=== PATIENT | female | born 1980 | race Caucasian/White ===

== ENCOUNTER 2024-02-16 07:30 | Outpatient (RCR) | payer BC, SELFPAY | END 2024-04-22 08:50 | disposition home or self-care (01) | PROVIDERS: PCP Physician Assistant Medical; Visit Provider Physician Assistant Medical | DX: M54.50 Low back pain, unspecified (principal); Z51.89 Encounter for other specified aftercare | CPT/HCPCS: 80053; 80061; 84443; 97032; 97110; 97140; 97161 ==

== ENCOUNTER 2024-09-13 20:07 | Observation (INO) | payer BC, SELFPAY ==
--- OUTSIDE RECORDS SUMMARY | 2024-09-13 20:09 | XMS_ITS | Encounter Summary ---
Author Organization [place] Address [facility] [place] [address] Care Team Providers Care Direct Entry Midwife Name Role Phone Jared Murillo MD Primary Care Provider [phone] Marc Conn PA-C Unavailable [phone] Sabina Lowery MD Unavailable + Nithin Abbott MD Unavailable Marc Conn PA-C Unavailable [phone] Suzette Hough [facility] Unavailable [phone] Sabina Lowery MD Unavailable + Marc Conn PA-C Unavailable [phone] Sabina Lowery MD Unavailable + Aniket Curiel MD Unavailable Jared Murillo MD Unavailable Reason for Visit * Reason Comments Medication Refill Encounter Details Date Type Department Care Team (Late st Contact Info) Description 06/24/[address] [phone] Sabina Lowery MD [facility] [address] [address] Medication Refill Social History Tobacco Use Types Packs/Day Years Used Date Smoking Tobacco: Every Day Cigarettes Last attempted to quit: 02/27/2019 Smokeless Tobacco: Never Comments:4-5 cigrates every day. Alcohol Use Standard Drinks/Week Comments Yes 0 (1 standard drink = 0.6 oz pur e alcohol) socially Social Connection and Isolat ion Panel [NHANES] Answer Date Recorded Frequency of Communication w ith Friends and Family Once a week 09/05/2019 Frequency of Social Gatherin gs with Friends and Family Once a week 09/05/2019 Attends Congregational Services Never 09/05 Active Member of Clubs or Organizations Yes 09/05/2019 Attends Club or Organization Meetings More than 4 times per year 09/05/2019 Marital Status 09/05/2019 AUDIT-C Answer Date Recorded Q1: How often do you have a drink containing alc ohol? Monthly or less 09/05/2019 Q2: How many drinks containi ng alcohol do you have on a typical day when you are drinking? 3 or 4 09/05/2019 Q3: How often do you have si x or more drinks on one occasion? Less than monthly 09/05/2019 Overall Financial Resource Strain (CARDIA) Answe r Date Recorded How hard is it for you to pa y for the very basics like food, housing, medical care, and heating? Somewhat hard 09/05/2019 PHQ-2 Answer Date Recorded PHQ-2 Score 2 12/04/2020 [facility] - Occupational Stress Questionnaire Answer Date Recorded Feeling of Stress Very much 09/05/2019 Exercise Vital Sign Answer Date Recorde d Days of Exercise per Week 0 days 2019 Minutes of Exercise per Session 0 min 09/05/2019 Hunger Vital Sign Answer Date Recorded Within the past 12 months, y ou worried that your food would run out before you got the money to buy more. Never true 09/05/19 20 Within the past 12 months, t he food you bought just didn't last and you didn't have money to get more. Never true 09/05/2019 PRAPARE - Transportation Answer Date Re corded In the past 12 months, has l ack of transportation kept you from medical appointments or from getting medications? No 12/2019 In the past 12 months, has l ack of transportation kept you from meetings, work, or from getting things needed for daily living? No 09/05/2019 Education Answer Date Recorded What is the highest level of school you have completed or the highest degree you have received? Master's degree (e.g., MA, MS, Hola, MEd, LOOP CUTTER, YASMANY) 09/05/2019 Comments No Sex and Gender Information Value Date Recorded Sex Assigned at Female 11/08/2021 8:44 PM CDT Legal Sex Female 4:39 AM SENIOR TEST ENGINEER Gender Identity Female 11/08/2021 8:44 PM CDT Sexual Orientation Straight 11/08/2021 8: 44 PM CDT documented as of this encounter Miscellaneous Notes * Telephone Encounter - Nichol Mendoaz RN - 06/25/2021 11:34 AM CST Prescription approved per [facility] Refill Protocol. For one time needs PX Nichol Mendoza RN OR TEST ENGINEER documented in this encounter Plan of Treatment Not on file documented as of this encounter Visit Diagnoses Diagnosis General counseling for prescription of oral contraceptives documented in this encounter Additional Health Concerns Assessment Noted Time PHQ-9 Depression Total Score: 13 020 7:03 AM SENIOR TEST ENGINEER documented as of this encounter Care Teams Direct Entry Midwife Relationship Specialty Start Date End Date Jared Murillo MD PCP - General Family Practice 12/25/18 Marc Conn PA-C [address] [place] [address] Assigned PCP 12/24/20 08/07/21 Sabina Lowery MD [facility] [address] [place] [address] Assigned PCP 08/08/21 12/24/21 Nithin Abbott MD [address] [address] [place] [address] Assigned OBGYN Provider 12/25/2105/20 Marc Conn PA-C [facility] [address] [address] Assigned PCP 12/25/21 06/10/22 Suzette Hough CNM [address] [place] [address] Assigned OBGYN Provider 05/21/22 Sabina Lowery MD [address] [place] [address] Assigned PCP 06/11/22 07/15/22 Marc Conn PA-C [facility] [address] [address] Assigned PCP 07/16/22 09/23/22 Sabina Lowery MD [address] [place] [address] Assigned PCP 09/24/22 12/23/22 Aniket Curiel MD [address] [place] [address] Assigned PCP 12/24/22 02/19/24 [place] [address] [place] [address] Assigned PCP 02/20/24 documented as of this encounter
--- OUTSIDE RECORDS SUMMARY | 2024-09-13 20:09 | XMS_ITS | Encounter Summary ---
Author Organization [employer] Address [address] [place] [address]. [place] [address] Care Team Providers Care Continuous Improvement Analyst Name Role Phone Jared Murillo MD Unavailable Jared Murillo MD Primary Care Provider [phone] Sabina Lowery MD Unavailable + Jeffry Naqvi DPGlenys Unavailable [phone] Marc ConnC Unavailable [phone] Sabina Lowery MD Unavailable + iNthin Abbott MD Unavailable Marc ConnC Unavailable [phone] [place] Suzette Ro CNGlenys Unavailable Sabina Lowery MD Unavailable + Marc Conn PA-C Unavailable [phone] Sabina Lowery MD Unavailable + Aniket Curiel MD Unavailable [phone] Jared Murillo MD Unavailable Reason for Visit * Reason Onset Date Comments MH/CD Inpatient 06/21/2019 Encounter Details Date Type Department Care Team (Late st Contact Info) Description 06/21/2019 Telephone [facility] Health Intake [address] [place] [address] Generic, Behavioral Intake, MH/CD Inpatient Social History Tobacco Use Types Packs/Day Years Used Date Smoking Tobacco: Light Smoker Cigarettes Last attempted t o quit: 02/27/2019 Smokeless Tobacco: Never Comments:only smokes when [place] e[place] at the [place] Alcohol Use Standard Drinks/Week Comments Never 0 (1 standard drink = 0.6 oz pur e alcohol) socially AUDIT-C Answer Date Recorded Frequency of Alcohol Consumption Never 06/21/2019 Average Number of Drinks Not on file 019 Frequency of Binge Drinking Not on file 06/01 PHQ-2 Answer Date Recorded PHQ-2 Score 2 05/16/2019 Comments No Sex and Gender Information Value Date Recorded Sex Assigned at Female 11/08/2021 8:44 PM CDT Legal Sex Female 4:39 AM TRENCH DIGGER HELPER Gender Identity Female 11/08/2021 8:44 PM CDT Sexual Orientation Straight 11/08/2021 8: 44 PM CDT documented as of this encounter Miscellaneous Notes * Telephone Encounter - Aura Oviedo RN - 06/21/2019 6:02 PM CST Pt discharged at 1630 to [facility] Waitlist updated to reflect this CH DIGGER HELPER * Telephone Encounter - Luciano Nuñez - 06/21/2019 10:57 AM TRENCH DIGGER HELPER [facility] is reviewing case; technical publications writer heather Taylor ED contact information for any follow up questions; awaiting response CH DIGGER HELPER * Telephone Encounter - Luciano Nuñez - 06/21/2019 10:30 AM TRENCH DIGGER HELPER S - 38/F presenting to ED after suicidal ideation w/ plan and gesture B - Pt. Suicidal w/ plan to drive her car into a field and asphyxiate herself. had Pt. Brother go check on her. suspicious because she was not going to work today. Pt. Reports stress related w/ family conflict and kids who have mental health concerns and possible marital problems. Pmh/x MDD hx of attempts hx of IP MH tx in [facility] 2004 , Pt. Struggles to sleep 3 to 4 hours a night in the past week. A - Vol R - Pt. Requesting admission to [facility] Pt. Reports [facility] is appropriate Due to patients Job patient cannot go to [facility] CH DIGGER HELPER documented in this encounter Plan of Treatment Not on file documented as of this encounter Visit Diagnoses Not on filedocumented in this encounter Additional Health Concerns Infection Onset Date Last Indicated Resolved Time Rule Out COVID-19 04/22/2020 04/22/2020 04/23/2020 7:32 PM CDT Assessment Noted Time PHQ-9 Depression Total Score: 7 05/16/20 19 10:43 AM CDT documented as of this encounter Care Teams Continuous Improvement Analyst Relationship Specialty [place] [address] [place] [address] PCP - General Family Practice 12/25/18 [place] [address] [place] [address] Assigned PCP 07/26/18 03/07/20 Sabina Lowery MD [facility] [address] [place] [address] [address] [place] [address] Assigned PCP 03/08/20 12/23/20 Jeffry Naqvi DPM [address] [facility] [address] [place], [place] [address] Assigned Musculoskeletal Provider 05/22/20 11/21/20 Marc Conn PA-C [address] [place] [address] Assigned PCP 12/24/20 08/07/21 Sabina Lowery MD [facility] [address] [place] [address] Assigned PCP 08/08/21 12/24/21 Nithin Abbott MD [address] [facility] [address] [place] [address] Assigned OBGYN Provider 12/25/2105/20 Marc Conn PA-C [facility] [address] [address] Assigned PCP 12/25/21 06/10/22 Suzette Hough CNM [address] [place] [address] Assigned OBGYN Provider 05/21/22 Sabina Lowery MD [facility] [address] [place] [address] Assigned PCP 06/11/22 07/15/22 Marc Conn PA-C [address] [place] [address] Assigned PCP 07/16/22 09/23/22 Sabina Lowery MD [address] [place] [address] Assigned PCP 09/24/22 12/23/22 Aniket Curiel MD [address] [place] [address] Assigned PCP 12/24/22 02/19/24 [place] [address] [address] [place] [address] Assigned PCP 02/20/24 documented as of this encounter
--- OUTSIDE RECORDS SUMMARY | 2024-09-13 20:09 | XMS_ITS | Encounter Summary ---
Author Organization [place] Address [facility] [place] [address] Care Team Providers Care Dampener Name Role Phone Jared Murillo MD Primary Care Provider [phone] Sabina Lowery MD Unavailable + Nithin Abbott MD Unavailable [phone] Marc Conn PA-C Unavailable [phone] Suzette Hough [facility] Unavailable [phone] Sabina Lowery MD Unavailable + Marc Conn PA-C Unavailable [phone] Sabina Lowery MD Unavailable + Aniket Curiel MD Unavailable Jared Murillo MD Unavailable Encounter Details Date Type Department Care Team (Late st Contact Info) Description 11/08/2021 MyC Medical Advice [address] [address] Chadwick Rosado Social History Tobacco Use Types Packs/Day Years [...] and Family Once a week 09/05/2019 Attends Worship Services Never 09/05 Active Member of Clubs [...] Answer Date Recorded PHQ-2 Score 2 12/04/2020 [facility] - [...] Master's degree (e.g., MA, MS, Hola, MEd, TRAINING CONSULTANT, YASMANY) 09/05/2019 Comments No Sex and Gender Information Value Date Recorded Sex Assigned at Female 11/08/2021 8:44 PM CDT Legal Sex Female 4:39 AM ACCOUNTING DIRECTOR Gender Identity Female 11/08/2021 8:44 PM CDT Sexual Orientation Straight 11/08/2021 8: 44 PM CDT documented as of this encounter Plan of Treatment Not on file documented as of this encounter Visit Diagnoses Not on filedocumented in this encounter Additional Health Concerns Assessment Noted Time PHQ-9 Depression Total Score: 13 020 7:03 AM ACCOUNTING DIRECTOR documented as of this encounter Care Teams Dampener Relationship Specialty Start Date End Date Jared Murillo MD PCP - General Family Practice 12/25/18 Sabina Lowery MD [facility] [address] [place] [address] Assigned PCP 08/08/21 12/24/21 Nithin Abbott MD [address] [facility] [address] [place] [address] Assigned OBGYN Provider 12/25/2105/20 Marc Conn PA-C [address] [place] [address] Assigned PCP 12/25/21 06/10/22 Suzette Hough CNM [address] [address] [place] [address] Assigned OBGYN Provider 05/21/22 Sabina Lowery MD [facility] [address] [place] [address] Assigned PCP 06/11/22 07/15/22 Marc Conn PA-C [address] [place] [address] Assigned PCP 07/16/22 09/23/22 Sabina Lowery MD [address] [place] [address] Assigned PCP 09/24/22 12/23/22 Aniket Curiel MD [address] [address] Assigned PCP 12/24/22 02/19/24 [place] [address] [place] [address] Assigned PCP 02/20/24 documented as of this encounter
--- OUTSIDE RECORDS SUMMARY | 2024-09-13 20:09 | XMS_ITS | Encounter Summary ---
Author Organization [employer] Address [address] [place] [address] Care Team Providers Care Franchise Business Consultant Name Role Phone Shila Dosuza PA-C Primary Care Provider Reason for Visit * Reason Comments BACK PAIN Right Back/Buttock D OI: chronic issue exacerbated on Sep 05MOI: bulged disc, arthritis Encounter Details Date Type Department Care Team (Late st Contact Info) Description 09/11/2024 7:50 PM CORE MICROARCHITECT Office Visit [facility] at [address] [address] Madi Pal MD [address] [place] [id number] Chronic bilateral low back pain without sciatica (Primary Dx) Social History Tobacco Use Types Packs/Day Years Used Date Smoking Tobacco: Former Cigarettes 0.1 22 0 11/22/1992 - 11/22/2014 Smokeless Tobacco: Never Comments:1 pack a month Alcohol Use Standard Drinks/Week Comments Yes 0 (1 standard drink = 0.6 oz pur e alcohol) 2-3 every three months Humiliation, Afraid, Rape, and Kick questionnair e Answer Date Recorded Within the last year, have y ou been afraid of your partner or ex-partner? No 09/12/2024 Within the last year, have y ou been humiliated or emotionally abused in other ways by your partner or ex-partner? No Within the last year, have y ou been kicked, hit, slapped, or otherwise physically hurt by your partner or ex-partner? No 09/12/2024 Within the last year, have y ou been raped or forced to have any kind of sexual activity by your partner or ex-partner? 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 on file Not on file Not on file documented as of this encounter Last Filed Vital Signs Vital Sign Reading Time Taken Comments Blood Pressure - - Pulse - - Temperature 37.1 C (98.7 F) 09/11/2024 7:53 PM CORE MICROARCHITECT Respiratory Rate - - Oxygen Saturation - - Inhaled Oxygen Concentration - - Weight 89.8 kg (198 lb) 09/11/2024 7:53 PM CORE MICROARCHITECT Height 165.1 cm (5' 5) 09/11/2024 7:53 PM CORE MICROARCHITECT Body Mass Index 32.95 09/11/2024 7:53 PM CORE MICROARCHITECT documented in this encounter Patient Instructions * Patient Instructions* Karla Arriaga, ATC - 09/11/2024 7:50 PM CORE MICROARCHITECT Thank you for choosing [facility] for your health care visit today. If you have any questions regarding your visit or next steps, please contact us at [phone]. Madi Pal MD Medication Requests: Prescriptions are filled on Weekdays before 3:00PM For all medication refills: Request a refill using MyChart or contact your Pharmacy Paperwork Requests: FMLA or disability paperwork can be faxed to: [phone] Please allow 7-10 business days for completion of all paperwork. [facility] Worker's Compensation Services: E-mail Address: [email or web address] What is Know Your Cost? Know Your Cost is a service for patients and patient/members to call and receive personalized cost information and estimates across our care group. The phone number is (COST) Monday - Monday 8 AM to 5 PM To request copies of your medical records, call: [phone] (option 4) Diagnosis: Encounter Diagnosis Name Primary? Chronic bilateral low back pain without sciatica Yes Plan: Follow Up: Schedule an appointment with Dr. Blackman for further care. Medications: The following medications were prescribed at your visit : Orders Placed This Encounter Medications methocarbamol (ROBAXIN) 750 MG tablet Sig: Take 1 Tablet (750 mg) by mouth two times daily as needed for up to 14 days. Dispense: 28 Tablet Refill: 0 Medication Refill Requests: Prescription Refill Requests are not filled on Weekends or on Weekdays after 3:00PM For all medication refills: Request a refill using [place] or contact your Pharmacy MICROARCHITECT documented in this encounter Progress Notes * Madi Pla MD - 09/11/2024 7:50 PM CST [facility] Note Date of visit: 09/11/2024 Chief Complaint Patient presents with BACK PAIN Right Back/Buttock DOI: chronic issue exacerbated on Sep 05 NANCY: bulged disc, arthritis HPI: Madison Chaudhari is a 44 y.o. female who presents today fas an established patient for acute on chronic low back pain. Patient sees Dr. Blackman who has been managing her chronic back pain. She has received benefit from epidural injections. Most recently had right paramedian L5-S1 ILESI on 05/20/[address] Blackman. Her back pain was though to be primarily axial. Reports symptoms exacerbated on 09/05/24. Has taken Meloxicam, Acetaminophen, TENS unit, stretches, and chiropractor thus far. Had steroid injection in April which helped. Went on a cruise last week and it started getting worse on 09/05/24 on the cruise. Went to chiropractor today. Now pain is a 10/10. Right low back is mostpainful right now. Patient takes Meloxicam 15mg daily for her back. Has been sleeping OK. Pain is not radiating down legs. Driving is the worst. Sitting is OK. Denies any specific injury or inciting event. The beds were not the most comfortable. History: PMH, PSH, Medications, Allergies were reviewed ROS: No additional concerns noted as per HPI Vital Signs Filed Vitals: 09/11/241952 Temp: 37.1 ??C (98.7 ??F) TempSrc: Oral Weight: 89.8 kg (198 lb) Height: 1.651 m (5' 5) Physical Exam General - No acute distress but does appear in pain. Head - Normocephalic, Atraumatic Eyes - Normal conjunctiva Heart - No cyanosis Lungs - Respirations unlabored Skin - No obvious rash Psych - Cooperative with exam. Odd affect. Musculoskeletal - Back: Inspection - No gross deformity. No erythema or unusual warmth. Palpation - No TTP over lumbar spinous process. No TTP over lumbar facets. TTP over right lower lumbar paraspinal muscles. No TTP over SI joint b/l. ROM - Active extension to 25 degrees (mild pain_. Active flexion to 90 degrees. Active right lateral flexion to 25 degrees. Active left lateral flexion to 25 degrees. Normal right lateral rotation. Normal left lateral rotation. Myotome Strength - L2 (hip flexion): 5/5 L3 (knee extension): 5/5 L4 (ankle dorsiflexion): 5/5 L5 (great toe dorsiflexion): 5/5 S1 (ankle plantar flexion): 5/5 Special Tests - Negative SLR b/l. Negative cross SLR b/l. Negative NELDA test b/l. Negative Slump test b/l. Imaging MRI Lumbar Spine without Contrast on 01/09/24: Multilevel degenerative disc disease. Disc space heights are maintained. No significant facet arthropathy. Suspect mild bilateral SI degenerative joint disease. T11-T12: No significant bulge or posterior disc protrusion. No significant thecal sac stenosis. No significant neural foraminal stenosis. T12-L1: No significant bulge or posterior disc protrusion. No significant thecal sac stenosis. No significant neural foraminal stenosis. L1-L2: No significant bulge or posterior disc protrusion. No significant thecal sac stenosis. No significant neural foraminal stenosis. L2-L3: Mild bulge. Small central posterior disc protrusion with punctate focus increased T2 signal suggesting annular fissure. No significant thecal sac stenosis. No significant neural foraminal stenosis. L3-L4: Mild bulge. Small central posterior disc protrusion with punctate focus increased T2 signal suggesting annular fissure. No significant thecal sac stenosis. No significant neural foraminal stenosis. L4-L5: Mild bulge. Small central posterior disc protrusion. Mild thecal sac stenosis. No significant neural foraminal stenosis. L5-S1: Mild bulge. No significant thecal sac stenosis. No significant neural foraminal stenosis. Independently reviewed by myself Assessment: ICD-10-CM 1. Chronic bilateral low back pain without sciatica M54.50 methocarbamol (ROBAXIN) 750 MG tablet G89.29 Plan Patient has flare up of chronic back pain. It does appear axial in nature. There is no evidence of lumbar radiculopathy. Continue conservative treatment with TENS unit, home care liaison, physical therapy, Meloxicam, and Tylenol. Patient may have possible underlying diagnosis of Fibromyalgia. Rx sent for Methocarbamol 750mg BID PRN to pharmacy. Recommend contacting Dr. Blackman's office if no improvement. Could consider repeat injection as that has helped her or possibly Medrol dose pack if no significant improvement. Madi Pal MD, CAQSM [facility] MICROARCHITECT documented in this encounter Plan of Treatment Not on file documented as of this encounter Visit Diagnoses Diagnosis Chronic bilateral low back pain without sciatica- Primary documented in this encounter Care Teams Franchise Business Consultant Relationship Specialty Start Date End Date Shila Dsouza PA-C [address] [place] [address] PCP - General Physician Interrelated Special Education Teacher 02/14/17 documented as of this encounter
--- OUTSIDE RECORDS SUMMARY | 2024-09-13 20:09 | XMS_ITS | Clinical Summary ---
Author Organization [employer] [facility] Address [place], [place] [address] Care Team Providers Care Induction Furnace Operator Name Role Phone Unknown, Primary Care Provider Unavailabl e Allergies No known active allergies Medications clonazePAM (KLONOPIN) 0.5 mg tablet Take 0.5 mg by mouth at bedtime if needed. 1 Active desvenlafaxine (KHEDEZLA) 50 mg Extended-Release tablet TAKE 1 TABLET BY MOUTH ONE TIME DAILY ALONG WITH 25MG 1 Active Docosahexanoic Acid-Eicosapent 120-180 mg cap Take 2 g by mouth. Active Blisovi Fe , tablet Take 1 Tablet by mouth once daily. 1 Active buPROPion (WELLBUTRIN XL) 150 mg Extended-Release tablet Take 150 mg by mouth once daily. 1 Active fluticasone (50 mcg per actuation) nasal solution (FLONASE)Indicati ons:Eustachian tube dysfunction, bilateral,Acute non-recurrent pansinusitis Inhale 2 Sprays to both nostrils once daily. 16 g 1 Active Active Problems No known active problems Social History Tobacco Use Types Packs/Day Years Used Date Smoking Tobacco: Never Assessed Comments No Sex and Gender Information Value Date Recorded Sex Assigned at Not on file Legal Sex Female 7:26 AM DIRECTOR SPEECH LANGUAGE Gender Identity Not on file Sexual Orientation Not on file Obstetrics History Last Filed Vital Signs Vital Sign Reading Time Taken Comments Blood Pressure 115/80 04/08/2021 8:59 AM CDT Pulse 78 04/08/2021 8:59 AM CDT Temperature 36.5 C (97.7 F) 04/08/2021 8:59 AM CDT Respiratory Rate 16 04/08/2021 8:59 AM CDT Oxygen Saturation 97% 04/08/2021 8:59 AM CDT Inhaled Oxygen Concentration - - Weight 72.6 kg (160 lb) 04/08/2021 8:59 AM CDT Height 166.4 cm (5' 5.5) 04/08/2021 8:59 AM CDT Body Mass Index 26.22 04/08/2021 8:59 AM CDT Plan of Treatment Health Maintenance Due Date Last Done Comments Tdap 1990 Depression screening for age 12+ 1991 HIV for age 15-65 1994 Hepatitis C screening for ag e 18-79 1997 Tetanus booster 1999 Pap test for age 21-65 2000 BMI (ht and wt on same day) for age 18+ 04/08/2022 04/08/2021 COVID-19 vaccine series (2023- season) 2024 10/03/2020 Influenza for age 9-49 03/31/2024 Colonoscopy through age 75 2024 Lipids for age 45-75 2024 Mammogram for age 45-75 2024 Pneumococcal series for age 6-49 Aged Out No longer eligible based on patient's age to complete this topic Insurance [facility] Care Teams Induction Furnace Operator Relationship Specialty Start Date End Date Unknown, PCP - General 07/26/07
--- OUTSIDE RECORDS SUMMARY | 2024-09-13 20:09 | XMS_ITS | Encounter Summary ---
Author Organization [place] Address [facility] [place] [address] Care Team Providers Care Lime Kiln Worker Helper Name Role Phone Jared Murillo MD Unavailable Jared Murillo MD Primary Care Provider [phone] Sabina Lowery MD Unavailable + Jeffry Naqvi DPM Unavailable Marc ConnC Unavailable [phone] Sabina Lowery MD Unavailable + Nithin Abbott MD Unavailable [phone] Marc ConnC Unavailable [place] Suzette Ro CNGlenys Unavailable [phone] Sabina Lowery MD Unavailable + Marc Conn PA-C Unavailable [phone] Sabina Lowery MD Unavailable + Aniket Curiel MD Unavailable Jared Murillo MD Unavailable Encounter Details Date Type Department Care Team (Late st Contact Info) Description 03/06/[address] [facility] Behavioral Health Intake [address] [place] [address] Generic, Behavioral MD Jerardo Social History Tobacco Use Types Packs/Day Years Used Date Smoking Tobacco: Light Smoker Cigarettes Last attempted t o quit: 02/27/2019 Smokeless Tobacco: Never Comments:only smokes [place] Alcohol Use Standard Drinks/Week Comments Yes 0 (1 standard drink = 0.6 oz pur e alcohol) socially Social Connection and Isolat ion Panel [NHANES] Answer Date Recorded Frequency of Communication w ith Friends and Family Once a week 09/05/2019 Frequency of Social Gatherin gs with Friends and Family Once a week 09/05/2019 Attends Adventism Services Never 09/05 Active Member of Clubs [...] 09/05/2019 PHQ-2 Answer Date Recorded PHQ-2 Score 3 02/03/2020 [facility] - Occupational Stress [...] Master's degree (e.g., MA, MS, Hola, MEd, DOT COMPLIANCE SPECIALIST, [place]) 09/05/2019 Comments No Sex and Gender Information Value Date Recorded Sex Assigned at Female 11/08/2021 8:44 PM CDT Legal Sex Female 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 Gender Identity Female 11/08/2021 8:44 PM CDT [...] Assessment Noted Time PHQ-9 Depression Total Score: 12 020 1:08 PM CDT documented as of this encounter Care Teams Lime Kiln Worker Helper Relationship Specialty [place] [address] [address] [address] PCP - General Family Practice 12/25/18 [place] [address] [address] [address] Assigned PCP 07/26/18 03/07/20 Sabina Lowery MD [facility] [address] [place] [address] [address] [place] [address] Assigned PCP 03/08/20 12/23/20 Jeffry Naqvi DPM [address] [facility] [address] [place] [address] Assigned Musculoskeletal Provider 05/22/20 11/21/20 Marc Conn PA-C [address] [place] [address] Assigned PCP 12/24/20 08/07/21 Sabina Lowery MD [facility] [address] [place] [address] Assigned PCP 08/08/21 12/24/21 Nithin Abbott MD [address] [facility] [address] [place] [address] Assigned OBGYN Provider 12/25/2105/20 Marc Conn PA-C [address] [place] [address] Assigned PCP 12/25/21 06/10/22 Suzette Hough CNM [address] [place] [address] Assigned OBGYN Provider 05/21/22 Sabina Lowery MD [facility] [address] [facility] [address] [place] [address] Assigned PCP 06/11/22 07/15/22 Marc Conn PA-C [address] [place] [address] Assigned PCP 07/16/22 09/23/22 Sabina Lowery MD [address] [place] [address] Assigned PCP 09/24/22 12/23/22 Aniket Curiel MD [address], [place] [address] Assigned PCP 12/24/22 02/19/24 [place] [address] [place] [address] Assigned PCP 02/20/24 documented as of this encounter
--- OUTSIDE RECORDS SUMMARY | 2024-09-13 20:09 | XMS_ITS | Continuity of Care Document ---
Author Organization Z [facility] Address [address] [place] [phone] Phone Care Team Providers Care Bottom Bleacher Name Role Phone Unavailable Unavailable Unavailable Procedures Procedure Date Office/outpatient visit,[facility] 2005 X-ray exam of thoracic spine 2 view Advance Directives Directive Yes / No Effective Date File Name No Information Encounters Encounter Description Practice Location Reason(s) For Visit Diagnoses Date Provider Providers Copied on Encounter Z [facility] [place], [address], [address], tel:[phone] [employer] No Information 0200 8 No Information Office/outpat ient visit,[facility], [facility] Z [facility] [place], [address], [place], [address], tel:[phone] [employer] No Information 9200 6 Estefany Guajardo. [facility] [place], [address], [place], [place], [address], . tel:[phone] Referring Provider: Bennett Clemente, [facility] [address], [place] [address], [place], [address] . tel:[phone] Family History Family Member Type Diagnosis Age At Onset No Information Payers Payer name Insurance type Covered alliance party ID Authoriza tirodrigo(s) [facility] [id number] Social History Type Description Quantity Date Captured Comments Sex Female Smoking Status No Information Chief Complaint And Reason For Visit No Information Reason For Referral Reason For Referral No Information History Of Present Illness Encounter Date Complaint History Of Prese nt Illness No Information Functional Status Date Functional Assessmen t No Information Instructions Date Instruction Additional Infor mation No Information Assessments Type Assessment Date No Information Patient Care Teams Name Effective Dates (start - stop) Status Members No Information
--- OUTSIDE RECORDS SUMMARY | 2024-09-13 20:09 | XMS_ITS | Clinical Summary ---
Author Organization [employer] Address [facility] [place] [address] Care Team Providers Care Commercial Food Instructor Name Role Phone Jared Murillo MD Primary Care Provider [phone] Jared Murillo MD Unavailable Allergies No known active allergies Medications * This document contains information received from the source organization and may not represent a complete record from that organization. vitamin B complex with vitamin C (STRESS TAB) tablet Take 1 tablet by mouth daily Active clonazePAM (KLONOPIN) 0.5 MG tabletIndications :MDD (major depressive disorder), recurrent episode, moderate (H) Take 1/2 to 1 po tid prn anxiety 90 tablet 07/29/20 19 Active fish oil-omega-3 fatty acids 1000 MG capsule Take 2 g by mouth daily Active desvenlafaxine (PRISTIQ) 100 MG 24 hr tablet Take 100 mg by mouth Active buPROPion (WELLBUTRIN XL) 150 MG 24 hr tablet Take 150 mg by mouth Active calcium carbonate (TUMS) 500 MG chewable tablet Take 2 tablets by mouth Active omeprazole (PRILOSEC) [address] capsuleIndication s:Chest pain, unspecified type Take 1 capsule (20 mg) by mouth daily 90 capsule 1 02/03/20 21 Active tretinoin (RETIN-A) 0.05 % external creamIndications: Cystic acne Apply topically At Bedtime 45 g 3 05/12/20 22 Active levonorgestrel (MIRENA) 20 MCG/DAY IUDIndications:En counter for insertion of intrauterine contraceptive device 1 each (20 mcg) by Intrauterine route once 05/12/20 22 Active oxyCODONE-acetami nophen (PERCOCET) 5-325 MG tablet Take 1 tablet by mouth every 6 hours as needed for severe pain 12 tablet 01/09/20 24 Active lidocaine (LIDODERM) 5 % patchIndications: Acute bilateral low back pain without sciatica Place 1 patch onto the skin every 24 hours To prevent lidocaine toxicity, patient should be patch free for 12 hrs daily. 15 patch 1 01/15/20 24 Active Active Problems Problem Noted Date Diagnosed Date Severe recurrent major depre ssion without psychotic features 09/13/2019 Major depressive disorder, recurrent episode, mo derate 08/12/2019 MDD (major depressive disord er), recurrent episode, moderate 07/15/2019 Tobacco abuse 01/18/2019 Hypersomnia 12/25/2018 Moderate episode of recurrent major depressive d isorder 08/20/2018 Excessive daytime sleepiness 08/20/2018 Immunizations Name Administration Dates Next Due COVID-19 Vaccine ([employer]) 10/03/2020 Hepatitis A (ADULT 19+) 11/22/2017,05/15/2015 Hepatitis B, Adult 05/28/1997,08/15/1994, 994 Historical DTP/aP 03/28/1985 Influenza (prior to 2023) 06/04/2012,05/31/2007 Influenza Vaccine >6 months,quad, PF ,06/23/2019,07/13/2017,2015,05/14/2015,04/24/2013 Influenza Vaccine IM Ages 6- 35 Months 4 Valent (PF) 04/24/2013 MMR 02/28/1992 Mantoux Tuberculin Skin Test 08/25/2015 Measles 06/03/2013 Mumps Immunity: Titer/md Dx 06/03/2013 OPV, unspecified 11/22/1984 Rubella Immunity: Titer/md Dx 06/03/2013 TD,PF 7+ (Tenivac) 06/13/1994 TDAP Vaccine (Adacel) 01/08/2011,07/18/2007 Typhoid IM 05/15/2015 Varicella Immunity: Titer/MD Dx 06/03/2013 Family History Medical History Relation Comments Bipolar Disorder Brother Attention Deficit Disorder Daughter 1 Anxiety Disorder Daughter 2 No Known Problems Daughter 3 Heart Failure Father ; heart att ack Bone Cancer Mother Depression Sister Relation Status Comments Brother Alive Daughter 1 Alive Daughter 2 Alive Daughter 3 Alive Father Mother Sister Alive Social History Tobacco Use Types Packs/Day Years Used Date Smoking Tobacco: Every Day Cigarettes Last attempted to quit: 02/27/2019 Smokeless Tobacco: Never Tobacco Cessation:Ready to Q uit: Not Asked; Counseling Given: Not Answered Comments:4-5 cigrates every day. Alcohol Use Standard Drinks/Week Comments Yes 0 (1 standard drink = 0.6 oz pur e alcohol) socially Social Connection and Isolat ion Panel [NHANES] Answer Date Recorded Frequency of Communication w ith Friends and Family Once a week 09/05/2019 Frequency of Social Gatherin gs with Friends and Family Once a week 09/05/2019 Attends Advent Services Never 09/05 Active Member of Clubs [...] 09/05/2019 PHQ-2 Answer Date Recorded PHQ-2 Score 1 01/15/2024 [facility] - Occupational [...] things needed for daily living? No 09/05/2019 Adolescent Education Answer Date Record ed Getting School Help Needed Not on file 05/16 Education Answer Date Recorded What is the highest level of school you have completed or the highest degree you have received? 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 Gender Identity Female 11/08/2021 8:44 PM CDT Sexual Orientation Straight 11/08/2021 8: 44 PM CDT Last Filed Vital Signs Vital Sign Reading Time Taken Comments Blood Pressure 130/82 01/09/2024 9:32 PM CDT Pulse 79 01/09/2024 9:32 PM CDT Temperature 36.9 C (98.5 F) 01/09/2024 5:23 PM CDT Respiratory Rate 18 01/09/2024 9:32 PM CDT Oxygen Saturation 98% 01/09/2024 9:32 PM CDT Inhaled Oxygen Concentration - - Weight 91 kg (200 lb 9.9 oz) 01/09/2024 5:23 PM CDT Height 165.1 cm (5' 5) 01/09/2024 5:23 PM CDT Body Mass Index 33.38 01/09/2024 5:23 PM CDT Plan of Treatment Health Maintenance Due Date Last Done Comments CT COLONOGRAPHY 1979 FIT 1979 FLEX SIG 1979 sDNA (Cologuard) 1979 COLONOSCOPY 1989 COLORECTAL CANCER SCREENING 1989 HEPATITIS C SCREENING 1997 Pneumococcal Vaccine: Pediatrics (0 to 5 Years) and At-Risk Patients (6 to 49 Years) (1 of 2 - PCV) 1998 LIPID 08/20/2019 08/20/2018 DTAP/TDAP/TD IMMUNIZATION (5 - Td or Tdap) 01/08/2021 01/08/2011, 07/18/2007, 06/13/1994, Additional history exists YEARLY PREVENTIVE VISIT 12/17/2022 12/18/19 22, 06/22/2020, 08/20/2018 GLUCOSE 05/10/2023 05/10/2020, 12/2019, 08/01/2019, Additional history exists COVID-19 Vaccine ( season) 2024 07/19/2023, 05/30/2022, 08/06/2021, Additional history exists INFLUENZA VACCINE (#1) 2024 , 05/30/2022, 06/30/2021, Additional history exists PHQ-9 07/16/2024 01/15/2024, 11/29, 12/21/2022, Additional history exists HPV TEST 12/17/2024 12/17/2021 PAP 12/17/2024 12/17/2021, 02/28/2018 MAMMO SCREENING 12/22/2024 12/22/2022, 02/10/2014 ANNUAL REVIEW OF HM ORDERS 01/14/2025 01/15/2024 ADVANCE CARE PLANNING 12/17/2026 12/17/2021 ZOSTER IMMUNIZATION (1 of 2) 2029 HEPATITIS B IMMUNIZATION Completed 997, 08/15/1994, 06/13/1994 HIV SCREENING Completed 07/31/2014 DEPRESSION ACTION PLAN Completed 12/25/2018 HPV IMMUNIZATION Aged Out No longer e ligible based on patient's age to complete this topic MENINGITIS IMMUNIZATION Aged Out No l onger eligible based on patient's age to complete this topic Procedures Procedure Name Priority Date/Time Associated Diagnosis Comments MA SCREENING BILATERAL W/ RENE Routine 12/22/2022 2:02 PM CDT Visit for screening mammogram GYNECOLOGIC CYTOLOGY Routine 12/17/2021 3:39 PM CDT Screening for cervical cancer HPV HIGH RISK TYPES DNA CERVICAL Routine 12/17/2021 3:39 PM CDT Screening for cervical cancer BASIC METABOLIC PANEL STAT 05/10/2020 8:46 PM CDT Recurrent major depressive disorder, remission status unspecified LIPID REFLEX TO DIRECT LDL PANEL Routine 08/20/2018 11:15 AM REHABILITATION ENGINEER Routine general medical examination at a health care facility from Last 3 Months or Most Recently Relevant to Health Maintenance Results * MA Screen Bilateral w/Rene (12/22/2022 2:02 PM CDT) Anatomical Region Laterality Modality Breast Bilateral Mammography Impressions 12/23/2022 9:46 AM CDT IMPRESSION: ACR BI-RADS Category 1: Negative RECOMMENDED FOLLOW-UP: Annual routine screening mammogram The results and recommendations of this examination will be communicated to the patient. Fareed Ferrer MD Narrative 12/23/2022 9:46 AM CDT BILATERAL FULL FIELD DIGITAL SCREENING MAMMOGRAM WITH TOMOSYNTHESIS Performed on: 12/22/22 Compared to: 02/10/2014 Technique: This study was evaluated with the assistance of Computer-Aided Detection. Breast Tomosynthesis was used in interpretation. Findings: The breasts are heterogeneously dense, which may obscure small masses. There is no radiographic evidence of malignancy. Jared Murillo MD IMG MAMMOGRAPHY ORDERABLES Final Result * Pap screen with HPV - recommended age 30 - 65 years (12/17/2021 3:39 PM CDT) Interpretation Negative for Intraepithelial Lesion or Malignancy (NILM) 12/21/2021 1:20 PM CDT [facility] Comment Papanicolaou Test Limitations: Cervical cytology is a screening test with limited sensitivity, and regular screening is critical for cancer prevention. Pap tests are primarily effective for the diagnosis/prevent ion of squamous cell carcinoma, not adenocarcinoma or other cancers. 12/21/2021 1:20 PM CDT [facility] Specimen Adequacy Satisfactory for evaluation, endocervical/malik sformation zone component present 12/21/2021 1:20 PM CDT [facility] Clinical Information none 12/21/2021 1:20 PM CDT [facility] Reflex Testing Yes regardless of result 12/21/2021 1:20 PM CDT [facility] Previous Abnormal? No 12/21/2021 1:20 PM CDT [facility] Performing Labs The technical component of this testing was completed at [facility] 12/21/2021 1:20 PM CDT [facility] Brushing CERVIX UTERI STRUCTURE / Unknown 12/17/2021 3:39 PM CDT 12/17/2021 4:17 PM CDT us Nithin MORE - FRANCISCA AP Final Result [facility] Specialty Lab [address] [facility], [address] [place] [address], [facility] [[email or web address]] [phone] * HPV High Risk Types DNA Cervical (12/17/2021 3:39 PM CDT) Other HR HPV Negative Negative 12/23/2021 7:05 AM CDT [facility] HPV16 DNA Negative Negative 12/23/2021 7:05 AM CDT [facility] HPV18 DNA Negative Negative 12/23/2021 7:05 AM CDT [facility] FINAL DIAGNOSIS This patient's sample is negative for HPV DNA. This test was developed and its performance characteristics determined by the [facility]. It has not been cleared or approved by the FDA. The laboratory is regulated under CLIA as qualified to perform high-complexity testing. This test is used for clinical purposes. It should not be regarded as investigational or for research. METHODOLOGY: The Tarah Andrew 4800 system uses automated extraction, simultaneous amplification of HPV (L1 region) and beta-globin, followed by real time detection of fluorescent labeled HPV and beta globin using specific oligonucleotide probes. The test specifically identified types HPV 16 DNA and HPV 18 DNA while concurrently detecting the rest of the high risk types (31, 33, 35, 39, 45, 51, 52, 56, 58, 59, 66 or 68). COMMENTS: This test is not intended for use as a screening device for woman under age 30 with normal cervical cytology. Results should be correlated with cytologic and histologic findings. Close clinical followup is recommended. 12/23/2021 7:05 AM CDT [facility] Brushing CERVIX UTERI STRUCTURE / Unknown Non-blood Collection / Unknown 12/17/2021 3:39 PM CDT 12/22/2021 9:55 AM CDT us Nithin Abbott MD LAB - BLOOD ORDERABLES Final R esult [facility] [address] [facility], [address] [address], [facility] [[email or web address]] [phone] * Basic metabolic panel (05/10/2020 8:46 PM CDT) Sodium 138 133 - 144 mmol/L 05/10/2020 9:14 PM CDT [facility] Potassium 3.7 3.4 - 5.3 mmol/L 05/10/2020 9:14 PM [facility] Chloride 106 94 - 109 mmol/L 05/10/2020 9:14 PM T [facility] Carbon Dioxide 26 20 - 32 mmol/L 05/10/2020 9:22 PM T [facility] Anion Gap 6 3 - 14 mmol/L 05/10/2020 9:22 PM [facility] Glucose 91 70 - 99 mg/dL 05/10/2020 9:22 PM [facility] Urea Nitrogen 12 7 - 30 mg/dL 05/10/2020 9:22 PM [facility] Creatinine 0.77 0.52 - 1.04 mg/dL 05/10/2020 9:22 PM T [facility] GFR Estimate >90 >60 mL/min/{1. 73_m2} 05/10/2020 9:22 PM T [facility] Comment: Non GFR Calc Starting 07/17/2018, serum creatinine based estimated GFR (eGFR) will be calculated using the Chronic Kidney Disease Epidemiology Collaboration (CKD-EPI) equation. GFR Estimate If Black >90 >60 mL/min/{1. 73_m2} 05/10/2020 9:22 PM T [facility] Comment: GFR Calc Starting 07/17/2018, serum creatinine based estimated GFR (eGFR) will be calculated using the Chronic Kidney Disease Epidemiology Collaboration (CKD-EPI) equation. Calcium 9.0 8.5 - 10.1 mg/dL 05/10/2020 9:22 PM CDT [facility] Blood specimen (specimen) 05/10/2020 8:46 PM CDT 05/10/2020 8:47 PM CDT us Ken Lino MD LAB - BLOOD ORDERABLES Final R esult [facility] [address] [place] [address], [facility] [[email or web address]] [phone] [facility] [address] [place] [address], [facility] [[email or web address]] [phone] * (ABNORMAL) Lipid panel reflex to direct LDL Fasting (08/20/2018 11:15 AM REHABILITATION ENGINEER) Cholesterol 243(H) <200 mg/dL 08/21/2018 8:04 AM REHABILITATION ENGINEER [facility] Comment:Desirable: <200 mg/ dl Triglycerides 249(H) <150 mg/dL 08/21/2018 8:04 AM REHABILITATION ENGINEER [facility] Comment: Borderline high: 150-199 mg/dl High: 200-499 mg/dl Very high: >499 mg/dl Fasting specimen HDL Cholesterol 48(L) >49 mg/dL 9 8:05 AM REHABILITATION ENGINEER [facility] LDL Cholesterol Calculated 145(H) <100 mg/dL 08/21/2018 8:05 AM REHABILITATION ENGINEER [facility] Comment: Above desirable: 100-129 mg/dl Borderline High: 130-159 mg/dL High: 160-189 mg/dL Very high: >189 mg/dl Non HDL Cholesterol 195(H) <130 mg/dL 08/21/2018 8:05 AM REHABILITATION ENGINEER [facility] Comment: Above Desirable: 130-159 mg/dl Borderline high: 160-189 mg/dl High: 190-219 mg/dl Very high: >219 mg/dl Blood specimen (specimen) 08/20/2018 11:15 AM REHABILITATION ENGINEER 08/20/2018 11:16 AM REHABILITATION ENGINEER us Jared Murillo MD LAB - BLOOD ORDERABLES Final Res ult [facility] [address] [place] [address] from Last 3 Months or Most Recently Relevant to Health Maintenance [place] [facility] Care Teams Commercial Food Instructor Relationship Specialty Start Date End Date Jared Murillo MD PCP - General Family Practice 12/25/18 [place] [address] [place] [address] Assigned PCP 02/20/24
--- OUTSIDE RECORDS SUMMARY | 2024-09-13 20:09 | XMS_ITS | Encounter Summary ---
Author Organization [place] Address [facility] [place] [address] Care Team Providers Care Pipeline Inspector Name Role Phone Jared Murillo MD Primary Care Provider [phone] Marc Conn PA-C Unavailable [phone] Sabina Lowery MD Unavailable + Nithin Abbott MD Unavailable [phone] Marc Conn PA-C Unavailable [phone] Suzette Hough [facility] Unavailable Sabina Lowery MD Unavailable + Marc Conn PA-C Unavailable [phone] Sabina Lowery MD Unavailable + nAiket Curiel MD Unavailable Jared Murillo MD Unavailable Encounter Details Date Type Department Care Team (Late st Contact Info) Description 05/20/2021 [facility] Medical Advice [address] [phone] Savannah Costello Social History Tobacco Use Types Packs/Day Years [...] and Family Once a week 09/05/2019 Attends Gnosticist Services Never 09/05 Active Member of Clubs [...] Answer Date Recorded PHQ-2 Score 2 12/04/2020 [facility] - Occupational [...] Master's degree (e.g., MA, MS, Hola, MEd, APPLIED COMPUTER SCIENCE PROFESSOR, [place]) 09/05/2019 Comments No Sex and Gender Information Value Date Recorded Sex Assigned at Female 11/08/2021 8:44 PM CDT Legal Sex Female 4:39 AM ADVANCED RESEARCH PROGRAMS DIRECTOR Gender Identity Female 11/08/2021 8:44 PM CDT Sexual Orientation Straight 11/08/2021 8: 44 PM CDT documented as of this encounter Plan of Treatment Not on file documented as of this encounter Visit Diagnoses Not on filedocumented in this encounter Additional Health Concerns Assessment Noted Time PHQ-9 Depression Total Score: 13 020 7:03 AM ADVANCED RESEARCH PROGRAMS DIRECTOR documented as of this encounter Care Teams Pipeline Inspector Relationship Specialty Start Date End Date Jared Murillo MD PCP - General Family Practice 12/25/18 Marc Conn PA-C [address] [place] [id number] Assigned PCP 12/24/20 08/07/21 Sabina Lowery MD [facility] [address] [place] [address] [id number] Assigned PCP 08/08/21 12/24/21 Nithin Abbott MD [address] [facility] [address] [place] [address] Assigned OBGYN Provider 12/25/2105/20 Marc Conn PA-C [address] [place] [address] [phone] Assigned PCP 12/25/21 06/10/22 Suzette Hough CNM [address] [place] [address] [address] [place], [place] [address] Assigned OBGYN Provider 05/21/22 Sabina Lowery MD [facility] [address] [place] [address] [address] [place] [address] Assigned PCP 06/11/22 07/15/22 Marc Conn PA-C [address] [place] [id number] Assigned PCP 07/16/22 09/23/22 Sabina Lowery MD [address] [address] [place] [address] Assigned PCP 09/24/22 12/23/22 Aniket Curiel MD [address] [place] [address] Assigned PCP 12/24/22 02/19/24 [place] [address] [place] [address] Assigned PCP 02/20/24 documented as of this encounter
--- OUTSIDE RECORDS SUMMARY | 2024-09-13 20:09 | XMS_ITS | Clinical Summary ---
Author Organization [employer] Address [address] [place] [address] Care Team Providers Care Petroleum Refining Equipment Operator Name Role Phone Shila Dsouza PA-C Primary Care Provider Source Comments You are receiving this document as you are listed as the primary care provider,follow-up provider, or the patient has been referred to you for consultation.This is in compliance with the Medicare and[facility] EHR Incentive Program,which states Providers who transition their patient to another setting of careor provider of care or refers their patient to another provider of care shouldprovide summary care record for each transition of care or referral. Instructure Allergies No known active allergies Medications * This document contains information received from the source organization and may not represent a complete record from that organization. buPROPion (BUDEPRION XL) 300 MG 24 hour release tablet Take 1 Tablet (300 mg) by mouth every morning. 06/04/20 12 Active B Complex Vitamins (VITAMIN B-COMPLEX) TABS Take 1 Tablet by mouth. Active calcium carbonate (TUMS) 500 MG chewable tablet Chew and swallow 2 Tablets (1,000 mg) by mouth. Active clonazePAM (KLONOPIN) 0.5 MG tablet Take 1 Tablet (0.5 mg) by mouth daily as needed. Active cyclobenzaprin e (FLEXERIL) 10 MG tablet Take 1 Tablet (10 mg) by mouth three times a day. 12/27/19 24 Active DULoxetine (CYMBALTA) 20 MG capsule Take 1 Capsule (20 mg) by mouth daily. 01/11/20 24 Active lidocaine (LIDODERM) 5 % patch Apply 1 Patch to skin every 24 hours. 01/15/20 24 Active multivitamin, stress formula (VITAMIN B COMPLX WITH C) Take 1 Tablet by mouth daily. Active [place]-3 Fatty Acids (FISH OIL) 1000 MG capsule Take 2 Capsules (2,000 mg) by mouth. Active oxyCODONE-acet aminophen (PERCOCET) 5-325 MG tablet Take 1 Tablet by mouth. 01/09/20 24 Active tretinoin (RETIN-A) 0.025 % cream Apply topically daily at bedtime. 12/19/19 24 Active buPROPion (WELLBUTRIN XL) 150 MG 24 hour release tablet Take 1 Tablet (150 mg) by mouth daily. Active gabapentin (NEURONTIN) 100 MG capsule Take 1 Capsule (100 mg) by mouth three times a day. 90 Capsule 01/16/20 24 Active Meloxicam (MOBIC) 15 MG tabletIndicati ons:Right arm pain TAKE 1 TABLET BY MOUTH ONE TIME DAILY 30 Tablet 2 08/27/19 25 Active methocarbamol (ROBAXIN) 750 MG tabletIndicati ons:Chronic bilateral low back pain without sciatica Take 1 Tablet (750 mg) by mouth two times daily as needed for up to 14 days. 28 Tablet 09/11/19 25 025 Active methylPREDNISo lone (MEDROL 21 TABLET DOSEPACK) 4 MG tablet Follow package directions 21 Tablet 5 2:50 AM DRAFTING DETAILER 09/12/19 25 Active Meloxicam (MOBIC) 15 MG tabletIndicati ons:Right arm pain Take 1 Tablet (15 mg) by mouth daily. 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 Idiopathic hypersomnolence 08/24/2012 Depressive disorder 07/05/2007 Overview (03/22/2017): Depression NOS Anxiety state 07/05/2007 Overview (03/22/2017): Anxiety NOS Hyperlipidemia Hypersomnolence disorder Overview (03/03/2016): idiopathic Resolved Problems Problem Noted Date Diagnosed Date Resolved Date Papilledema of right eye 12/06/2017 Overview (12/06/2017): Found on eye exam by Dr. Fareed Crespo at [facility] on 11/29/17. Low back pain 07/08/2016 08/18/2016 Chest pain 11/29/2012 11/22/2017 Overview (03/22/2017): Chest pain, unspecified Assessment & Plan (11/29/2012 5:12 PM CDT): Patient is a 32-year-old female who is otherwise healthy with the exception of anxiety and depression, who presents with a five-day history of intermittent chest pain on the left side which comes at random lasting about a minute before resolving spontaneously. It does not appear to be related to exercise or exertion and has not necessarily resolved with rest. She denies feeling like her heart is skipping a beat and has not had any nausea, vomiting, diaphoresis, arm or jaw pain. She does have family history of heart attack in her father in his early 50s and heart disease in her mother. She smokes 2-3 cigarettes a day, she does not use alcohol or any other street drugs. Most often she does notices her symptoms she is sitting quietly. She is quite active rate raising 3 children. She does have a history of anxiety and depression and is on medications for these, states that she has had one panic attack in her life and this does not feel like a panic attack to her. She denies acid reflux symptoms and cough. She has had no fevers. She has had intermittent vertigo which he describes as the room spinning intermittently for the last couple of days as well. Her vertigo does not coincide with her chest symptoms and happens at different times and also resolve spontaneously. She has been aware of some left ear fullness and thinks this is the cause of her disequilibrium Presence of intrauterine con traceptive device (IUD) 11/22/2017 Overview (03/22/2017): Mirena ; IUD Tobacco abuse 11/22/2017 Encounters Date Type Department Care Team Description 09/12/2024 12:26 AM DRAFTING DETAILER - 09/12/2024 3:08 AM DRAFTING DETAILER [facility] [address] [place] [id number] Delores Harmon MD Acute bilateral low back pain without sciatica (Primary Dx) Discharge Disposition: Home 09/11/2024 7:50 PM DRAFTING DETAILER Office Visit [facility] [address] [address] [address] [place] [phone] Madi Pal MD Chronic bilateral low back pain without sciatica (Primary Dx) 08/27/2024 Refill [facility] [address] [place] [address] Morris Blackman MD Refill from Last 3 Months Immunizations Immunization Administration Dates Next Due DTP 03/28/1985 Flu Vac Preserv Free (3+yrs) 06/04/2012,05/31/20 07 HepA Adult (19+ yrs) 11/22/2017,05/15/2015 HepB Adult (Engerix-B, 20+ y rs, 3 dose series) 05/28/1997,08/15/1994,06/13/1994 Influenza IIV4 (Quadrivalent ) 0.5mL (49150) 07/13/2017,06/03/2016,05/14/2015,2012 MMR 02/28/1992 OPV, Trivalent (Orimune or tOPV) 11/22/1984 Positive Measles Titer 06/03/2013 Positive Mumps Titer 06/03/2013 Positive Rubella Titer 06/03/2013 Positive Varicella Titer 06/03/2013 TB Skin Test (PPD) 08/25/2015 TDAP (ADACEL) 07/18/2007 TDAP (BOOSTRIX) 01/08/2011 Td 06/13/1994 Typhoid (Typhim Vi, IM) 05/15/2015 Family History Medical History Relation Name Comments Coronary Artery Disease Father Hypertension Father Cancer Mother Osteosarcoma; d ied 54 cancer, bone[Other] Mother uncertai n what type Bipolar Disorder Brother Stroke Maternal Grandfather Relation Name Status Comments Father MD Mother (Age 56) bone cance r Brother Maternal Grandfather Social History Tobacco Use Types Packs/Day Years Used Date Smoking Tobacco: Former Cigarettes 0.1 22 0 11/22/1992 - 11/22/2014 Smokeless Tobacco: Never Tobacco Cessation:Counseling Given: Not Answered Comments:1 pack a month Alcohol Use Standard [...] 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 on file Not on file Not on file Last Filed Vital Signs Vital Sign Reading Time Taken Comments Blood Pressure 140/74 09/12/2024 12:28 AM DRAFTING DETAILER Pulse 93 09/12/2024 12:28 AM DRAFTING DETAILER Temperature 36.1 C (96.9 F) 09/12/2024 12:28 AM DRAFTING DETAILER Respiratory Rate 18 09/12/2024 12:28 AM DRAFTING DETAILER Oxygen Saturation 98% 09/12/2024 12:28 AM DRAFTING DETAILER Inhaled Oxygen Concentration - - Weight 89.8 kg (198 lb) 09/11/2024 7:53 PM DRAFTING DETAILER Height 165.1 cm (5' 5) 09/11/2024 7:53 PM DRAFTING DETAILER Body Mass Index 32.95 09/11/2024 7:53 PM DRAFTING DETAILER Plan of Treatment Health Maintenance Due Date Last Done Comments Colon Cancer Screening Plan Due 1979 Hep C Screening (Preventive Services) 1979 IPV (Polio) (2 of 3 - 4-dose series) 12/20/1984 11/22/1984, 11/22/1984 HIV Screening (Preventive Services) 1995 Adult Preventive Visit 1997 Cervical Cancer Screening 10/09/20202017 (Completed), 07/18/2007, 03/09/2001, Additional history exists DTaP/Tdap/Td (5 - Tdap) 01/08/2021 01/09/20 11, 07/18/2007, 06/13/1994, Additional history exists Diabetes Screening- (based on age and BMI) 01/19/2023 01/20/2020 Mammogram 12/23/2023 12/22/2022, 02/10/2014 Cholesterol 01/19/2025 01/20/2020, 11/28, 06/04/2012, Additional history exists Zoster/Shingles (1 of 2) 2029 HepB Completed 05/28/1997, 07/31, 06/13/1994 HepA Completed 11/22/2017, 05/15/2015 COVID-19 Vaccine Completed 08/12/2024, , 05/30/2022, Additional history exists Influenza Completed 08/12/2024, 07/01, 05/30/2022, Additional history exists HPV Vaccine Aged Out No longer eligi ble based on patient's age to complete this topic Hib Aged Out No longer eligi ble based on patient's age to complete this topic MCV4 Aged Out No longer eligi ble based on patient's age to complete this topic Meningococcal B Aged Out No longer el igible based on patient's age to complete this topic Pneumococcal Aged Out No longer eligi ble based on patient's age to complete this topic Procedures Procedure Name Priority Date/Time Associated Diagnosis Comments LIPID PANEL & DIRECT LDL (IF NEEDED) Routine 01/20/2020 12:02 PM CDT Generalized anxiety disorder Encounter for long-term (current) use of other medications ANATOMICAL PATH LIQUID BASED Routine 07/18/2007 7:15 AM DRAFTING DETAILER from Last 3 Months or Most Recently Relevant to Health Maintenance Results * (ABNORMAL) Lipid Panel and Direct LDL (If Needed) (01/20/2020 12:02 PM CDT) Cholesterol 239(H) 0 - 199 mg/dL 01/20/2020 12:28 PM CDT [facility] Triglyceride 206(H) <=149 mg/dL 01/20/2020 12:28 PM CDT [facility] HDL Cholesterol 43 >=40 mg/dL 0 12:28 PM CDT [facility] LDL, Calculated 155(H) <130 mg/dL 0 12:28 PM T [facility] Non HDL Chol, Calculated 196 mg/dL 01/20/2020 12:28 PM T [facility] Cholesterol/HDL Ratio 5.6 01/20/2020 12:28 PM T [facility] Hours Fasting 16 01/20/2020 12:28 PM T [facility] Blood Venipuncture / Unknown 01/20/2020 12:02 PM CDT 01/20/2020 12:02 PM CDT us Aziza Pickard BATTERY PLATE REMOVER, THERMOSPRAY OPERATOR LAB_1 Final Result [facility] [address] [place] [address], [facility] [phone] * Pap Smear (07/18/2007 7:15 AM DRAFTING DETAILER) PAP Smear Liquid Based SEE TEXT No normal range HP CONVERSION Comment: Patient: MADISON CHAUDHARI CERVICAL CYTOLOGY REPORT Pathology # [id number] Date Obtained: Date Received: CYTOLOGIC IMPRESSION: Negative for intraepithelial lesion or malignancy. Verified 07/23/07 by: PATRICK (electronic signature) ADDITIONAL DATA LMP: CLINICAL HIST LIQUID BASED PAP CERVICAL SPECIMEN ADEQUACY: Satisfactory. ENDOCERVICAL CELLS: Present. 07/18/2007 7:15 AM DRAFTING DETAILER Ila Masterson MD LAB_1 Final R esult HP CONVERSION from Last 3 Months or Most Recently Relevant to Health Maintenance Insurance [facility] [employer] [facility] BLUE LINK Care Teams Petroleum Refining Equipment Operator Relationship Specialty Start Date End Date Shila Dsouza, PAClaudeC [address] [place] [address] PCP - General Physician Special Warfare Boat Operator 02/14/17
--- OUTSIDE RECORDS SUMMARY | 2024-09-13 20:09 | XMS_ITS | Encounter Summary ---
Author Organization [employer] Address [address] [place] [address] Care Team Providers Care Front End Alignment Specialist Name Role Phone Shila Dsouza PA-C Primary Care Provider [phone] Reason for Visit * Reason Comments Refill Encounter Details Date Type Department Care Team (Late st Contact Info) Description 08/27/2024 Refill [facility] [address] [place], [place] [address] [place] [address] [place], [place] [address] Refill Social History Tobacco Use Types Packs/Day Years Used Date Smoking Tobacco: Former Cigarettes 0.1 22 0 11/22/1992 - 11/22/2014 Smokeless Tobacco: Never Comments:1 pack a month Alcohol Use Standard Drinks/Week Comments Yes 0 (1 standard drink = 0.6 oz pur e alcohol) 2-3 every three months Comments No Sex and Gender Information Value Date Recorded Sex Assigned at Not on file Legal Sex Female 9:56 PM CDT Gender Identity Not on file Sexual Orientation Not on file 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 Thank you. ER DEVELOPMENT ASSOCIATE * Juany Esteves RN - 08/27/2024 10:47 AM CST Last OV: 03/21/24 Next OV: none scheduled Last refill date: 04/30/24 Plan: The patient's pain is predominantly axial. She does not have a radicular component and neurologically she is grossly intact on physical examination. I did review the patient's lumbar MRI. I do not appreciate any vertebral body fractures or listhesis. There is disc desiccation/dehydration from L2-3 through L5-S1. There are broad-based disc bulges at those levels, along with some annular tears at L2-3 and L3-4. This, along with other degenerative changes, does create some mild/minimal central canal narrowing at L4-5. There may be some mild facet degenerative changes in the lower lumbar spine. Braydon not appreciate any significant neural foraminal stenosis. Fortunately, the patient has noticed significant benefit with the epidural injection. What is interesting, is at the patient's pain is purely axial. She does not have a radicular component and I do not appreciate any significant central canal or neural foraminal stenosis on imaging. I am wondering if just the cortisone medication itself is helping with the patient's symptoms. Nevertheless, the patient's pain is much better now and I stated that now is the time to continue the physical therapy exercises, especially with core strengthening. I did state that for chronic pain, the main goal is tofocus on lumbar spine stabilization. I also stated that for any musculoskeletal pain, the most important aspect of treatment is to work on the musculoskeletal system. Recommendations: 1. Therapy: I encouraged the patient to continue doing her physical therapy exercises, especially the core strengthening once, stating that this is the most important aspect of treatment overall. 2. Medication: Currently, the patient's pain is quite minimal. She can use [id number] pain medications if needed, however pain medications at this time is not warranted since the patient's painis minimal. 3. Injections: Repeat injections were discussed including risks and benefits. I stated that for anyinjection, this can last for 3-6 months, but that the physical therapy exercises will hopefully prolonged benefits. If the patient's pain returns and it is the same as it was before, we could consider a repeat epidural injection if indicated. 4. Surgery: Not indicated at this time. ER DEVELOPMENT ASSOCIATE documented in this encounter Plan of Treatment Not on file documented as of this encounter Visit Diagnoses Diagnosis Right arm pain Pain in limb documented in this encounter Care Teams Front End Alignment Specialist Relationship Specialty Start Date End Date Shila Dsouza, [place] [address] [place] [address] PCP - General Physician Supervisor Boilermaking Shop 02/14/17 documented as of this encounter
--- OUTSIDE RECORDS SUMMARY | 2024-09-13 20:09 | XMS_ITS | Encounter Summary ---
Author Organization [employer] Address [address] [place] [address] Care Team Providers Care Launch Engineer Name Role Phone Shila Dsouza PA-C Primary Care Provider [phone] Reason for Visit * Reason Comments Back Pain Encounter Details Date Type Department Care Team (Late st Contact Info) Description 09/12/2024 12:26 AM [facility] [employer] - 09/12/2024 3:08 AM [facility] [employer] [address], [place] [id number] Delores Harmon MD [address] [place] [address] Acute bilateral low back pain without sciatica (Primary Dx) Discharge Disposition: Home Social History Tobacco Use Types Packs/Day Years [...] 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 on file Not on file Not on file documented as of this encounter Last Filed Vital Signs Vital Sign Reading Time Taken Comments Blood Pressure 140/74 09/12/2024 12:28 AM [facility] [employer] Pulse 93 09/12/2024 12:28 AM [facility] [employer] Temperature 36.1 C (96.9 F) 09/12/2024 12:28 AM [facility] [employer] Respiratory Rate 18 09/12/2024 12:28 AM CHAR [employer] Oxygen Saturation 98% 09/12/2024 12:28 AM [facility] [employer] Inhaled Oxygen Concentration - - Weight - - Height - - Body Mass Index - - documented in this encounter Functional Status * Question Answer Date of Assessment Author Within the last year, have y ou been humiliated or emotionally abused in other ways by your partner or ex-partner? No 09/12/2024 12:39 AM Ricco Majano RN Within the last year, have y ou been raped or forced to have any kind of sexual activity by your partner or ex-partner? No 09/12/2024 12:39 AM Ricco Majano RN Within the last year, have y ou been kicked, hit, slapped, or otherwise physically hurt by your partner or ex-partner? No 09/12/2024 12:39 AM Jameson Majano RN * Intimate Partner Violence Question Answer Date of Assessment Author Within the last year, have y ou been afraid of your partner or ex-partner? No 09/12/2024 12:39 AM Jameson Majano RN documented as of this encounter Discharge Instructions * Discharge Instructions* Veronica Jaquez MD - 09/12/2024 2:23 AM [facility] [employer] You were seen in the emergency department today for back pain. To help with pain: You may alternate taking Ibuprofen and Tylenol every 3 hours for pain if needed. (For example, if you took Ibuprofen at 8:00 am, you could take Tylenol at 11:00 am. Then you could repeat Ibuprofen at2:00 pm and then repeat Tylenol at 5:00 pm, etc.) Ibuprofen 600 mg every 6 hours (no more than 3200 mg / 24 hours) Tylenol 650 mg every 4-6 hours (no more than 4000 mg / 24 hours) - Take the medrol dose pack as prescribed You can also use ice and/or heat for pain as well (alternate 20min on, 20-40min off). No heavy lifting for the next few days, but be sure to stay active so your muscles do not stiffen up more. Please return to the emergency department if you have worsening pain, fevers, numbness, weakness, incontinence or inability to go to the bathroom normally, chest pain, difficulty breathing, or any other new or concerning symptoms. Otherwise, please follow up with your primary physician within the next week for recheck and ongoing management. [employer] documented in this encounter Medications at Time of Discharge B Complex Vitamins (VITAMIN B-COMPLEX) TABS Take 1 Tablet by mouth. buPROPion (BUDEPRION XL) 300 MG 24 hour release tablet Take 1 Tablet (300 mg) by mouth every morning. 06/04/2012 buPROPion (WELLBUTRIN XL) 150 MG 24 hour release tablet Take 1 Tablet (150 mg) by mouth daily. calcium carbonate (TUMS) 500 MG chewable tablet Chew and swallow 2 Tablets (1,000 mg) by mouth. clonazePAM (KLONOPIN) 0.5 MG tablet Take 1 Tablet (0.5 mg) by mouth daily as needed. cyclobenzaprine (FLEXERIL) 10 MG tablet Take 1 Tablet (10 mg) by mouth three times a day. 12/27/2023 DULoxetine (CYMBALTA) 20 MG capsule Take 1 Capsule (20 mg) by mouth daily. 01/11/2024 lidocaine (LIDODERM) 5 % patch Apply 1 Patch to skin every 24 hours. 01/15/2024 Meloxicam (MOBIC) 15 MG tabletIndication s:Right arm pain TAKE 1 TABLET BY MOUTH ONE TIME DAILY 30 Tablet 2 08/27/2024 methocarbamol (ROBAXIN) 750 MG tabletIndication s:Chronic bilateral low back pain without sciatica Take 1 Tablet (750 mg) by mouth two times daily as needed for up to 14 days. 28 Tablet 09/11/2024 methylPREDNISolo ne (MEDROL 21 TABLET DOSEPACK) 4 MG tablet Follow package directions 21 Tablet 09/12/2024 2:50 AM CHAR [employer] 09/12/2024 multivitamin, stress formula (VITAMIN B COMPLX WITH C) Take 1 Tablet by mouth daily. [place]-3 Fatty Acids (FISH OIL) 1000 MG capsule Take 2 Capsules (2,000 mg) by mouth. oxyCODONE-acetam inophen (PERCOCET) 5-325 MG tablet Take 1 Tablet by mouth. 01/09/2024 tretinoin (RETIN-A) 0.025 % cream Apply topically daily at bedtime. 12/19/2023 documented as of this encounter ED Notes * Veronica Jaquez MD - 09/12/2024 3:[address] [facility] Emergency Medicine Visit Note Chief Complaint: Back Pain HPI Madison Chaudhari is a 44 y.o. year old female who presents with acute on chronic mid thoracic back pain and lumbar back pain. Patient has been dealing with pain since December, had been going to physical therapy and chiropractor and doing well. About a week ago pain started worsening after she was on a cruise. [place] like the pain was much worse yesterday, was seen by her chiropractor and pain worsened after the adjustment. Also evaluated by [facility] doctor today who started on robaxin but states this doesn't help. Also took 1500mg tylenol at home but acknowledges this was too much at one time. Triage Vitals [09/12/24 0028] Temp (!) 96.9 ??F (36.1 ??C) Temp src Oral Pulse 93 Resp 18 BP (!) 140/74 SpO2 98 % Physical Exam Constitutional: Appears uncomfortable, laying in bed. No acute distress. HEENT: EOMI, PERRL. No scleral icterus, conjunctiva normal. Moist mucous membranes. CV: Regular rate and rhythm. No murmurs, rubs, or gallops. Pulm/Chest: Effort normal, no increased work of breathing. Symmetric chest rise. Lungs clear to ausculation bilaterally. No wheezes, rales, or rhonchi. Abdominal: Soft, non-distended. No tenderness to palpation. No rebound or guarding. MSK: Normal spontaneous ROM of bilateral upper and lower extremities. No peripheral edema. Paraspinal lumbar back pain, no midline back pain Neurological: Alert, answering questions appropriately. No focal neurologic deficits. Skin: Skin is warm and dry. No rash on exposed skin. No pallor. MDM: Presenting with back pain. Patient is afebrile, non-toxic appearing. VS overall reassuring. Differential includes muscular strain or spasm, degenerative joint and disc disease, acute herniated disc, sciatica, fracture, epidural abscess, discitis, vertebral osteomyelitis, nephrolithiasis, pyelonephritis, malignancy, AAA. No NV deficits or complaints. No bowel or bladder dysfunction. No fevers or history of IV drug use.Normal strength, sensation, and DTRs in LE bilaterally. No red flag signs or symptoms concerning for acute compressive syndromes such as cauda equina, history of malignancy or evidence of neoplasia, infectious etiologies such as epidural abscess or transverse myelitis, or traumatic causes such as compression fracture. No urinary symptoms, abdominal/chest pain, or other signsor symptoms to suggestpyelonephritis, pancreatitis, dissection, AAA, or other acute cause for back pain. Imaging and further work up not indicated at this time. Patients current presentation is likely secondary to a muscul oskeletal process. Patient was treated with toradol, oxycodone and lidocaine patch for pain control in the ED with improvement in symptoms and is stable for outpatient management. Will give medrol dose pack for pain outpatient as recommended by outpatient clinic aas well Veronica Jaquez MD ED Course as of 09/12/24 0700 Jayna Sep 12, 2024 011 ATTENDING: I personally saw the patient, performed yanez elements of the visit, and supervised patient care with the ocularist. MDM: 44 year old F with known bulged discs that follows [facility] who now presents with acute on chronic back pain. No red flag symptoms, neuro intact. Will attempt symptom management. Dispo pending ED course. [AA] 0227 Re-evaluated patient. Pacing at the end of the bed. States her pain is a little improved and she is able to ambulate more comfortably now. Discussed plan to send Medrol Dosepak. Offered to send patient other medications or do more medications here in the ED. Patient declined [KT] ED Course User Index [AA] Delores Harmon MD [KT] Veronica Jaquez MD Clinical Impressions as of 09/12/24 0700 Acute bilateral low back pain without sciatica [employer] * Jameson Aranda RN - 09/12/2024 2:[address] [facility] ED Nursing Discharge Note Arrival Information: Patient arrived: Ambulance Patient escorted by: EMS/Ambulance Discharge Information: Patient Accompanied By: Self Transport Mode: Taxi Discharge Disposition: Home Discharge Instructions given and explained to patient: New discharge prescriptions explained LDA in place: Patient verbalized understanding of discharge plan and capable of completing discharge plan: Yes, patient is own decision maker Does patient require hand-off or assistance with discharge plan: No Belongings and medication returned to patient and prompted to retrieve weapons: Yes Patient level of pain on discharge: (0-10) Pain Rating: Rest: 6 Holds documented by nursing during this visit - reviewed chart for most current hold status: Yes Legal Status Orders (From admission, onward) None [employer] documented in this encounter Plan of Treatment Not on file documented as of this encounter Visit Diagnoses Diagnosis Acute bilateral low back pain without sciatica- Primary * Triage Assessment Note - Jameson Aranda RN - 09/12/2024 12:33 AM [facility] [employer] Patient arrived by [facility] from Home with chief complaint: Back pain Symptoms/background (EMS narrative): pt diagnosed with bulging disc in December 2023. Today pt was getting out of car, developed acute back pain from lower thoracic area down thru R hip and referred to Rscapula. Pt seen in clinic today, given muscle relaxer, went to chiropractor for adjustment, pain became a lot worse afterwards. 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 Patch may remain in place for up to 12 hours in any 24 hour period, i.e. patches placed at 0800 should be removed at 2000. May cut patch to appropriate size. Patch Applied 09/12/2024 1:03 AM CHAR [employer] 1 Patch Back oxyCODONE (ROXICODONE) immediate release tablet 5 mg 5 mg, Oral, ONCE, On Jayna 09/12/24 at 0100, For 1 dose Given 09/12/2024 1:10 AM CHAR [employer] 5 mg documented in this encounter Active and Recently Administered Medications Times are shown in CHAR [employer]. Scheduled Medication Order 09/10/2024 09/11/2024 09/12/2024 ketorolac (TORADOL) injection 15 mg (COMPLETED) 15 mg, Intramuscular, ONCE, On Jayna 09/12/24 at 0100, For 1 dose 0102 (Given - Provid er: Jameson Aranda, RN) lidocaine (ASPERCREAM) 4 % patch 1 Patch 1 Patch, Transdermal, ONCE, On Jayna 09/12/24 at 0045, For 1 dose, Apply patch to back. Patch may remain in place for up to 12 hours in any 24 hour period, i.e. patches placed at 0800 should be removed at 2000. May cut patch to appropriate size. 0103 (Patch Applied - Provider: Jameson Aranda, RN)1303 (Due: Patch Removed - Provider: Jameson Aranda, RN) oxyCODONE (ROXICODONE) immediate release tablet 5 mg (COMPLETED) 5 mg, Oral, ONCE, On Jayna 09/12/24 at 0100, For 1 dose 0110 (Given - Provid er: Jameson Aranda RN) documented in this encounter Care Teams Launch Engineer Relationship Specialty Start Date End Date Shila Dsouza PA-C [id number] [place] [address] PCP - General Physician Phosphoric Acid Supervisor 02/14/17 documented as of this encounter
[2024-09-13 20:24] VITALS: BP 150/87; PULSE 91; RESP 18; TEMP 37.1; O2SAT 97; BMI 33.3
[2024-09-13 20:33] LABS: Appearance Urine Clear (Clear); Bilirubin Urine Negative (Negative); Blood Urine Negative (Negative); Color Urine Dark yellow (Yellow); Glucose Urine Negative (Negative); Ketones Urine Negative (Negative); Leukocyte Esterase Urine Negative (Negative); Nitrite Urine Negative (Negative); Protein Urine Trace (Negative); Specific Gravity Urine >= 1.030 (1.000-1.030); Urobilinogen Urine 0.2 (0.2-1.0); pH Urine 5.5 (5.0-8.5)
[2024-09-13 20:43] LABS: Bacteria Urine Few; RBC Urine 0-2 (0-2); Squamous Epithelial Cell Urine Few (None-Few)
[2024-09-13 20:44] LABS: Fine Granular Casts Urine Moderate
--- NOTE | 2024-09-13 20:50 | ED.BACK ---
HPI - Back Pain/Injury General Time Seen by Provider: 20:50 Date Seen: 09/13/24 Chief Complaint: Back Injury/Pain Stated Complaint: Lower back pain Time Seen by Provider: 09/13/24 20:50 Source: patient, family, RN notes reviewed and old records reviewed Mode of arrival: ambulatory Limitations: no limitations History of Present Illness HPI Narrative: Madison is a very pleasant 44-year-old female with history of chronic low back pain occasional use of TENS unit, anxiety depression, elevated LFTs and GERD who come to the emergency room for evaluation regarding ongoing right low back and now flank pain. Patient notes that she has chronic low back pain. Occasionally uses her TENS unit. However she feels that this is more than what she normally feels. A me describes the onset of right lower quadrant pain on September 04 that she attributed to an ovarian cyst. On September 05 that pain actually went away but she had increased and intense right low back pain. This past MondaySeptember 11 it was worse and thus she made an appointment with her chiropractor. After that she notes that her pain was quite bad and went to urgent care at which time they gave her a muscle relaxer. She notes because the pain was so bad she ended up going to [facility] and was given tramadol and oxycodone. She states that she does not like oxycodone but they told her to take it anyway. She notes that she has not had any labs done and she denies any radiological studies. She notes that urination has become more problematic and she feels like she has to push in order to have urine produced. She denies any lower extremity symptoms or fever. She notes that she does have chills and nausea. Patient does have a history of ovarian cysts. She has an IUD in place and denies . She had an MRI in April of 2020 for at which time it was noted that she had some bulging discs and degenerative disease. Related Data Home Medications ?Medication ?Instructions ?Recorded ?Confirmed bupropion HCl 150 mg 24 hr tablet, 150 mg PO QAM 12/19/23 08/19/24 extended release clonazepam 0.5 mg tablet 0.5 mg PO DAILY 12/19/23 08/19/24 duloxetine 20 mg capsule,delayed 20 mg PO BID 12/19/23 08/19/24 release gabapentin 100 mg capsule 100 mg PO 3XD 12/19/23 08/19/24 garlic 5,000 mcg tablet 5 mg PO ONCE 12/19/23 08/19/24 meloxicam 15 mg tablet 15 mg PO DAILY 12/19/23 08/19/24 multivitamin (Daily Multi-Vitamin 1 tab PO QAM 12/19/23 08/19/24 tablet) omeprazole 20 mg capsule,delayed 20 mg PO QDAY 12/19/23 08/19/24 release vitamin B complex 1 tab PO QDAY 12/19/23 08/19/24 Previous Rx's ?Medication ?Instructions ?Recorded tretinoin 0.025 % topical cream 1 applic topical QHS #20 grams 12/19/23 amoxicillin 875 mg-potassium 1 tab PO BID #20 tabs 08/19/24 clavulanate 125 mg tablet tirzepatide (weight loss) 5 mg/0.5 5 mg (0.5 mL) subcut QWEEK #2 mL 09/11/24 mL subcutaneous pen injector (OpenFeint) Allergies Allergy/AdvReac Type Severity Reaction Status Date / Time No Known Drug Allergies Allergy Verified 08/19/24 13:58 Review of Systems Status of ROS: Reports: 10 or more systems reviewed and unremarkable except as noted in History and below Const: Reports: chills; Denies: fever Eyes: Denies: change in vision ENMT: Denies: throat pain, throat swelling, difficulty swallowing or nasal congestion Cardio: Denies: chest pain or shortness of breath with exertion Resp: Denies: shortness of breath or cough GI: Reports: nausea; Denies: abdominal pain, vomiting, diarrhea or difficulty swallowing : Reports: urinary frequency and urinary urgency Musculo: Reports: back pain; Denies: extremity pain Integ/Breast: Denies: rash Neuro: Denies: headache Allergy/Immuno: Denies: throat swelling PFSH PFSH Surgical History History of surgery ?Z98.890 - Other specified postprocedural states (ICD-10) Social History Smoking Status: Never smoker Second hand tobacco smoke exposure: No How often do you have a drink containing alcohol: never AUDIT-C Alcohol total score: 0 Non-prescribed substance use: denies use Exam Narrative: Exam Narrative: Patient is alert and oriented. She has discomfort with moving. Eyes are clear. Oral cavity moist mucous membranes. Neck is supple without lymphadenopathy. Heart with a regular rate and rhythm and lungs are clear bilaterally. Abdomen soft nontender. She has discomfort with palpation over the right SI joint. Discomfort with movement in the right flank. No rashes are noted. Const: Vital Signs, click to edit/add: Vital Signs - 24 hr 09/13/24 20:24 09/13/24 22:00 09/13/24 23:08 Temperature 98.7 F Pulse Rate 89 Pulse Rate [Pulse Oximeter] 91 Respiratory Rate 18 Blood Pressure [Ri ght Upper Arm] 150/87 H Pulse Oximetry 97 95 95 Oxygen Delivery Me thod Room Air 09/13/24 23:15 09/13/24 23:30 Temperature Pulse Rate 93 91 Pulse Rate [Pulse Oximeter] Respiratory Rate 16 Blood Pressure [Ri ght Upper Arm] Pulse Oximetry 96 95 Oxygen Delivery Me thod Documenting provider has reviewed patient's vital signs: yes Course Course ED Course: Differential diagnosis includes but is not limited to exacerbation of chronic back pain, pyelonephritis, ovarian cysts, colitis, musculoskeletal pain, nephrolithiasis. At this time will place IV and use Toradol 15 mg IV, Zofran 4 mg IV and will give normal saline. Plan on CBC, comprehensive panel, CRP, blood culture, urinalysis, respiratory swab and abdominal and pelvis CT with contrast. Patient and her are receptive of this plan. Reevaluation(s) Reevaluation #1: CT is reassuring. Will check x-ray as well with the significantly elevated white count. A plan on admission at this point for early pyelonephritis. Will give 1 dose of Rocephin 1 g IV at this time. Patient is requesting further pain medication and we do use morphine 4 mg IV. Reevaluation #2: CT of the abdomen and pelvis as well as chest x-ray reassuring. At this time I do learn that a me has also been on a Medrol Dosepak which may explain the elevated white count. However, she does have noted urinary symptoms, a positive UA as well as right flank pain that is unusual from her normal back pain. Plan at this time will not change and I will be talking to her rise in at midnight. Patient notes pain is now returning. Will give Dilaudid 0.5 mg IV x1. Vital Signs Vital signs: Initial Vital Signs Temperature 98.7 F 09/13/24 20:24 Temperature Source Temporal Artery Scan 09/13/24 20:24 Pulse Rate 91 09/13/24 20:24 Respiratory Rate 18 09/13/24 20:24 Blood Pressure 150/87 H 09/13/24 20:24 Blood Pressure Mean 108 H 09/13/24 20:24 Blood Pressure Position Sitting 09/13/24 20:24 Pulse Oximetry 97 09/13/24 20:24 Oxygen Delivery Method Room Air 09/13/24 20:24 Vital Signs Temperature 98.7 F 09/13/24 20:24 Pulse Rate 91 09/13/24 20:24 Respiratory Rate 18 09/13/24 20:24 Blood Pressure 150/87 H 09/13/24 20:24 Pulse Oximetry 97 09/13/24 20:24 Oxygen Delivery Method Room Air 09/13/24 20:24 Temperature 98.7 F 09/14/24 01:22 Pulse Rate 67 09/14/24 01:22 Respiratory Rate 16 09/14/24 01:22 Blood Pressure 138/88 09/14/24 01:22 Pulse Oximetry 99 09/14/24 01:22 Oxygen Delivery Method Room Air 09/14/24 01:22 Medications Administered Medications: Generic Name Dose Route Start Last Admin Trade Name Freq PRN Reason Stop Dose Admin Hydromorphone HCl 0.5 mg 09/14/24 00:37 09/14/24 00:46 Hydromorphone 0.5 Mg/0.5 Ml Inj IVP 09/14/24 00:38 0.5 mg ONCE ONE Administration Sodium Chloride 1,000 mls @ 125 mls/hr 09/13/24 23:31 09/13/24 23:46 0.9 % Sodium Chloride 1000 Ml IV 125 mls/hr .Q8H TATIANA Administration Discontinued Medications Generic Name Dose Route Start Last Admin Trade Name Freq PRN Reason Stop Dose Admin Sodium Chloride 500 mls @ 500 mls/hr 09/13/24 21:00 09/13/24 22:30 0.9 % Sodium Chloride 500 Ml IV 09/13/24 21:59 Infused .Q1H ONE Infusion Ceftriaxone Sodium 1 gm/ 100 mls @ 200 mls/hr 09/13/24 22:32 09/13/24 23:36 Sodium Chloride IVPB 09/13/24 22:33 Infused ONCE ONE Infusion Ketorolac Tromethamine 15 mg 09/13/24 21:00 09/13/24 21:39 Ketorolac 15 Mg/Ml Inj IVP 09/13/24 21:01 15 mg ONCE ONE Administration Morphine Sulfate 4 mg 09/13/24 22:35 09/13/24 22:51 Morphine 4 Mg/Ml Inj IVP 09/13/24 22:36 4 mg ONCE ONE Administration Ondansetron HCl 4 mg 09/13/24 21:00 09/13/24 21:39 Ondansetron 2 Mg/Ml Inj IVP 09/13/24 21:01 4 mg ONCE ONE Administration MDM - Back Pain/Injury MDM Narrative Medical decision making narrative: 1. Early pyelonephritis-patient notes urinary symptoms and right flank pain that is unusual in the setting of her chronic back pain. Urinalysis is positive. White count elevated to 20,000 although this may be affected by recent use of Medrol Dosepak. No evidence of sepsis or obstructive neuropathy at this time but blood cultures were drawn. Patient given Rocephin 1 g IV. Pain control with Toradol, morphine and Dilaudid. Zofran greatly help nausea. 2. Chronic back pain-does have tens unit 3. [facility] Medical Records Attestation: I reviewed the patient's medical records. Lab Data Attestation: I reviewed the patient's lab results. Labs: Lab Results 09/13/24 09/13/24 09/13/24 Range/Units 20:24 21:00 21:10 WBC 20.67 H (4.50-11.00) K/uL RBC 4.78 (4.00-5.20) m/uL Hgb 14.1 (12.0-16.0) gm/dL Hct 42.7 (33.0-51.0) % MCV 89 (80-100) fL MCH 30 (26-34) pg MCHC 33 (32-36) gm/dL RDW Coeff of Alhaji 12.6 (11.5-15.5) % Plt Count 399 (140-440) K/uL Neut % (Auto) 79.7 H (42.0-72.0) % Lymph % (Auto) 16.3 L (20-44) % [place] % (Auto) 3.5 (0.0-11.0) % Eos % (Auto) 0.0 (0.0-7.0) % Baso % (Auto) 0.0 (0.0-3.0) % Neut # (Auto) 16.50 H (1.7-7.0) K/uL Lymph # (Auto) 3.40 H (0.90-2.90) K/uL [place] # (Auto) 0.70 (0.00-0.90) K/UL Eos # (Auto) 0.00 (0.00-0.50) K/uL Baso # (Auto) 0.00 (0.00-0.30) K/uL Abs Immat Gran (auto) 0.10 (0.00-0.30) K/uL Imm/Tot Granulo (auto) 0.5 % Sodium 137 (135-149) mmol/L Potassium 3.7 (3.6-5.1) mmol/L Chloride 102 (96-114) mmol/L Carbon Dioxide 23 (20-32) mmol/L Anion Gap 12 (7-15) mEq/L BUN 23 (5-24) mg/dL Creatinine 0.6 (0.5-1.5) mg/dL Estimated Creat Clear 106.55 Estimated GFR 113 ml/min Glucose 149 H (60-115) mg/dL Calcium 9.6 (8.4-10.6) mg/dL Total Bilirubin 0.3 (0.1-1.5) mg/dL AST 29 (12-35) U/L ALT 61 H (4-35) U/L Alkaline Phosphatase 66 (40-150) U/L C-Reactive Protein 0.6 (0.5-1.0) mg/dL Total Protein 7.8 (6.0-8.3) g/dL Albumin 4.8 (3.3-5.0) g/dL Urine Color Dark yellow (Yellow) Urine Appearance Clear (Clear) Urine pH 5.5 (5.0-8.5) Ur Specific [place] >= 1.030 (1.000-1.030) Urine Protein Trace A (Negative) Urine Glucose (UA) Negative (Negative) Urine Ketones Negative (Negative) Urine Blood Negative (Negative) Urine Nitrite Negative (Negative) Urine Bilirubin Negative (Negative) Urine Urobilinogen 0.2 (0.2-1.0) Ur Leukocyte Esterase Negative (Negative) Urine RBC 0-2 (0-2) Urine WBC 10-25 A (0-5) Ur Squamous Epith Cells Few (None-Few) Urine Bacteria Few A (None) Fine Granular Casts Moderate A (None) SARS-CoV-2 (PCR) Negative SARS-CoV-2 (Negative) Influenza Type A (PCR) Negative PCR FLU A (Negative) Influenza Type B (PCR) Negative PCR FLU B (Negative) RSV (PCR) Negative PCR RSV (Negative) Imaging Data CT scan - abdomen: Attestation: I have reviewed the pertinent imaging results. My impression: No evidence of stone Radiologist's impression: Lower chest: Unremarkable. Liver: Unremarkable. Normal in size and attenuation. No suspicious masses. Gallbladder and bile ducts: Unremarkable. No stones or inflammation. No biliary dilatation. Pancreas: Unremarkable. No mass or inflammation. Spleen: Small splenic hypodense lesion that is indeterminate but statistically favored benign (2/43). Normal in size. Adrenal glands: Unremarkable. No nodules. Kidneys: Unremarkable. No suspicious masses, stones, or hydronephrosis. GI tract: Unremarkable. Normal in caliber. No sign of mass or inflammation. Normal appendix. Vasculature: Abdominal aorta is normal in caliber. Mesenteric arteries are patent. Lymph nodes: No lymphadenopathy. Peritoneum/Abdominal Wall: Unremarkable. No sign of mass or infiltration. No free air or significant free fluid. Pelvis: Bladder is unremarkable. Intrauterine IUD. Bones: Unremarkable for age. IMPRESSION: No acute findings to explain the patient`s symptoms. Specifically, no evidence of obstructive urolithiasis. Chest x-ray: Attestation: I have reviewed the pertinent imaging results. Radiologist's impression: Cardiovascular and mediastinum: Heart size and vasculature are normal in caliber and appearance. Lungs and pleural spaces: Lungs are clear. No pleural effusion, or pneumothorax. Bones and soft tissues: Unremarkable for age. IMPRESSION: No evidence of an acute pulmonary process.
[2024-09-13 21:30] LABS: Hematocrit 42.7 % (33.0-51.0); Hemoglobin* 14.1 gm/dL (12.0-16.0); Immature Granulocytes Pct Auto 0.5 %; Lymphocytes Percent Auto 16.3 % (20-44); Mean Corpuscular HGB Conc 33 gm/dL (32-36); Mean Corpuscular Hemoglobin 30 pg (26-34); Mean Corpuscular Volume 89 fL (80-100); Monocytes Percent Auto 3.5 % (0.0-11.0); Neutrophils Percent Auto 79.7 % (42.0-72.0); Platelet Count* 399 K/uL (140-440); RDW Coefficient of Variation % 12.6 % (11.5-15.5); Red Blood Count 4.78 m/uL (4.00-5.20); White Blood Count* 20.67 K/uL (4.50-11.00)
[2024-09-13 21:36] LABS: Slide Review Reflex No
--- OUTSIDE RECORDS SUMMARY | 2024-09-13 21:37 | XMS_ITS | Clinical Summary ---
Author Organization [place] Address [facility] [place] [address] Care Team Providers Care Office Administrative Assistant Name Role Phone Jared Murillo MD Primary Care Provider [phone] Jared Murillo MD Unavailable Allergies No known [...] Name Administration Dates Next Due COVID-19 Vaccine (OneDoc) 10/03/2020 Hepatitis A (ADULT 19+) 11/22/2017,05/15/2015 Hepatitis [...] and Family Once a week 09/05/2019 Attends Cheondoism Services Never 09/05 Active Member of Clubs [...] Answer Date Recorded PHQ-2 Score 1 01/15/2024 [facility] of Occupat ional Health - Occupational [...] Master's degree (e.g., MA, MS, Hola, MEd, OUTREACH WORKER, [place]) 09/05/2019 Comments No Sex and Gender Information Value Date Recorded Sex Assigned at Female 11/08/2021 8:44 PM CDT Legal Sex Female 4:39 AM HAM CURER Gender Identity Female 11/08/2021 8:44 PM CDT [...] DIRECT LDL PANEL Routine 08/20/2018 11:15 AM HAM CURER Routine general medical examination at a health [...] component of this testing was completed at [facility] 12/21/2021 1:20 PM CDT [facility] Brushing CERVIX UTERI STRUCTURE / Unknown 12/17/2021 3:39 PM CDT 12/17/2021 4:17 PM CDT us Nithin MORE - FRANCISCA AP Final Result [facility] Specialty Lab [address] [facility], [address] [place] [address], [facility] [phone] * HPV High Risk Types DNA Cervical (12/17/2021 3:39 PM CDT) Other HR HPV Negative Negative 12/23/2021 7:05 AM CDT [facility] HPV16 DNA Negative Negative 12/23/2021 7:05 AM CDT [facility] HPV18 DNA Negative Negative 12/23/2021 7:05 AM CDT [facility] FINAL DIAGNOSIS This patient's sample is negative for HPV DNA. This test was developed and its performance characteristics determined by the [facility], Molecular Diagnostics Laboratory. It has not been [...] [facility] [address] [facility], [address] [address], [facility] [phone] * Basic metabolic panel (05/10/2020 8:46 PM CDT) Sodium 138 133 - 144 mmol/L 05/10/2020 9:14 PM CDT [facility] Potassium 3.7 3.4 - 5.3 mmol/L 05/10/2020 9:14 PM [facility] Chloride 106 94 - 109 mmol/L 05/10/2020 9:14 PM T [facility] Carbon Dioxide 26 20 - 32 mmol/L 05/10/2020 9:[address] [facility] Anion Gap 6 3 - 14 mmol/L 05/10/2020 9:22 PM [facility] Glucose 91 70 - 99 mg/dL 05/10/2020 9:22 PM [facility] Urea Nitrogen 12 7 - 30 mg/dL 05/10/2020 9:22 PM [facility] Creatinine 0.77 0.52 - 1.04 mg/dL 05/10/2020 9:[address] [facility] GFR Estimate >90 >60 mL/min/{1. 73_m2} 05/10/2020 9:[address] [facility] Comment: Non GFR Calc Starting 07/17/2018, serum creatinine based estimated GFR (eGFR) will be calculated using the Chronic Kidney Disease Epidemiology Collaboration (CKD-EPI) equation. GFR Estimate If Black >90 >60 mL/min/{1. 73_m2} 05/10/2020 9:[address] [facility] Comment: GFR Calc Starting 07/17/2018, serum creatinine based estimated GFR (eGFR) will be calculated using the Chronic Kidney Disease Epidemiology Collaboration (CKD-EPI) equation. Calcium 9.0 8.5 - 10.1 mg/dL 05/10/2020 9:[address] [facility] Blood specimen (specimen) 05/10/2020 8:46 PM CDT 05/10/2020 8:47 PM CDT us Ken Lino MD LAB - BLOOD ORDERABLES Final R esult [facility] [address] [place] [address], [facility] [phone] [facility] [address] [place] [address], [facility] [phone] * (ABNORMAL) Lipid panel reflex to direct LDL Fasting (08/20/2018 11:15 AM HAM CURER) Cholesterol 243(H) <200 mg/dL 08/21/2018 8:04 AM HAM CURER [facility] Comment:Desirable: <200 mg/ dl Triglycerides 249(H) <150 mg/dL 08/21/2018 8:04 AM HAM CURER [facility] Comment: Borderline high: 150-199 mg/dl High: 200-499 mg/dl Very high: >499 mg/dl Fasting specimen HDL Cholesterol 48(L) >49 mg/dL 9 8:05 AM HAM CURER [facility] LDL Cholesterol Calculated 145(H) <100 mg/dL 08/21/2018 8:05 AM HAM CURER [facility] Comment: Above desirable: 100-129 mg/dl Borderline High: 130-159 mg/dL High: 160-189 mg/dL Very high: >189 mg/dl Non HDL Cholesterol 195(H) <130 mg/dL 08/21/2018 8:05 AM HAM CURER [facility] Comment: Above Desirable: 130-159 mg/dl Borderline high: 160-189 mg/dl High: 190-219 mg/dl Very high: >219 mg/dl Blood specimen (specimen) 08/20/2018 11:15 AM HAM CURER 08/20/2018 11:16 AM HAM CURER us Jared Murillo MD LAB - BLOOD ORDERABLES Final Res ult [facility] [address] [place] [address] from Last 3 Months or Most Recently Relevant to Health Maintenance Insurance [place] OF [place] BCBS OF [place] [facility] Care Teams Office Administrative Assistant Relationship Specialty Start Date End Date Jared Murillo MD PCP - General Family Practice 12/25/18 [place] [id number] [place] [id number] Assigned PCP 02/20/24
--- OUTSIDE RECORDS SUMMARY | 2024-09-13 21:37 | XMS_ITS | Encounter Summary ---
Author Organization [place] Address [facility] [place] [address] Care Team Providers Care Storage Worker Name Role Phone Jared Murillo MD Unavailable Jared Murillo MD Primary Care Provider [phone] Sabina Lowery MD Unavailable + Jeffry Naqvi DPM Unavailable Marc ConnC Unavailable [phone] Sabina Lowery MD Unavailable + Nithin Abbott MD Unavailable [phone] Marc ConnC Unavailable [place] Suzette Ro CNGlenys Unavailable [phone] Sabina Lowery MD Unavailable + Marc Conn PA-C Unavailable [phone] Sabina Lowery MD Unavailable + Aniket Curiel MD Unavailable Jared Murillo MD Unavailable Encounter Details Date Type Department Care Team (Late st Contact Info) Description 03/06/[address] 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 Gender Identity Female 11/08/2021 8:44 PM CDT [...] documented as of this encounter Care Teams Storage Worker Relationship Specialty [place] [address] [address] [address] PCP - General Family Practice 12/25/18 [place] [address] [address] [address] Assigned PCP 07/26/18 03/07/20 Sabina Lowery MD [facility] [address] [place] [address] [address] [place] [address] Assigned PCP 03/08/20 12/23/20 Jeffry Naqvi DPM [address] [facility] [address] [place] [address] Assigned Musculoskeletal Provider 05/22/20 11/21/20 Marc Conn PA-C [address] [place] [address] Assigned PCP 12/24/20 08/07/21 Sabina Lowery MD [facility] [address] [place] [address] Assigned PCP 08/08/21 12/24/21 Nithin Abbott MD [address] [facility] [address] [place] [address] Assigned OBGYN Provider 12/25/2105/20 Marc Conn PA-C [address] [place] [address] Assigned PCP 12/25/21 06/10/22 Suzette Hough CNM [address] [place] [address] Assigned OBGYN Provider 05/21/22 Sabina Lowery MD [facility] [address] [facility] [address] [place] [address] Assigned PCP 06/11/22 07/15/22 Marc Conn PA-C [address] [place] [address] Assigned PCP 07/16/22 09/23/22 Sabina Lowery MD [address] [place] [address] Assigned PCP 09/24/22 12/23/22 Aniket Curiel MD [address], [place] [address] Assigned PCP 12/24/22 02/19/24 [place] [address] [place] [address] Assigned PCP 02/20/24 documented as of this encounter
--- OUTSIDE RECORDS SUMMARY | 2024-09-13 21:37 | XMS_ITS | Encounter Summary ---
Author Organization [place] Address [address] [place] [address]. [place] [address] Care Team Providers Care Rn Progressive Care Name Role Phone Jared Murillo MD Unavailable Jared Murillo MD Primary Care Provider [phone] Sabina Lowery MD Unavailable + Jeffry Naqvi DPGlenys Unavailable [phone] Marc ConnC Unavailable [phone] Sabina Lowery MD Unavailable + Nithin Abbott MD Unavailable [phone] Marc ConnC Unavailable [phone] France Suzette Ro CNGlenys Unavailable Sabina Lowery MD Unavailable + Marc Conn PA-C Unavailable [phone] Sabina Lowery MD Unavailable + Aniket Curiel MD Unavailable Jared Murillo MD Unavailable Reason for Visit * Reason Onset Date Comments MH/CD Inpatient 06/21/2019 Encounter Details Date Type Department Care Team (Late st Contact Info) Description 06/21/2019 Telephone [facility] Intake [address] [place] [address] Generic, Behavioral Intake, MH/CD Inpatient Social History [...] PM CDT Legal Sex Female 4:39 AM MARGARINE MAKER Gender Identity Female 11/08/2021 8:44 PM CDT Sexual Orientation Straight 11/08/2021 8: 44 PM CDT documented as of this encounter Miscellaneous Notes * Telephone Encounter - Aura Oviedo RN - 06/21/2019 6:02 PM CST Pt discharged at 1630 to [facility] Waitlist updated to reflect this ARINE MAKER * Telephone Encounter - Luciano Nuñez - 06/21/2019 10:57 AM MARGARINE MAKER [facility] is reviewing case; video games storywriter heather Taylor ED contact information for any follow up questions; awaiting response ARINE MAKER * Telephone Encounter - Luciano Nuñez - 06/21/2019 10:30 AM MARGARINE MAKER S - 38/F presenting to ED after [...] attempts hx of IP [facility] , Pt. Struggles to sleep 3 to 4 hours a night in the past week. A - Vol R - Pt. Requesting admission to [facility] Pt. Reports [facility] is appropriate Due to patients Job patient cannot go to [facility] ARINE MAKER documented in this encounter Plan of Treatment Not on file documented as of this encounter Visit Diagnoses Not on filedocumented in this encounter Additional Health Concerns Infection Onset Date Last Indicated Resolved Time Rule Out COVID-19 04/22/2020 04/22/2020 04/23/2020 7:32 PM CDT Assessment Noted Time PHQ-9 Depression Total Score: 7 05/16/20 19 10:43 AM CDT documented as of this encounter Care Teams Rn Progressive Care Relationship Specialty [place] [address] [place] [address] PCP - General Family Practice 12/25/18 [place] [address] [place] [address] Assigned PCP 07/26/18 03/07/20 Sabina Lowery MD [facility] [address] [place] [address] [address] [place] [address] Assigned PCP 03/08/20 12/23/20 Jeffry Naqvi DPM [address] [facility] [address] [place], [place] [address] Assigned Musculoskeletal Provider 05/22/20 11/21/20 Marc Conn PA-C [address] [place] [address] Assigned PCP 12/24/20 08/07/21 Sabina Lowery MD [facility] [address] [place] [address] Assigned PCP 08/08/21 12/24/21 Nithin Abbott MD [address] [facility] [address] [place] [address] Assigned OBGYN Provider 12/25/2105/20 Marc Conn PA-C [facility] [address] [address] Assigned PCP 12/25/21 06/10/22 Suzette Hough CNM [address] [place] [address] Assigned OBGYN Provider 05/21/22 Sabina Lowery MD [facility] [address] [place] [address] Assigned PCP 06/11/22 07/15/22 Marc Conn PA-C [address] [place] [address] Assigned PCP 07/16/22 09/23/22 Sabina Lowery MD [address] [place] [address] Assigned PCP 09/24/22 12/23/22 Aniket Curiel MD [address] [facility] [place] [address] Assigned PCP 12/24/22 02/19/24 [place] [address] [address] [place] [address] Assigned PCP 02/20/24 documented as of this encounter
--- OUTSIDE RECORDS SUMMARY | 2024-09-13 21:37 | XMS_ITS | Clinical Summary ---
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
--- OUTSIDE RECORDS SUMMARY | 2024-09-13 21:37 | XMS_ITS | Encounter Summary ---
Author Organization [place] Address [facility] [place] [address] Care Team Providers Care Humanities Coordinator Name Role Phone Jared Murillo MD Primary Care Provider [phone] Marc Conn PA-C Unavailable [phone] Sabina Lowery MD Unavailable + Nithin Abbott MD Unavailable [phone] Marc Conn PA-C Unavailable [phone] Suzette Hough [facility] Unavailable [phone] Sabina Lowery MD Unavailable + Marc Conn PA-C Unavailable [phone] Sabina Lowery MD Unavailable + Aniket Curiel MD Unavailable [phone] Jared Murillo MD Unavailable Encounter Details Date Type Department Care Team (Late st Contact Info) Description 05/20/2021 [facility] Medical Advice [address] [phone] Savannah Costello Social History Tobacco Use Types [...] and Family Once a week 09/05/2019 Attends Rastafari Services Never 09/05 Active Member of Clubs [...] Answer Date Recorded PHQ-2 Score 2 12/04/2020 [facility] - Occupational [...] Master's degree (e.g., MA, MS, Hola, MEd, AIRWORTHINESS SAFETY INSPECTOR, YASMANY) 09/05/2019 Comments No Sex and Gender Information Value Date Recorded Sex Assigned at Female 11/08/2021 8:44 PM CDT Legal Sex Female 4:39 AM FISH DRESSING MACHINE FEEDER Gender Identity Female 11/08/2021 8:44 PM CDT Sexual Orientation Straight 11/08/2021 8: 44 PM CDT documented as of this encounter Plan of Treatment Not on file documented as of this encounter Visit Diagnoses Not on filedocumented in this encounter Additional Health Concerns Assessment Noted Time PHQ-9 Depression Total Score: 13 020 7:03 AM FISH DRESSING MACHINE FEEDER documented as of this encounter Care Teams Humanities Coordinator Relationship Specialty Start Date End Date Jared Murillo MD PCP - General Family Practice 12/25/18 Marc Conn PA-C [address] [place] [address] Assigned PCP 12/24/20 08/07/21 Sabina Lowery MD [facility] [address] [place] [address] 152908 Assigned PCP 08/08/21 12/24/21 Nithin Abbott MD [address] [facility] 100 [place] [address] Assigned OBGYN Provider 12/25/2105/20 Marc Conn PA-C [address] [place] [address] [id number] Assigned PCP 12/25/21 06/10/22 Suzette Hough CNM [address] [place] [address] 700 [place], [place] [address] Assigned OBGYN Provider 05/21/22 Sabina Lowery MD [facility] [address] [place] [address] 207 [place] [address] Assigned PCP 06/11/22 07/15/22 Marc Conn PA-C [address] [place] [address] Assigned PCP 07/16/22 09/23/22 Sabina Lowery MD [address] 700 [place] [address] Assigned PCP 09/24/22 12/23/22 Aniket Curiel MD [address] [place] [address] Assigned PCP 12/24/22 02/19/24 [place] [address] [place] [address] Assigned PCP 02/20/24 documented as of this encounter
--- OUTSIDE RECORDS SUMMARY | 2024-09-13 21:37 | XMS_ITS | Encounter Summary ---
Author Organization [place] Address [facility] [place] [address] Care Team Providers Care Manager Licensing Name Role Phone Jared Murillo MD Primary Care Provider [phone] Sabina Lowery MD Unavailable + Nithin Abbott MD Unavailable [phone] Macr Conn PA-C Unavailable [phone] [facility] Unavailable [phone] Sabina Lowery MD Unavailable + Marc Conn PA-C Unavailable [phone] Sabina Lowery MD Unavailable + Aniket Curiel MD Unavailable [phone] Jared Murillo MD Unavailable Encounter Details Date Type Department Care Team (Late st Contact Info) Description 11/08/2021 [facility] Medical Advice [address] [address] Chadwick Rosado Social History Tobacco [...] and Family Once a week 09/05/2019 Attends Confucianism Services Never 09/05 Active Member of Clubs [...] Master's degree (e.g., MA, MS, Hola, MEd, SYSTEMS NAVIGATOR, YASMANY) 09/05/2019 Comments No Sex and Gender Information Value Date Recorded Sex Assigned at Female 11/08/2021 8:44 PM CDT Legal Sex Female 4:39 AM MEDICAL INSURANCE BILLER Gender Identity Female 11/08/2021 8:44 PM CDT Sexual Orientation Straight 11/08/2021 8: 44 PM CDT documented as of this encounter Plan of Treatment Not on file documented as of this encounter Visit Diagnoses Not on filedocumented in this encounter Additional Health Concerns Assessment Noted Time PHQ-9 Depression Total Score: 13 020 7:03 AM MEDICAL INSURANCE BILLER documented as of this encounter Care Teams Manager Licensing Relationship Specialty Start Date End Date Jared Murillo MD PCP - General Family Practice 12/25/18 Sabina Lowery MD [facility] [address] [place] [address] Assigned PCP 08/08/21 12/24/21 Nithin Abbott MD [address] [facility] 100 [place] [address] Assigned OBGYN Provider 12/25/2105/20 Marc Conn PA-C [address] [place] [address] Assigned PCP 12/25/21 06/10/22 Suzette Hough CNM [address] [facility] 700 [place] [address] Assigned OBGYN Provider 05/21/22 Sabina Lowery MD [facility] [address] [place] [address] Assigned PCP 06/11/22 07/15/22 Marc Conn PA-C [address] [place] [address] Assigned PCP 07/16/22 09/23/22 Sabina Lowery MD [address] [place] [address] Assigned PCP 09/24/22 12/23/22 Aniket Curiel MD [address] [address] Assigned PCP 12/24/22 02/19/24 [place] [address] [place] [address] Assigned PCP 02/20/24 documented as of this encounter
--- OUTSIDE RECORDS SUMMARY | 2024-09-13 21:37 | XMS_ITS | Encounter Summary ---
Author Organization [place] Address [facility] [place] [address] Care Team Providers Care Medicinal Chemist Name Role Phone Jared Murillo MD Primary Care Provider [phone] Marc Conn PA-C Unavailable [phone] Sabina Lowery MD Unavailable + Nithin Abbott MD Unavailable [phone] Marc Conn PA-C Unavailable [phone] Suzette Hough [facility] Unavailable Sabina Lowery MD Unavailable + Marc Conn PA-C Unavailable [phone] Sabina Lowery MD Unavailable + Aniket Curiel MD Unavailable [phone] Jared Murillo MD Unavailable Reason for Visit * Reason Comments Medication Refill Encounter Details Date Type Department Care Team (Late st Contact Info) Description 06/24/[address] [phone] Sabina Lowery MD [facility] [address] [address] Medication Refill Social History Tobacco [...] and Family Once a week 09/05/2019 Attends Roman Catholic Services Never 09/05 Active Member of Clubs [...] Answer Date Recorded PHQ-2 Score 2 12/04/2020 [facility]at [facility] Health - Occupational Stress [...] Master's degree (e.g., MA, MS, Hola, MEd, FURNITURE SHAMPOOER, YASMANY) 09/05/2019 Comments No Sex and Gender Information Value Date Recorded Sex Assigned at Female 11/08/2021 8:44 PM CDT Legal Sex Female 4:39 AM HUMAN PERFORMANCE CONSULTANT Gender Identity Female 11/08/2021 8:44 PM CDT Sexual Orientation Straight 11/08/2021 8: 44 PM CDT documented as of this encounter Miscellaneous Notes * Telephone Encounter - Nichol Mendoza RN - 06/25/2021 11:34 AM CST Prescription approved per [facility] Refill Protocol. For one time needs PX Nichol Mendoza RN N PERFORMANCE CONSULTANT documented in this encounter Plan of Treatment Not on file documented as of this encounter Visit Diagnoses Diagnosis General counseling for prescription of oral contraceptives documented in this encounter Additional Health Concerns Assessment Noted Time PHQ-9 Depression Total Score: 13 020 7:03 AM HUMAN PERFORMANCE CONSULTANT documented as of this encounter Care Teams Medicinal Chemist Relationship Specialty Start Date End Date Jared Murillo MD PCP - General Family Practice 12/25/18 Marc Conn PA-C [address] [place] [address] Assigned PCP 12/24/20 08/07/21 Sabina Lowery MD [facility] [address] [place] [address] Assigned PCP 08/08/21 12/24/21 Nithni Abbott MD [address] [address] [place] [address] Assigned OBGYN Provider 12/25/2105/20 Marc Conn PA-C [facility] [address] [address] Assigned PCP 12/25/21 06/10/22 Suzette Hough CNM [address] [place] [address] Assigned OBGYN Provider 05/21/22 Sabina Lowery MD [address] [place] [address] Assigned PCP 06/11/22 07/15/22 Marc Conn PA-C [facility] [address] [address] Assigned PCP 07/16/22 09/23/22 Sabina Lowery MD [address] [place] [address] Assigned PCP 09/24/22 12/23/22 Aniket Curiel MD [address] [place] [address] Assigned PCP 12/24/22 02/19/24 [place] [address] [place] [address] Assigned PCP 02/20/24 documented as of this encounter
--- OUTSIDE RECORDS SUMMARY | 2024-09-13 21:37 | XMS_ITS | Continuity of Care Document ---
Author Organization [facility] Address [address] [place] [id number] Phone Care Team Providers Care Debridging Machine Operator Name Role Phone Unavailable Unavailable Unavailable Procedures Procedure Date Office/outpatient visit,[facility] 2005 X-ray exam of thoracic spine 2 view Advance Directives Directive Yes / No Effective Date File Name No Information Encounters Encounter Description Practice Location Reason(s) For Visit Diagnoses Date Provider Providers Copied on Encounter [facility], [address], [address], tel:[phone] [place] No Information 0200 8 No Information Office/outpat ient visit,[facility], [facility], [address], [place], [address], tel:[phone] [place]um[place] No Information 9200 6 Estefany Guajardo. [facility], [address], [place], [place], [id number], . tel:[phone] Referring Provider: Bennett Clemente, [facility] [address], [place] [address], [address] . tel:[phone] Family History Family Member Type Diagnosis Age At Onset No Information Payers Payer name Insurance type Covered republican ID Authoriza tirodrigo(s) [facility] [id number] Social History Type Description Quantity Date Captured [...]
[2024-09-13] MEDS: 0.9 % SODIUM CHLORIDE 500 ML 500 ML IV (21:38)
--- OUTSIDE RECORDS SUMMARY | 2024-09-13 21:38 | XMS_ITS | Encounter Summary ---
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 Thank you. STRIPPER * Juany Esteves RN - 08/27/2024 10:47 [...] pain is quite minimal. She can use uult-lhb-wmmorsg pain medications if needed, however pain medications [...] 4. Surgery: Not indicated at this time. STRIPPER documented in this encounter Plan of Treatment Not on file documented as of this encounter Visit Diagnoses Diagnosis Right arm pain Pain in limb documented in this encounter Care Teams Tool Sharpener Relationship Specialty Start Date End Date Shila Dsouza, [place] [address] [place] [address] PCP - General Physician Development Eng 02/14/17 documented as of this encounter
--- OUTSIDE RECORDS SUMMARY | 2024-09-13 21:38 | XMS_ITS | Clinical Summary ---
Author Organization [facility] Address [address] [place] [address] Care Team Providers Care Transformation Specialist Name Role Phone Shila Dsouza PA-C Primary Care Provider [phone] Source Comments You are receiving this document as you are listed as the primary care provider,follow-up provider, or the patient has been referred to you for consultation.This is in compliance with the Medicare andPeoples Hospitalcaid EHR Incentive Program,which states Providers who transition their patient to another setting of careor provider of care or refers their patient to another provider of care shouldprovide summary care record for each transition of care or referral. [employer] Allergies No known active allergies Medications * [...] Take 1 Tablet by mouth daily. Active Winthrop-3 Fatty Acids (FISH OIL) 1000 MG capsule [...] package directions 21 Tablet 5 2:50 AM MICROSOFT DEVELOPER 09/12/19 25 Active Meloxicam (MOBIC) 15 MG [...] eye exam by Dr. Fareed Crespo at [facility] on 11/29/17. Low back pain 07/08/2016 08/18/2016 [...] Department Care Team Description 09/12/2024 12:26 AM MICROSOFT DEVELOPER - 09/12/2024 3:08 AM MICROSOFT DEVELOPER [facility] [address] [place] [address] Delores Harmon MD Acute bilateral low back pain without sciatica (Primary Dx) Discharge Disposition: Home 09/11/2024 7:50 PM MICROSOFT DEVELOPER Office Visit [facility] [address] [address] [address] [place] [phone] Madi Pal MD Chronic bilateral low back pain without sciatica (Primary Dx) 08/27/2024 Refill [facility] [address] [place] [address] Morris Blackman MD Refill from Last 3 Months Immunizations Immunization Administration Dates Next Due DTP 03/28/1985 Flu Vac Preserv Free (3+yrs) 06/04/2012,05/31/20 07 HepA Adult (19+ yrs) 11/22/2017,05/15/2015 HepB Adult (Engerix-B, 20+ y rs, 3 dose series) 05/28/1997,08/15/1994,06/13/1994 Influenza IIV4 (Quadrivalent ) 0.5mL (86521) 07/13/2017,06/03/2016,05/14/2015,2012 MMR 02/28/1992 OPV, Trivalent (Orimune or [...] Maternal Grandfather Relation Name Status Comments Father CO Mother (Age 56) bone cance r Brother [...] 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 on file Not on file Last Filed Vital Signs Vital Sign Reading Time Taken Comments Blood Pressure 140/74 09/12/2024 12:28 AM MICROSOFT DEVELOPER Pulse 93 09/12/2024 12:28 AM MICROSOFT DEVELOPER Temperature 36.1 C (96.9 F) 09/12/2024 12:28 AM MICROSOFT DEVELOPER Respiratory Rate 18 09/12/2024 12:28 AM MICROSOFT DEVELOPER Oxygen Saturation 98% 09/12/2024 12:28 AM MICROSOFT DEVELOPER Inhaled Oxygen Concentration - - Weight 89.8 kg (198 lb) 09/11/2024 7:53 PM MICROSOFT DEVELOPER Height 165.1 cm (5' 5) 09/11/2024 7:53 PM MICROSOFT DEVELOPER Body Mass Index 32.95 09/11/2024 7:53 PM MICROSOFT DEVELOPER Plan of Treatment Health Maintenance Due Date [...] PATH LIQUID BASED Routine 07/18/2007 7:15 AM MICROSOFT DEVELOPER from Last 3 Months or Most Recently Relevant to Health Maintenance Results * (ABNORMAL) Lipid Panel and Direct LDL (If Needed) (01/20/2020 12:02 PM CDT) Cholesterol 239(H) 0 - 199 mg/dL 01/20/2020 12:28 PM CDT [facility] Triglyceride 206(H) <=149 mg/dL 01/20/2020 12:28 PM CDT [facility] HDL Cholesterol 43 >=40 mg/dL 0 12:28 PM CDT [facility] LDL, Calculated 155(H) <130 mg/dL 0 12:28 PM T [facility] Non HDL Chol, Calculated 196 mg/dL 01/20/2020 12:28 PM T [facility] Cholesterol/HDL Ratio 5.6 01/20/2020 12:28 PM T [facility] Hours Fasting 16 01/20/2020 12:28 PM T [facility] Blood Venipuncture / Unknown 01/20/2020 12:02 PM CDT 01/20/2020 12:02 PM CDT us Aziza Pickard HOSPITAL SCIENTIST, OFFICE PROFESSIONAL LAB_1 Final Result [facility] [address] [place] [address], [facility] [phone] * Pap Smear (07/18/2007 7:15 AM MICROSOFT DEVELOPER) PAP Smear Liquid Based SEE TEXT No normal range HP CONVERSION Comment: Patient: MADISON CHAUDHARI CERVICAL CYTOLOGY REPORT Pathology # [id number] Date Obtained: Date Received: CYTOLOGIC IMPRESSION: Negative for intraepithelial lesion or malignancy. Verified 07/23/07 by: PATRICK (electronic signature) ADDITIONAL DATA LMP: CLINICAL HIST LIQUID BASED PAP CERVICAL SPECIMEN ADEQUACY: Satisfactory. ENDOCERVICAL CELLS: Present. 07/18/2007 7:15 AM MICROSOFT DEVELOPER Ila Masterson MD LAB_1 Final R esult HP CONVERSION from Last 3 Months or Most Recently Relevant to Health Maintenance Insurance [facility] [employer] [facility] BLUE LINK Care Teams Transformation Specialist Relationship Specialty Start Date End Date Shila Dsouza, PAClaudeC [address] [place] [address] PCP - General Physician Blood Bank Attendant 02/14/17
--- OUTSIDE RECORDS SUMMARY | 2024-09-13 21:38 | XMS_ITS | Encounter Summary ---
Author Organization [employer] [facility] To [facility] Address [address] [place] [address] Care Team Providers Care Infantry Officer Name Role Phone Shila Dsouza PA-C Primary Care Provider [phone] Reason for Visit * Reason Comments BACK PAIN Right Back/Buttock D OI: chronic issue exacerbated on Sep 05MOI: bulged disc, arthritis Encounter Details Date Type Department Care Team (Late st Contact Info) Description 09/11/2024 7:50 PM CLAY DIGGER Office Visit [facility] at [address] [address] Madi Pal MD [address] [facility] [address] [place] [id number] Chronic bilateral low back pain without sciatica [...] 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 Not on file Not on file documented as of this encounter Last Filed Vital Signs Vital Sign Reading Time Taken Comments Blood Pressure - - Pulse - - Temperature 37.1 C (98.7 F) 09/11/2024 7:53 PM CLAY DIGGER Respiratory Rate - - Oxygen Saturation - - Inhaled Oxygen Concentration - - Weight 89.8 kg (198 lb) 09/11/2024 7:53 PM CLAY DIGGER Height 165.1 cm (5' 5) 09/11/2024 7:53 PM CLAY DIGGER Body Mass Index 32.95 09/11/2024 7:53 PM CLAY DIGGER documented in this encounter Patient Instructions * Patient Instructions* Karla Arriaga, ATC - 09/11/2024 7:50 PM CLAY DIGGER Thank you for choosing [facility] for your health care visit today. If you have any questions regarding your visit or next steps, please contact us at [phone]. Madi Pal MD Medication Requests: Prescriptions are filled on Weekdays before 3:00PM For all medication refills: Request a refill using MyChart or contact your Pharmacy Paperwork Requests: FMLA or disability paperwork can be faxed to: [phone] Please allow 7-10 business days for completion of all paperwork. [facility] Worker's Compensation Services: E-mail Address: [email or web address] What is Know Your Cost? Know Your Cost is a service for patients and patient/members to call and receive personalized cost information and estimates across our care group. The phone number is (COST) Monday - Monday 8 AM to 5 PM To request copies of your medical records, call: [phone] (option 4) Diagnosis: Encounter Diagnosis Name Primary? [...] all medication refills: Request a refill using [facility]Buy or contact your Pharmacy DIGGER documented in this encounter Progress Notes * Madi Pal MD - 09/11/2024 7:50 PM CST Orthopedic [...] radiculopathy. Continue conservative treatment with TENS unit, child care centre manager, physical therapy, Meloxicam, and Tylenol. Patient may have possible underlying diagnosis of Fibromyalgia. Rx sent for Methocarbamol 750mg BID PRN to pharmacy. Recommend contacting Dr. Blackman's office if no improvement. Could consider repeat injection as that has helped her or possibly Medrol dose pack if no significant improvement. Madi Pal MD, CAQSM [facility] DIGGER documented in this encounter Plan of Treatment Not on file documented as of this encounter Visit Diagnoses Diagnosis Chronic bilateral low back pain without sciatica- Primary documented in this encounter Care Teams Infantry Officer Relationship Specialty Start Date End Date Shila Dsouza PA-C [address] [place] [address] PCP - General Physician Bariatric Surgeon 02/14/17 documented as of this encounter
--- OUTSIDE RECORDS SUMMARY | 2024-09-13 21:38 | XMS_ITS | Encounter Summary ---
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 ZINE FEEDER ZINE FEEDER documented in this encounter Medications at Time [...] package directions 21 Tablet 09/12/2024 2:50 AM MAGAZINE FEEDER 09/12/2024 multivitamin, stress formula (VITAMIN B COMPLX WITH C) Take 1 Tablet by mouth daily. [place]-3 Fatty Acids (FISH OIL) 1000 MG capsule Take 2 Capsules (2,000 mg) by mouth. oxyCODONE-acetam inophen (PERCOCET) 5-325 MG tablet Take 1 Tablet by mouth. 01/09/2024 tretinoin (RETIN-A) 0.025 % cream Apply topically daily at bedtime. 12/19/2023 documented as of this encounter ED Notes * Veronica Jaquez MD - 09/12/2024 3:08 AM CST [facility] Emergency Medicine Visit Note Chief Complaint: Back [...] worsening after she was on a cruise. [place] like the pain was much worse yesterday, [...] visit, and supervised patient care with the utility arborist. MDM: 44 year old F with known [...] Acute bilateral low back pain without sciatica ZINE FEEDER * Jameson Aranda RN - 09/12/2024 2:40 AM CST [facility] ED Nursing Discharge Note Arrival Information: Patient [...] Legal Status Orders (From admission, onward) None ZINE FEEDER documented in this encounter Plan of Treatment Not on file documented as of this encounter Visit Diagnoses Diagnosis Acute bilateral low back pain without sciatica- Primary * Triage Assessment Note - Jameson Aranda RN - 09/12/2024 12:33 AM MAGAZINE FEEDER Patient arrived by [facility] from Home with [...] nurse finds out): Pt took 1500mg Tylenol NOZZLE AND SLEEVE WORKER ZINE FEEDER documented in this encounter Administered Medications Inactive Administered Medications - up to 3 most recent administrations Medication Order MAR Action Action Date Dose Rate Site ketorolac (TORADOL) injection 15 mg 15 mg, Intramuscular, ONCE, On Jayna 09/12/24 at 0100, For 1 dose Given 09/12/2024 1:02 AM MAGAZINE FEEDER 15 mg Right Deltoid lidocaine (ASPERCREAM) 4 % patch 1 Patch 1 Patch, Transdermal, ONCE, On Jayna 09/12/24 at 0045, For 1 dose, Apply patch to back. Patch may remain in place for up to 12 hours in any 24 hour period, i.e. patches placed at 0800 should be removed at 2000. May cut patch to appropriate size. Patch Applied 09/12/2024 1:03 AM MAGAZINE FEEDER 1 Patch Back oxyCODONE (ROXICODONE) immediate release tablet 5 mg 5 mg, Oral, ONCE, On Jayna 09/12/24 at 0100, For 1 dose Given 09/12/2024 1:10 AM MAGAZINE FEEDER 5 mg documented in this encounter Active and Recently Administered Medications Times are shown in MAGAZINE FEEDER. Scheduled Medication Order 09/10/2024 09/11/2024 09/12/2024 ketorolac [...] RN) documented in this encounter Care Teams Claims Counsel Relationship Specialty Start Date End Date Shila Dsouza PA-C [address] [place] [address] PCP - General Physician Crm Administrator 02/14/17 documented as of this encounter
[2024-09-13] MEDS: ONDANSETRON 2 MG/ML inj 4 MG IVP (21:39)
[2024-09-13] MEDS: KETOROLAC 15 MG/ML inj IVP (21:39)
[2024-09-13 21:44] LABS: Albumin* 4.8 g/dL (3.3-5.0); Chloride* 102 mmol/L (96-114)
[2024-09-13 21:45] LABS: Potassium* 3.7 mmol/L (3.6-5.1); Sodium* 137 mmol/L (135-149)
[2024-09-13 21:47] LABS: Creatinine* 0.6 mg/dL (0.5-1.5); Est. Creatinine Clearance* 106.55; Estimated Glomerular Filt Rate 113 ml/min
[2024-09-13 21:48] LABS: Alanine Aminotransferase* 61 U/L (4-35); Alkaline Phosphatase* 66 U/L (40-150); Anion Gap 12 mEq/L (7-15); Aspartate Amino Transferase* 29 U/L (12-35); Bilirubin Total* 0.3 mg/dL (0.1-1.5); Blood Urea Nitrogen* 23 mg/dL (5-24); Calcium* 9.6 mg/dL (8.4-10.6); Carbon Dioxide* 23 mmol/L (20-32); Glucose* 149 mg/dL (60-115); Total Protein* 7.8 g/dL (6.0-8.3)
[2024-09-13 21:50] LABS: C Reactive Protein* 0.6 mg/dL (0.5-1.0)
[2024-09-13 22:00] VITALS: O2SAT 95
[2024-09-13 22:10] LABS: PCR FLU A Negative PCR FLU A (Negative); PCR FLU B Negative PCR FLU B (Negative); PCR RSV Negative PCR RSV (Negative); SARS PCR* Negative SARS-CoV-2 (Negative)
[2024-09-13] MEDS: MORPHINE 4 MG/ML INJ IVP (22:51)
[2024-09-13] MEDS: cefTRIAXone 1 GM in 0.9 % SODIUM CHLORIDE Mini-bag 100 ML IVPB (22:58)
[2024-09-13 23:08] VITALS: PULSE 89; O2SAT 95
[2024-09-13 23:15] VITALS: PULSE 93; O2SAT 96
[2024-09-13 23:30] VITALS: PULSE 91; RESP 16; O2SAT 95
[2024-09-13] MEDS: 0.9 % SODIUM CHLORIDE 1000 ml 1,000 ML 125 ML IV (23:46)
[2024-09-14] VITALS (8 sets, daily range): BP systolic 101–138; BP diastolic 57–88; PULSE 64–74; RESP 12–16; TEMP 36.6–37.4; O2SAT 92–99; BMI 33.1
[2024-09-14] MEDS: HYDROmorphone 0.5 mg/0.5 ml inj IVP ×4 (00:46→12:14)
--- NOTE | 2024-09-14 01:24 | W.PM.TELEH&P ---
Telehealth- H&P: HPI History of Present Illness Date Seen: 09/14/24 Chief complaint: Lower back pain Narrative: Madison Chaudhari is seen as an Interactive Telehealth visit. Madison Chaudhari is a 44 year old female with PMHx significant for Nicotine dependence, chronic low back pain, GERD, HLP, Elevated LFTs, anxiety and depression who presented to the emergency department with complaints of uncontrolled back pain and abdominal pain. Patient reports she has been having right-sided flank/ back pain for 2 weeks now. She says pain initially started on September 03 more towards on the right side and she thought it was likely ovarian cyst. She says pain then got worse on September 05 and was more towards the back. She did go see chiropractor and after the visit her pain got even worse. She then went to urgent care and they prescribed her muscle relaxant. She says the pain got significantly worse and then she ended up calling 911 and went to [facility]. She reports no imaging was done at the hospital. She says she was given tramadol and oxycodone. She says she does not tolerate oxycodone well and developed headache with that. She was eventually discharged on methylprednisone. Since then she has been having persistent pain. She does complain of intermittent nausea and chills, denies any burning on urination. She says it takes me a lot of straining to urinate and thinks she may be dehydrated. However denies any burning on urination or increased urinary frequency. Denies any lower abdominal cramping pain. She explains the pain as mostly in the right flank area which then radiates to her right outer buttock/leg area. She denies any loss of bladder or bowel control. She says she did have 1 episode of urine incontinence and that was due to not being able to make it to the bathroom due to pain. She is otherwise constipated and has not had a bowel movement for few days. ROS otherwise negative for any chest pain, shortness of breath, headache or dizziness. Workup in the emergency department showed WBC 20.6, hemoglobin 14.1, hematocrit 42.7, platelets 399. BMP was unremarkable. Her AST was 29, ALT 61. UA was negative for leukocyte Estrace, negative for nitrites. Urine WBC 10-25 with few urine bacteria. Nasal swab came back negative for influenza A, B, SARS-CoV-2 and RSV. Chest x-ray showed no evidence of acute pulmonary process. CT abdomen pelvis showed no acute findings to explain patient's symptoms. Specifically no evidence of obstructive urolithiasis. Kidneys were unremarkable with no suspicious masses stones or hydronephrosis. Patient was given a dose of Rocephin in the emergency department along with pain medications. Hospitalist service was asked admit patient for further care. Review of Systems Narrative: Complete ROS was performed, pertinent positives and negatives per HPI. PFSH PFS Surgical History History of surgery ?Z98.890 - Other specified postprocedural states (ICD-10) Social History What is your current living situation?: I presently have a place to live Problems where you live: no known problems Problems where you live details: NA In the past 12 months, utilities in danger of being shut off: no In past 12 months, lack of transportation kept you from medical appts, meetings, work, or getting things needed for daily living: no In the past 12 mos, have been you worried that your food would run out before you had money to buy more?: never true In the past 12 mos, the food you bought just didn't last and you didn't have money to buy more?: never true Highest level of school completed/degree received: Master's degree Smoking Status: Current every day smoker What tobacco products do you use: cigarettes Do you use any of these nicotine containing products: None Second hand tobacco smoke exposure: No How often do you have a drink containing alcohol: never AUDIT-C Alcohol total score: 0 Non-prescribed substance use: denies use Caffeine: No How often does anyone, including family, friends and others, physically hurt you: never How often does anyone, including family, friends and others, insult or talk down to you: never How often does anyone, including family, friends and others, threaten you with harm: never How often does anyone, including family, friends and others, scream or curse at you: never service: No Meds Home Medications and Allergies Home Medications ?Medication ?Instructions ?Recorded ?Confirmed ?Type bupropion HCl 150 mg 24 hr tablet, 150 mg PO QAM 12/19/23 08/19/24 History extended release clonazepam 0.5 mg tablet 0.5 mg PO DAILY 12/19/23 08/19/24 History duloxetine 20 mg capsule,delayed 20 mg PO BID 12/19/23 08/19/24 History release gabapentin 100 mg capsule 100 mg PO 3XD 12/19/23 08/19/24 History garlic 5,000 mcg tablet 5 mg PO ONCE 12/19/23 08/19/24 History meloxicam 15 mg tablet 15 mg PO DAILY 12/19/23 08/19/24 History multivitamin (Daily Multi-Vitamin 1 tab PO QAM 12/19/23 08/19/24 History tablet) omeprazole 20 mg capsule,delayed 20 mg PO QDAY 12/19/23 08/19/24 History release vitamin B complex 1 tab PO QDAY 12/19/23 08/19/24 History Allergies Allergy/AdvReac Type Severity Reaction Status Date / Time No Known Drug Allergies Allergy Verified 08/19/24 13:58 Exam Narrative Exam Narrative: Physical Exam GENERAL: ?vital signs reviewed, Pt in no acute distress HEENT: pupils are equal round and reactive to light NECK: Supple HEART: Regular rate and rhythm without any rubs, murmurs, or gallops. LUNGS: Clear to auscultation bilaterally with good air movement throughout ABDOMEN: Observation from nurse assisted exam, abdomen appears soft, and nondistended with Positive bowel sounds noted, + mild tenderness on right flank and lower abdominal area, EXTREMITIES: Pt has difficulty lifting legs up due to pain. She is able to slowly move them up. SKIN:? Observed warm and dry with color normal Const Vital Signs, click to edit/add: Vital Signs - 24 hr 09/13/24 20:24 09/13/24 22:00 09/13/24 23:08 Temperature 98.7 F Pulse Rate 89 Pulse Rate [Left Radial] Pulse Rate [Pulse Oximeter] 91 Respiratory Rate 18 Blood Pressure [Left Arm] Blood Pressure [Right Upper Arm] 150/87 H Pulse Oximetry 97 95 95 Oxygen Delivery Method Room Air 09/13/24 23:15 09/13/24 23:30 09/14/24 01:22 Temperature 98.7 F Pulse Rate 93 91 Pulse Rate [Left Radial] 67 Pulse Rate [Pulse Oximeter] Respiratory Rate 16 16 Blood Pressure [Left Arm] 138/88 Blood Pressure [Right Upper Arm] Pulse Oximetry 96 95 99 Oxygen Delivery Method Room Air Hospitalist - H&P: Result Labs Labs: Short CBC 09/13/24 Range/Units 21:00 WBC 20.67 H (4.50-11.00) K/uL Hgb 14.1 (12.0-16.0) gm/dL Hct 42.7 (33.0-51.0) % Plt Count 399 (140-440) K/uL BMP 09/13/24 21:00 Sodium 137 Potassium 3.7 Chloride 102 Carbon Dioxide 23 BUN 23 Creatinine 0.6 Glucose 149 H Calcium 9.6 Liver Function 09/13/24 Range/Units 21:00 Total Bilirubin 0.3 (0.1-1.5) mg/dL AST 29 (12-35) U/L ALT 61 H (4-35) U/L Alkaline Phosphatase 66 (40-150) U/L Albumin 4.8 (3.3-5.0) g/dL Urine 09/13/24 Range/Units 20:24 Urine Color Dark yellow (Yellow) Urine Appearance Clear (Clear) Urine pH 5.5 (5.0-8.5) Ur Specific [place] >= 1.030 (1.000-1.030) Urine Protein Trace A (Negative) Urine Glucose (UA) Negative (Negative) Assessment and Plan Assessment and plan (1) Leukocytosis: Status: Acute (2) Hyperlipidemia: Status: Acute (3) Elevated LFTs: Status: Acute (4) GERD (gastroesophageal reflux disease): Status: Acute (5) Obesity (BMI 30.0-34.9): Status: Acute (6) Tobacco dependence: Problem comment: started at age 17 Status: Acute (7) Chronic low back pain: Status: Acute (8) Anxiety and depression: Problem comment: managed by psychiatrist Status: Acute Plan # UTI # Leukocytosis - cont with IV abx with ceftriaxone - CT scan negative for any evidence of hydronephrosis, nephrolithiasis, or pyelonephritis. - cont with pain control. # Back pain - Pt reports pain that is much worse and radiating to right lateral hip. - will obtain CT lumbar spine to r/o any compression deformity. - cont with pain control. # Anxiety and depression - resume home meds. # DVT proph - [facility] Telehealth: Statement Statement Telehealth Visit: Today's History and Physical is provided via interactive telehealth by Susy Valdez MD.? Patient is located at [facility].? Provider is located at [facility].? Nursing staff assisted with the patient's exam. The visit being done today meets criteria for a telehealth visit and the patient or patient?s parent/guardian is aware the visit is a telehealth visit. Camera Start Time: 01:24 Camera End Time: 01:50
[2024-09-14] MEDS: ACETAMINOPHEN 325 MG TABLET 650 MG PO ×4 (03:20→21:42)
[2024-09-14] MEDS: SODIUM CHLORIDE 0.9 % (FLUSH) 10 ML SYRINGE 5 ML IVF ×2 (12:14→23:19)
[2024-09-14] MEDS: HYDROmorphone 2 MG TABLET PO ×2 (13:43→19:25)
[2024-09-14] MEDS: predniSONE 20 MG TABLET 40 MG PO (13:43)
[2024-09-14] MEDS: buPROPion XL 150 MG TABLET PO (13:43)
--- NOTE | 2024-09-14 14:57 | PM.IMPN1 ---
Progress Note: A&P Assessment and plan (1) UTI (urinary tract infection): Problem details: - continue ceftriaxone - await urinary culture Status: Acute (2) Anxiety and depression: Problem details: managed by psychiatrist - continue home meds Status: Chronic (3) Chronic low back pain: Problem details: - Acute on chronic - Multilevel disc disease on lumbar CT with moderate central stenosis at L4-L5, no concerning neurologic findings, conservative management with steroids, NSAIDs, brief period of opioids - I have asked patient to get in touch with her back pain clinic and get an outpatient appointment - if there is further worsening, leukocytosis does not improve, or if UTI is ruled out as a diagnosis, MRI of the back to rule out abscess may be beneficial Status: Acute (4) Leukocytosis: Problem details: - suspect due to UTI Status: Acute Subjective Date Seen: 09/14/24 Interval history: Complains of acute on chronic back pain, right-sided low back pain that radiates down the side of her right hip and leg, not past the knee. Pain is bad enough that she is having trouble ambulating to the bathroom, but denies any weakness, numbness or tingling. She did have 1 episode of urinary incontinence that was voluntary because she could not get to the bathroom in time. She denies any numbness in the groin or buttocks. Denies fevers, but did have some chills or shaking while extremely painful at home. Exam Narrative: Exam Narrative: General: No acute distress. Awake, alert, oriented x3. No pallor. No jaundice. Oropharynx: Clear. Mucous membranes moist. Cardiovascular: Regular rate and rhythm. No murmurs, gallops, or rubs. Respiratory: Clear to auscultation bilaterally. No wheezes or crackles. Abdomen: Bowel sounds present. Soft, nondistended, nontender. Extremities: No lower extremity edema. Neuro: There are no focal deficits. Strength is 5/5 in both lower extremities. Light touch sensation is intact in both lower extremities. Straight leg raise is positive bilaterally. Rectal exam: Perianal sensation is intact, good rectal tone. Const: Vital Signs, click to edit/add: Vital Signs - 24 hr 09/13/24 20:24 09/13/24 22:00 09/13/24 23:08 Temperature 98.7 F Pulse Rate 89 Pulse Rate [Left R adial] Pulse Rate [Pulse Oximeter] 91 Respiratory Rate 18 Blood Pressure [Le ft Arm] Blood Pressure [Ri ght Arm] Blood Pressure [Ri ght Upper Arm] 150/87 H Pulse Oximetry 97 95 95 Oxygen Delivery Me thod Room Air 09/13/24 23:15 09/13/24 23:30 09/14/24 01:21 Temperature 98.7 F Pulse Rate 93 91 Pulse Rate [Left R adial] 67 Pulse Rate [Pulse Oximeter] Respiratory Rate 16 16 Blood Pressure [Le ft Arm] 138/88 Blood Pressure [Ri ght Arm] Blood Pressure [Ri ght Upper Arm] Pulse Oximetry 96 95 99 Oxygen Delivery Me thod Room Air 09/14/24 01:21 09/14/24 01:22 09/14/24 03:04 Temperature 98.7 F 98.7 F Pulse Rate Pulse Rate [Left R adial] 67 67 Pulse Rate [Pulse Oximeter] Respiratory Rate 16 16 16 Blood Pressure [Le ft Arm] 138/88 138/88 Blood Pressure [Ri ght Arm] Blood Pressure [Ri ght Upper Arm] Pulse Oximetry 99 99 99 [facility] Room Air 09/14/24 03:20 09/14/24 07:30 09/14/24 07:30 Temperature 98.7 F 97.8 F Pulse Rate Pulse Rate [Left R adial] 64 64 Pulse Rate [Pulse Oximeter] Respiratory Rate 12 12 Blood Pressure [Le ft Arm] 116/72 Blood Pressure [Ri ght Arm] Blood Pressure [Ri ght Upper Arm] Pulse Oximetry 95 [facility] 09/14/24 10:57 Temperature 98.5 F Pulse Rate Pulse Rate [Left R adial] 71 Pulse Rate [Pulse Oximeter] Respiratory Rate 12 Blood Pressure [Le ft Arm] Blood Pressure [Ri ght Arm] 101/57 L Blood Pressure [Ri ght Upper Arm] Pulse Oximetry 96 Oxygen Delivery Me thod Room Air Labs Labs: Laboratory Results - last 24 hr 09/13/24 09/13/24 09/13/24 20:24 21:00 21:10 WBC 20.67 H RBC 4.78 Hgb 14.1 Hct 42.7 MCV 89 MCH 30 MCHC 33 RDW Coeff of [place] 12.6 Plt Count 399 Neut % (Auto) 79.7 H Lymph % (Auto) 16.3 L [place] % (Auto) 3.5 Eos % (Auto) 0.0 Baso % (Auto) 0.0 Neut # (Auto) 16.50 H Lymph # (Auto) 3.40 H [place] # (Auto) 0.70 Eos # (Auto) 0.00 Baso # (Auto) 0.00 Abs Immat Gran (auto) 0.10 Imm/Tot Granulo (auto) 0.5 Sodium 137 Potassium 3.7 Chloride 102 Carbon Dioxide 23 Anion Gap 12 BUN 23 Creatinine 0.6 Estimated Creat Clear 106.55 Estimated GFR 113 Glucose 149 H Calcium 9.6 Total Bilirubin 0.3 AST 29 ALT 61 H Alkaline Phosphatase 66 C-Reactive Protein 0.6 Total Protein 7.8 Albumin 4.8 Urine Color Dark yellow Urine Appearance Clear Urine pH 5.5 Ur Specific [place] >= 1.030 Urine Protein Trace A Urine Glucose (UA) Negative Urine Ketones Negative Urine Blood Negative Urine Nitrite Negative Urine Bilirubin Negative Urine Urobilinogen 0.2 Ur Leukocyte Esterase Negative Urine RBC 0-2 Urine WBC 10-25 A Ur Squamous Epith Cells Few Urine Bacteria Few A Fine Granular Casts Moderate A SARS-CoV-2 (PCR) Negative SARS-CoV-2 Influenza Type A (PCR) Negative PCR FLU A Influenza Type B (PCR) Negative PCR FLU B RSV (PCR) Negative PCR RSV Ordering Physician: Susy Valdez MD Date of Service: 09/14/24 Procedure(s): CT lumbar spine wo con Accession Number(s): [id number] cc: Susy Valdez MD; Topher CARLOS~ For Patients: As a result of the Cures Act, medical imaging exams and procedure reports are released immediately into your electronic medical record. You may view this report before your referring provider. If you have questions, please contact your health care provider. INDICATION: Severe back pain, worsening, radiating to legs TECHNIQUE: CT lumbar spine without contrast. COMPARISON: None. FINDINGS: Vertebrae: Alignment is normal. There are no fractures or suspicious bony lesions. Discs and facet joints: Mild degenerative disease of the spine. -L1-L2: No significant facet arthropathy. No central or neural foraminal stenosis. -L2-L3: Mild diffuse disc bulge. Mild central stenosis. No neural foraminal stenosis. -L3-L4: Mild diffuse disc bulge. Mild central stenosis. No neural foraminal stenosis. -L4-L5: Moderate diffuse disc bulge. Moderate central stenosis. No neural foraminal stenosis. -L5-S1: Mild diffuse disc bulge. Mild central stenosis. No neural foraminal stenosis. Extraspinal findings: Prevertebral soft tissues and visualized retroperitoneum are unremarkable. IMPRESSION: Multilevel disc bulges, most severe L4-L5 with resulting moderate central stenosis. No acute fracture. Please note that all CT scans at this facility use dose modulation, iterative reconstruction, and/or weight-based dosing when appropriate to reduce radiation dose to as low as reasonably achievable. Dictated by Radha Pavon MD @ 09/14/2024 9:40:51 AM (Electronically Signed)
[2024-09-14] MEDS: DULOXETINE HCL 20 MG CAPSULE DR 40 MG PO (18:03)
[2024-09-14] MEDS: GABAPENTIN 100 MG CAPSULE 200 MG PO (18:03)
--- NOTE | 2024-09-14 19:37 | PC.NURSE ---
End of Shift: Patient pleasant and cooperative. Patient vitally stable, lungs clear, BS WNL, IV SL and intact. Patient independent in room, rates back pain at most 7/10, 0.5mg of IV dilauded given twice, tylenol given twice, and 2mg oral diluaded given twice. Patient tolerating regular diet, urinating well, No BM this shift. Patient using own tens unit.
[2024-09-14] MEDS: cefTRIAXone 2 GM in 0.9 % SODIUM CHLORIDE Mini-bag 100 ML IVPB (23:20)
[2024-09-14] MEDS: polyethylene glycoL 3350 17 GM PACK PO (23:20)
[2024-09-15] MEDS: GABAPENTIN 100 MG CAPSULE 200 MG PO (02:07)
[2024-09-15] MEDS: HYDROmorphone 2 MG TABLET PO ×4 (02:07→18:38)
[2024-09-15] MEDS: clonazePAM 0.5 MG TABLET PO (04:05)
[2024-09-15 04:17] VITALS: BP 147/82; PULSE 74; RESP 16; O2SAT 97
[2024-09-15] MEDS: OMEPRAZOLE 20 MG CAPSULE DR PO (07:21)
--- NOTE | 2024-09-15 07:33 | PC.NURSE ---
End of shift [id number] - Pt alert, oriented, cooperative. Up independently in room. Pt reported pain in low back as 6/10 but reported increased activity tolerance and overall improvement in comfort to RN. Pt observed to ambulate in room and halls during shift. Tolerating RA and regular diet/fluids. Reported difficulty sleeping during shift, given medication per pt request as available in SEP. Pt observed to sleep. Appears to be resting comfortably at end of shift with call light within reach.
[2024-09-15 07:51] LABS: Basophils Percent Auto 0.1 % (0.0-3.0); Eosinophils Percent Auto 0.4 % (0.0-7.0); Hematocrit 39.5 % (33.0-51.0); Hemoglobin* 12.7 gm/dL (12.0-16.0); Immature Granulocytes Pct Auto 0.4 %; Lymphocytes Percent Auto 38.4 % (20-44); Mean Corpuscular HGB Conc 32 gm/dL (32-36); Mean Corpuscular Hemoglobin 29 pg (26-34); Mean Corpuscular Volume 90 fL (80-100); Neutrophils Percent Auto 55.7 % (42.0-72.0); Platelet Count* 319 K/uL (140-440); RDW Coefficient of Variation % 12.4 % (11.5-15.5); Red Blood Count 4.38 m/uL (4.00-5.20); White Blood Count* 14.13 K/uL (4.50-11.00)
[2024-09-15 08:00] LABS: Slide Review Reflex No
[2024-09-15 08:05] LABS: Albumin* 4.1 g/dL (3.3-5.0); Chloride* 104 mmol/L (96-114); Sodium* 139 mmol/L (135-149)
[2024-09-15 08:06] LABS: Potassium* 3.5 mmol/L (3.6-5.1)
[2024-09-15 08:08] LABS: Alanine Aminotransferase* 39 U/L (4-35); Alkaline Phosphatase* 54 U/L (40-150); Anion Gap 9 mEq/L (7-15); Aspartate Amino Transferase* 21 U/L (12-35); Bilirubin Total* 0.2 mg/dL (0.1-1.5); Blood Urea Nitrogen* 17 mg/dL (5-24); Calcium* 8.9 mg/dL (8.4-10.6); Carbon Dioxide* 26 mmol/L (20-32); Creatinine* 0.6 mg/dL (0.5-1.5); Est. Creatinine Clearance* 106.55; Estimated Glomerular Filt Rate 113 ml/min; Glucose* 85 mg/dL (60-115); Total Protein* 6.6 g/dL (6.0-8.3)
[2024-09-15 08:21] VITALS: BP 146/90; PULSE 66; RESP 14; TEMP 36.7; O2SAT 97
[2024-09-15] MEDS: buPROPion XL 150 MG TABLET PO (08:24)
[2024-09-15] MEDS: DULOXETINE HCL 20 MG CAPSULE DR 40 MG PO (08:24)
[2024-09-15] MEDS: predniSONE 20 MG TABLET 40 MG PO (08:25)
[2024-09-15] MEDS: MULTIVITAMIN/MINERALS 1 TABLET 1 TAB PO (08:25)
[2024-09-15] MEDS: SODIUM CHLORIDE 0.9 % (FLUSH) 10 ML SYRINGE 5 ML IVF ×2 (08:26→23:07)
[2024-09-15] MEDS: ACETAMINOPHEN 325 MG TABLET 650 MG PO ×3 (10:28→22:54)
[2024-09-15 10:54] VITALS: BP 164/94; PULSE 72; RESP 16; TEMP 36.8; O2SAT 98
[2024-09-15] MEDS: POTASSIUM BICARB 25 MEQ EFFERVESCENT TAB PO (10:54)
[2024-09-15 11:10] LABS: Ur HCG Qualitative* Negative (Negative)
[2024-09-15 15:03] VITALS: BP 128/80; PULSE 75; RESP 18; TEMP 36.7; O2SAT 94
--- NOTE | 2024-09-15 17:13 | PM.IMPN1 ---
Progress Note: A&P Assessment and plan (1) UTI (urinary tract infection): Problem details: - UC unremarkable Status: Acute (2) Leukocytosis: Problem details: - UTI ruled out. Leukocytosis may be secondary to steroids. With right shoulder pain, mild LFT elevation, and mild temperature elevation, I checked a right upper quadrant ultrasound which shows no evidence of cholecystitis, but there is cholelithiasis. In finding no other source of infection, but patient does have ongoing back pain. Will check MRI back to look for abscess. Continue ceftriaxone until those results are available. Status: Acute (3) Anxiety and depression: Problem details: managed by psychiatrist - continue home meds Status: Chronic (4) Chronic low back pain: Problem details: - Acute on chronic - Multilevel disc disease on lumbar CT with moderate central stenosis at L4-L5, no concerning neurologic findings, conservative management with steroids, NSAIDs, brief period of opioids - I have asked patient to get in touch with her back pain clinic and get an outpatient appointment -leukocytosis improving, but did have mild temperature elevation as well, will check MRI back to look for abscess. Status: Acute (5) Hypokalemia: Problem details: Or replacement, recheck in the morning Status: Acute (6) Cholelithiasis: Problem details: - Asymptomatic, but does have mild ALT elevation. Recommend rechecking LFTs as an outpatient with primary care provider. Also on the differential for mild LFT elevation is non alcoholic fatty liver disease. Status: Acute Time Spent With Patient Total time spent: Today I spent 40 minutes seeing the patient, reviewing [facility] and EPIC notes/diagnostics/labs, discussing the care plan with our care team that includes social work, PT/OT, pharmacy, RT, prison and documenting my impressions and plan in the medical record. Subjective Time Seen by Provider: 10:35 Date Seen: 09/15/24 Interval history: Madison is feeling much better. Back pain is less and she took a walk in the hallway yesterday evening. She is now noticing more right shoulder pain, which was also present on admission. Denies abdominal pain. Tmax noted to be 99.3F. Exam Narrative: Exam Narrative: General: No acute distress. Awake, alert, oriented x3. No pallor. No jaundice. Oropharynx: Clear. Mucous membranes moist. Cardiovascular: Regular rate and rhythm. No murmurs, gallops, or rubs. Respiratory: Clear to auscultation bilaterally. No wheezes or crackles. Abdomen: Bowel sounds present. Soft, nondistended, nontender. Extremities: No lower extremity edema. Neuro: There are no focal deficits. Moves well in the bed. Strength is 5/5 in both lower extremities. Straight leg raise is positive bilaterally, but able to raise legs slightly higher today. Const: Vital Signs, click to edit/add: Vital Signs - 24 hr 09/14/24 22:38 09/15/24 04:17 09/15/24 08:21 Temperature 98.8 F 98.1 F Pulse Rate [Left R adial] 74 74 66 Respiratory Rate 16 16 14 Blood Pressure [Le ft Arm] 147/82 H 146/90 H Blood Pressure [Ri ght Arm] 137/77 Pulse Oximetry 97 97 97 Oxygen Delivery Me thod Room Air Room Air Room Air 09/15/24 08:21 09/15/24 10:54 09/15/24 15:03 Temperature 98.2 F 98.1 F Pulse Rate [Left R adial] 66 72 75 Respiratory Rate 14 16 18 Blood Pressure [Le ft Arm] 164/94 H 128/80 Blood Pressure [Ri ght Arm] Pulse Oximetry 98 94 Oxygen Delivery Me thod Room Air Room Air 09/15/24 15:03 Temperature Pulse Rate [Left R adial] 75 Respiratory Rate 18 Blood Pressure [Le ft Arm] Blood Pressure [Ri ght Arm] Pulse Oximetry Oxygen Delivery Me thod Labs Labs: Laboratory Results - last 24 hr 09/13/24 09/15/24 09/15/24 20:24 07:43 10:46 WBC 14.13 H RBC 4.38 Hgb 12.7 Hct 39.5 MCV 90 MCH 29 MCHC 32 RDW Coeff of Alhaji 12.4 Plt Count 319 Neut % (Auto) 55.7 Lymph % (Auto) 38.4 [place] % (Auto) 5.0 Eos % (Auto) 0.4 Baso % (Auto) 0.1 Neut # (Auto) 7.90 H Lymph # (Auto) 5.40 H [place] # (Auto) 0.70 Eos # (Auto) 0.10 Baso # (Auto) 0.00 Abs Immat Gran (auto) 0.10 Imm/Tot Granulo (auto) 0.4 Sodium 139 Potassium 3.5 L Chloride 104 Carbon Dioxide 26 Anion Gap 9 BUN 17 Creatinine 0.6 Estimated Creat Clear 106.55 Estimated GFR 113 Glucose 85 Calcium 8.9 Total Bilirubin 0.2 AST 21 ALT 39 H Alkaline Phosphatase 54 Total Protein 6.6 Albumin 4.1 HCG, Qual Cancelled Urine HCG, Qual Negative Lab Acknowledgement Test Added Ordering Physician: Pam Pichardo M.D. Date of Service: 09/15/24 Procedure(s): US abdomen limited Accession Number(s): [id number] cc: Pam Pichardo M.D.; Topher CARLOS~ For Patients: As a result of the Cures Act, medical imaging exams and procedure reports are released immediately into your electronic medical record. You may view this report before your referring provider. If you have questions, please contact your health care provider. CLINICAL HISTORY: Fever right shoulder pain FINDINGS: The liver is enlarged measuring 19.9 cm. Increased echogenicity of the liver there is a normal appearance of the hepatic IVC. Ectasia of the abdominal aorta measuring 2.8 centimeters. There is no evidence of ascites. Stone in the neck of the gallbladder measuring 1.9 centimeters. The gallbladder wall measures 2 mm in thickness. The common bile duct is of normal size and measures 4 mm in diameter at the level of the [place] hepatis. The pancreas appears normal. There is no evidence of a stone or hydronephrosis within the right kidney. The right kidney measures 12.1 cm in length. Neck normal gallbladder wall probable extrarenal pelvis. IMPRESSION: 1.1.9 centimeter stone at the gallbladder. Patient is on pain medications. 2. Hepatomegaly with hepatic steatosis. Dictated by Netta Nuñez MD @ 09/15/2024 2:25:32 PM (Electronically Signed)
--- NOTE | 2024-09-15 17:36 | PC.NURSE ---
End of Shift: Patient pleasant and cooperative. Patient vitally stable, lungs clear, BS WNL, IV SL and Intact. Patient independent and rates pain at most 4/10, tylenol given once and dilauded given once. Patient was up in srinivasan walking and showered to day. Patient tolerating regular diet and urinating well.
[2024-09-15] MEDS: SENNOSIDES/DOCUSATE TABLET 1 TAB PO (18:04)
[2024-09-15] MEDS: polyethylene glycoL 3350 17 GM PACK PO (18:04)
[2024-09-15 21:21] VITALS: BP 147/79; PULSE 82; RESP 18; TEMP 36.7; O2SAT 98
[2024-09-15 22:51] VITALS: BP 131/72; PULSE 73; RESP 18; TEMP 36.8; O2SAT 96
[2024-09-15] MEDS: cefTRIAXone 2 GM in 0.9 % SODIUM CHLORIDE Mini-bag 100 ML IVPB (22:54)
[2024-09-16] MEDS: HYDROmorphone 2 MG TABLET PO ×3 (00:28→12:48)
[2024-09-16 06:07] VITALS: BP 132/88; PULSE 71; RESP 18; TEMP 36.7; O2SAT 100
[2024-09-16] MEDS: OMEPRAZOLE 20 MG CAPSULE DR PO (06:09)
--- NOTE | 2024-09-16 07:56 | PC.NURSE ---
End of shift [id number] ? Pt alert, oriented, cooperative. Up independently in room. Tolerating RA and regular diet/fluids. Reports pain in low back as 2/10 and pt reports ?feeling much better? than upon arrival. Medication given per MAR at pt request. Pt appears to be resting comfortably at end of shift with call light within reach.
[2024-09-16 09:32] VITALS: BP 130/91; PULSE 62; RESP 16; TEMP 36.6; O2SAT 94
[2024-09-16] MEDS: DULOXETINE HCL 20 MG CAPSULE DR 40 MG PO (09:34)
[2024-09-16] MEDS: MULTIVITAMIN/MINERALS 1 TABLET 1 TAB PO (09:34)
[2024-09-16] MEDS: predniSONE 20 MG TABLET 40 MG PO (09:34)
[2024-09-16] MEDS: SODIUM CHLORIDE 0.9 % (FLUSH) 10 ML SYRINGE 5 ML IVF (09:35)
[2024-09-16] MEDS: buPROPion XL 150 MG TABLET PO (09:35)
--- NOTE | 2024-09-16 11:15 | CRLHL7_ITS ---
For Patients: As a result of the Century Cures Act, medical imaging exams and procedure reports are released immediately into your electronic medical record. You may view this report before your referring provider. If you have questions, please contact your health care provider. Indication: Fever, back pain and leukocytosis questioning abscess Technique: Multiplanar, multisequence MR images of the lumbar spine were obtained before and after the administration of IV contrast. 18 cc Dotarem intravenous gadolinium Comparison: CT lumbar spine without contrast September 14, 2024 Findings: The lumbar vertebral body heights are grossly maintained. The normal lordosis is preserved without significant spondylolisthesis. There is mild degenerative disc disease with disc desiccation, height loss and disc protrusions seen at the L3-L4, L4-L5 and L5-S1 levels. The vertebral bodies have grossly preserved marrow signal intensity. The conus medullaris terminates at the T12-L1 level and is normal in signal and contour. The paraspinous soft tissues are grossly unremarkable. There is no evidence of abnormal contrast enhancement. L1-L2: No significant spinal canal stenosis or neural foraminal narrowing. L2-L3: There is a diffuse disc bulge with a small central disc protrusion. There is mild spinal canal narrowing. There is no significant neural foraminal narrowing. L3-L4: There is a diffuse disc bulge with a small central protrusion. There is mild spinal canal narrowing. There is no significant neural foraminal narrowing. L4-L5: There is a diffuse disc bulge with a central disc protrusion. There is mild spinal canal effacement with mild bilateral neural foraminal narrowing. L5-S1: Diffuse disc bulge with a small central protrusion. No significant spinal canal stenosis or neural foraminal narrowing. Impression: 1. Mild multilevel degenerative disc disease with disc desiccation, height loss and small disc protrusions worst at the L4-L5 level with [id number] spinal canal narrowing and neural foraminal narrowing. No evidence of marrow edema, enhancement or inflammatory change to suggest discitis or osteomyelitis. Dictated by Jerel Walker MD @ 09/16/2024 12:57:03 PM (Electronically Signed)
[2024-09-16 12:51] VITALS: BP 128/79; PULSE 83; RESP 18; TEMP 36.4; O2SAT 95
--- NOTE | 2024-09-16 13:57 | P.DS_ITS ---
DS: Providers Provider Time Seen by Provider: 11:00 Date Seen: 09/16/24 Date of admission: 09/14/24 00:53 Primary care physician: Topher Maldonado PA-C Admitting Clinician: Susy Valdez MD Attending Physician on discharge: Pam Pichardo MD Date of Discharge: 09/16/24 DS: Diagnosis Discharge Diagnosis (1) Chronic low back pain: Status: Acute Problem details: - Acute on chronic - Multilevel disc disease on lumbar CT with moderate central stenosis at L4-L5, no concerning neurologic findings, conservative management with steroids, NSAIDs, brief period of opioids - 09/16/24 MRI back as above, no evidence of infection - getting better, discussed tapering narcotic medications, continue NSAIDs, TENS unit, ice/heat, light activity, off work until f/u with PCP later this week (2) UTI (urinary tract infection): Status: Ruled-out Problem details: - UC unremarkable (3) Leukocytosis: Status: Acute Problem details: - UTI ruled out. Leukocytosis may be secondary to steroids. With right shoulder pain, mild LFT elevation, and mild temperature elevation, I checked a right upper quadrant ultrasound which shows no evidence of cholecystitis, but there is cholelithiasis. MRI back - no infection. Suspect leukocytosis is due to steroid use. (4) Anxiety and depression: Status: Chronic Problem details: managed by psychiatrist - continue home meds (5) Hypokalemia: Status: Acute (6) Cholelithiasis: Status: Acute Problem details: - Asymptomatic, but does have mild ALT elevation. Recommend rechecking LFTs as an outpatient with primary care provider. Also on the differential for mild LFT elevation is non alcoholic fatty liver disease. (7) Elevated LFTs: Status: Chronic (8) Hepatomegaly: Status: Acute (9) Hepatic steatosis: Status: Acute (10) Lumbar disc disease with radiculopathy: Status: Acute DS: Summary Hospital Course Hospital Course: Per H&P: Madison Chaudhari is seen as an Interactive Telehealth visit. Madison Chaudhari is a 44 year old female with PMHx significant for Nicotine dependence, chronic low back pain, GERD, HLP, Elevated LFTs, anxiety and depression who presented to the emergency department with complaints of uncontrolled back pain and abdominal pain. Patient reports she has been having right-sided flank/ back pain for 2 weeks now. She says pain initially started on September 03 more towards on the right side and she thought it was likely ovarian cyst. She says pain then got worse on September 05 and was more towards the back. She did go see chiropractor and after the visit her pain got even worse. She then went to urgent care and they prescribed her muscle relaxant. She says the pain got significantly worse and then she ended up calling 911 and went to [facility]. She reports no imaging was done at the hospital. She says she was given tramadol and oxycodone. She says she does not tolerate oxycodone well and developed headache with that. She was eventually discharged on methylprednisone. Since then she has been having persistent pain. She does complain of intermittent nausea and chills, denies any burning on urination. She says it takes me a lot of straining to urinate and thinks she may be dehydrated. However denies any burning on urination or increased urinary frequency. Denies any lower abdominal cramping pain. She explains the pain as mostly in the right flank area which then radiates to her right outer buttock/leg area. She denies any loss of bladder or bowel control. She says she did have 1 episode of urine incontinence and that was due to not being able to make it to the bathroom due to pain. She is otherwise constipated and has not had a bowel movement for few days. ROS otherwise negative for any chest pain, shortness of breath, headache or dizziness. Workup in the emergency department showed WBC 20.6, hemoglobin 14.1, hematocrit 42.7, platelets 399. BMP was unremarkable. Her AST was 29, ALT 61. UA was negative for leukocyte Estrace, negative for nitrites. Urine WBC 10-25 with few urine bacteria. Nasal swab came back negative for influenza A, B, SARS-CoV-2 and RSV. Chest x-ray showed no evidence of acute pulmonary process. CT abdomen pelvis showed no acute findings to explain patient's symptoms. Specifically no evidence of obstructive urolithiasis. Kidneys were unremarkable with no suspicious masses stones or hydronephrosis. Patient was given a dose of Rocephin in the emergency department along with pain medications. Hospitalist service was asked admit patient for further care. Please see diagnoses above for full details. Madison had improvement in back pain and was able to transition to oral narcotic medications. Urinary tract infection was ruled out and due to shoulder pain right upper quadrant ultrasound was obtained which was unremarkable. Also patient had leukocytosis and mild temperature elevation for which MRI was obtained to rule out abscess. There was no evidence of infection on MRI. Patient is discharged home in improved and stable condition today. She has already called her back pain specialist to make an appointment and has an appointment at the end of September and she is on a recall list for any cancellations. Time Spent with Patient Time attestation: Total time spent providing and/or coordinating discharge services: Today I spent 60 minutes seeing the patient, reviewing [facility] and [facility] notes/diagnostics/labs, discussing the care plan with our care team that includes social work, PT/OT, pharmacy, RT, custodial, documenting and completing discharge orders. Exam Narrative: Exam Narrative: General: No acute distress. Awake, alert, oriented. No pallor. No jaundice. Oropharynx: Clear. Mucous membranes moist. Cardiovascular: Regular rate and rhythm. No murmurs, gallops, or rubs. Respiratory: Clear to auscultation bilaterally. No wheezes or crackles. Extremities: No lower extremity edema. Const: Vital Signs, click to edit/add: Vital Signs - 24 hr 09/15/24 15:03 09/15/24 15:03 09/15/24 21:21 Temperature 98.1 F 98.0 F Pulse Rate [Left R adial] 75 75 82 Respiratory Rate 18 18 18 Blood Pressure [Le ft Arm] 128/80 Blood Pressure [Ri ght Arm] 147/79 H Pulse Oximetry 94 98 Oxygen Delivery Me thod Room Air Room Air 09/15/24 22:51 09/16/24 06:07 09/16/24 09:32 Temperature 98.2 F 98.0 F 97.8 F Pulse Rate [Left R adial] 73 71 62 Respiratory Rate 18 18 16 Blood Pressure [Le ft Arm] 131/72 132/88 130/91 H Blood Pressure [Ri ght Arm] Pulse Oximetry 96 100 94 Oxygen Delivery Me thod Room Air Room Air Room Air 09/16/24 12:51 Temperature 97.6 F Pulse Rate [Left R adial] 83 Respiratory Rate 18 Blood Pressure [Le ft Arm] Blood Pressure [Ri ght Arm] 128/79 Pulse Oximetry 95 Oxygen Delivery Ok thod Room Air DS: Data Data Completed and Pending Completed studies during hospitalization: Ordering Physician: Daniela Zuñiga M.D. Date of Service: 09/13/24 Procedure(s): CT abdomen pelvis w con Accession Number(s): [id number] cc: Daniela Zuñiga M.D.; Topher CARLOS~ For Patients: As a result of the Cures Act, medical imaging exams and procedure reports are released immediately into your electronic medical record. You may view this report before your referring provider. If you have questions, please contact your health care provider. INDICATION: Right flank pain. TECHNIQUE: CT abdomen and pelvis acquired with 98 cc Isovue 370 IV contrast. COMPARISON: None. FINDINGS: Lower chest: Unremarkable. Liver: Unremarkable. Normal in size and attenuation. No suspicious masses. Gallbladder and bile ducts: Unremarkable. No stones or inflammation. No biliary dilatation. Pancreas: Unremarkable. No mass or inflammation. Spleen: Small splenic hypodense lesion that is indeterminate but statistically favored benign (2/43). Normal in size. Adrenal glands: Unremarkable. No nodules. Kidneys: Unremarkable. No suspicious masses, stones, or hydronephrosis. GI tract: Unremarkable. Normal in caliber. No sign of mass or inflammation. Normal appendix. Vasculature: Abdominal aorta is normal in caliber. Mesenteric arteries are patent. Lymph nodes: No lymphadenopathy. Peritoneum/Abdominal Wall: Unremarkable. No sign of mass or infiltration. No free air or significant free fluid. Pelvis: Bladder is unremarkable. Intrauterine IUD. Bones: Unremarkable for age. IMPRESSION: No acute findings to explain the patient`s symptoms. Specifically, no evidence of obstructive urolithiasis. Please note that all CT scans at this facility use dose modulation, iterative reconstruction, and/or weight-based dosing when appropriate to reduce radiation dose to as low as reasonably achievable. Dictated by Jhony Brannon MD @ 09/13/2024 10:26:07 PM Ordering Physician: Daniela Zuñiga M.D. Date of Service: 09/13/24 Procedure(s): XR chest 1V portable Accession Number(s): [id number] cc: Daniela Zuñiga M.D.; Topher CARLOS For Patients: As a result of the Cures Act, medical imaging exams and procedure reports are released immediately into your electronic medical record. You may view this report before your referring provider. If you have questions, please contact your health care provider. INDICATION: Elevated white count. TECHNIQUE: Chest 1 view. COMPARISON: None. FINDINGS: Cardiovascular and mediastinum: Heart size and vasculature are normal in caliber and appearance. Lungs and pleural spaces: Lungs are clear. No pleural effusion, or pneumothorax. Bones and soft tissues: Unremarkable for age. IMPRESSION: No evidence of an acute pulmonary process. Dictated by Jeffry Noble MD @ 09/13/2024 10:50:14 PM (Electronically Signed) Ordering Physician: Susy Valdez MD Date of Service: 09/14/24 Procedure(s): CT lumbar spine wo con Accession Number(s): [id number] cc: Susy Valdez MD; Topher CARLOS~ For Patients: As a result of the Cures Act, medical imaging exams and procedure reports are released immediately into your electronic medical record. You may view this report before your referring provider. If you have questions, please contact your health care provider. INDICATION: Severe back pain, worsening, radiating to legs TECHNIQUE: CT lumbar spine without contrast. COMPARISON: None. FINDINGS: Vertebrae: Alignment is normal. There are no fractures or suspicious bony lesions. Discs and facet joints: Mild degenerative disease of the spine. -L1-L2: No significant facet arthropathy. No central or neural foraminal stenosis. -L2-L3: Mild diffuse disc bulge. Mild central stenosis. No neural foraminal stenosis. -L3-L4: Mild diffuse disc bulge. Mild central stenosis. No neural foraminal stenosis. -L4-L5: Moderate diffuse disc bulge. Moderate central stenosis. No neural foraminal stenosis. -L5-S1: Mild diffuse disc bulge. Mild central stenosis. No neural foraminal stenosis. Extraspinal findings: Prevertebral soft tissues and visualized retroperitoneum are unremarkable. IMPRESSION: Multilevel disc bulges, most severe L4-L5 with resulting moderate central stenosis. No acute fracture. Please note that all CT scans at this facility use dose modulation, iterative reconstruction, and/or weight-based dosing when appropriate to reduce radiation dose to as low as reasonably achievable. Dictated by Radha Pavon MD @ 09/14/2024 9:40:51 AM (Electronically Signed) Ordering Physician: Pam Pichardo M.D. Date of Service: 09/15/24 Procedure(s): US abdomen limited Accession Number(s): [id number] cc: Pam Pichardo M.D.; Topher CARLOS For Patients: As a result of the Cures Act, medical imaging exams and procedure reports are released immediately into your electronic medical record. You may view this report before your referring provider. If you have questions, please contact your health care provider. CLINICAL HISTORY: Fever right shoulder pain FINDINGS: The liver is enlarged measuring 19.9 cm. Increased echogenicity of the liver there is a normal appearance of the hepatic IVC. Ectasia of the abdominal aorta measuring 2.8 centimeters. There is no evidence of ascites. Stone in the neck of the gallbladder measuring 1.9 centimeters. The gallbladder wall measures 2 mm in thickness. The common bile duct is of normal size and measures 4 mm in diameter at the level of the [place] hepatis. The pancreas appears normal. There is no evidence of a stone or hydronephrosis within the right kidney. The right kidney measures 12.1 cm in length. Neck normal gallbladder wall probable extrarenal pelvis. IMPRESSION: 1.1.9 centimeter stone at the gallbladder. Patient is on pain medications. 2. Hepatomegaly with hepatic steatosis. Dictated by Netta Nuñez MD @ 09/15/2024 2:25:32 PM (Electronically Signed) Ordering Physician: Pam Pichardo M.D. Date of Service: 09/16/24 Procedure(s): MR lumbar spine wo/w con Accession Number(s): [id number] cc: Pam Pichardo M.D.; Topher CARLOS For Patients: As a result of the Cures Act, medical imaging exams and procedure reports are released immediately into your electronic medical record. You may view this report before your referring provider. If you have questions, please contact your health care provider. Indication: Fever, back pain and leukocytosis questioning abscess Technique: Multiplanar, multisequence MR images of the lumbar spine were obtained before and after the administration of IV contrast. 18 cc Dotarem intravenous gadolinium Comparison: CT lumbar spine without contrast September 14, 2024 Findings: The lumbar vertebral body heights are grossly maintained. The normal lordosis is preserved without significant spondylolisthesis. There is mild degenerative disc disease with disc desiccation, height loss and disc protrusions seen at the L3-L4, L4-L5 and L5-S1 levels. The vertebral bodies have grossly preserved marrow signal intensity. The conus medullaris terminates at the T12-L1 level and is normal in signal and contour. The paraspinous soft tissues are grossly unremarkable. There is no evidence of abnormal contrast enhancement. L1-L2: No significant spinal canal stenosis or neural foraminal narrowing. L2-L3: There is a diffuse disc bulge with a small central disc protrusion. There is mild spinal canal narrowing. There is no significant neural foraminal narrowing. L3-L4: There is a diffuse disc bulge with a small central protrusion. There is mild spinal canal narrowing. There is no significant neural foraminal narrowing. L4-L5: There is a diffuse disc bulge with a central disc protrusion. There is mild spinal canal effacement with mild bilateral neural foraminal narrowing. L5-S1: Diffuse disc bulge with a small central protrusion. No significant spinal canal stenosis or neural foraminal narrowing. Impression: 1. Mild multilevel degenerative disc disease with disc desiccation, height loss and small disc protrusions worst at the L4-L5 level with [id number] spinal canal narrowing and neural foraminal narrowing. No evidence of marrow edema, enhancement or inflammatory change to suggest discitis or osteomyelitis. Dictated by Jerel Walker MD @ 09/16/2024 12:57:03 PM (Electronically Signed) Labs on day of discharge: Preliminary micro results at discharge 09/13/24 21:00 Blood Culture - Preliminary Blood NO GROWTH AFTER 48 HOURS Discharge Plan Discharge Disposition: Home, Self-Care Date of Admission: 09/14/24 00:53 Attending Provider on Discharge: Pam Pichardo Primary Care Provider: Topher Maldonado Condition: Improved Anticipated Discharge Date/Time: 09/16/24 13:23 Discharge Medications: New acetaminophen 325 mg Tablet 650 mg PO Q6H PRN (Reason: pain, headache, fever) Qty: 100 0RF hydromorphone 2 mg Tablet 2 mg PO Q6H PRN (Reason: Pain) Qty: 20 0RF Continued bupropion HCl 150 mg tablet extended release 24 hr 150 mg PO QAM gabapentin 100 mg capsule 100 - 300 mg PO TID PRN clonazepam 0.5 mg tablet 0.5 mg PO HS PRN meloxicam 15 mg tablet 15 mg PO DAILY multivitamin [Daily Multi-Vitamin] Tablet 1 tab PO QAM omeprazole 20 mg capsule,delayed release(DR/EC) 20 mg PO DAILY duloxetine 20 mg capsule,delayed release(DR/EC) 40 mg PO DAILY Zepbound 5 mg/0.5 mL pen injector 5 mg subcut QWEEK Qty: 2 2RF Patient Comments: hasn't started yet Discontinued methylprednisolone 4 mg tablets,dose pack 4 mg PO Q6H Patient Comments: [NO ORIGINAL SIG] Rx Instructions: TAKE DIRECTED ON PACKAGE Discharge Orders: Discharge Order (Routine); Ordered 09/16/24 Ordered By: Pam Pichardo Patient Education: Acetaminophen (By mouth), Hydromorphone (By mouth), Back Pain (GEN) Additional Instructions: No driving or alcohol while using narcotic medications F/u with back pain specialist as soon as you are able to get in Activity Level: Activity as Tolerated Discharge Diet: Regular Follow Up Appointments: Topher Maldonado PA-C [Primary Care Provider] - 09/19/24 10:30 am ([facility] for follow-up.) Forms: Work/School Release, [facility] Info Instructions
== END 2024-09-16 14:28 | disposition home or self-care (01) ==
LOC: ED 21:36 → MEDSURG 09-14 00:54
PROVIDERS: Family Medicine; Admitting Provider Internal Medicine; Emergency Provider Family Medicine; PCP Physician Assistant Medical; Visit Provider Internal Medicine
DX: K80.20 Calculus of gallbladder without cholecystitis without obstruction (principal); G89.29 Other chronic pain; M51.16 Intervertebral disc disorders with radiculopathy, lumbar region; M54.50 Low back pain, unspecified; D72.829 Elevated white blood cell count, unspecified; R79.89 Other specified abnormal findings of blood chemistry; E78.5 Hyperlipidemia, unspecified; E87.6 Hypokalemia; R16.0 Hepatomegaly, not elsewhere classified; K76.0 Fatty (change of) liver, not elsewhere classified; K21.9 Gastro-esophageal reflux disease without esophagitis; E66.9 Obesity, unspecified; Z68.33 Body mass index [BMI] 33.0-33.9, adult; F17.200 Nicotine dependence, unspecified, uncomplicated; F41.9 Anxiety disorder, unspecified; F32.A Depression, unspecified
CPT/HCPCS: 36415; 71045; 72131; 72158; 74177; 76705; 80053; 81001; 81025; 84703; 85025; 86140; 87040; 87086; 87631; 94761; 96361; 96365; 96366; 96375; 96376; 99284; 99285; A9153; A9270; A9575; G0378; J0696; J1171; J1650; J1885; J2270; J2405; J7030; J7512; Q9967

== ENCOUNTER 2024-09-21 15:08 | Emergency (ER) | payer BC, SELFPAY ==
--- OUTSIDE RECORDS SUMMARY | 2024-09-21 15:11 | XMS_ITS | Encounter Summary ---
Author Organization [place] Address [facility] [place] [address] Care Team Providers Care Surgical Elastic Knitter Name Role Phone Jarde Murillo MD Unavailable Jared Murillo MD Primary Care Provider [phone] Sabina Lowery MD Unavailable + Jeffry Naqvi DPM Unavailable Marc ConnC Unavailable [phone] Sabina Lowery MD Unavailable + Nithin Abbott MD Unavailable [phone] Marc ConnC Unavailable [place] Suzette Ro CNGlenys Unavailable Sabina Lowery MD Unavailable + Marc Conn PA-C Unavailable [phone] Sabina Lowery MD Unavailable + Aniket Curiel MD Unavailable Jared Murillo MD Unavailable Encounter Details Date Type Department Care Team (Late st Contact Info) Description 03/06/2020 Telephone [facility] Behavioral Health Intake [address] [place] [address] Generic, Behavioral MD Jerardo Social History Tobacco [...] and Family Once a week 09/05/2019 Attends [employer] Never 09/05 Active Member of Clubs [...] Answer Date Recorded PHQ-2 Score 3 02/03/2020 [facility] of Occupat ional Health - Occupational [...] Master's degree (e.g., MA, MS, Hola, MEd, INSURANCE OPERATIONS REP, [place]ASMANY) 09/05/2019 Comments No Sex and Gender Information Value Date Recorded Sex Assigned at Female 11/08/2021 8:44 PM CDT Legal 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 Gender Identity Female 11/08/2021 8:44 PM [...] documented as of this encounter Care Teams Surgical Elastic Knitter Relationship Specialty [place] [address] [address] [address] PCP - General Family Practice 12/25/18 [place] [address] [address] [address] Assigned PCP 07/26/18 03/07/20 Sabina Lowery MD [place] [address] [place] [address] [address] [place] [address] Assigned PCP 03/08/20 12/23/20 Jeffry Naqvi DPM [address] [facility] [address] [place] [address] Assigned Musculoskeletal Provider 05/22/20 11/21/20 Marc Conn PA-C [address] [place] [address] Assigned PCP 12/24/20 08/07/21 Sabina Lowery MD [facility] [address] [place] [address] Assigned PCP 08/08/21 12/24/21 Nithin Abbott MD [address] [facility] [address] [place] [address] Assigned OBGYN Provider 12/25/2105/20 Marc Conn PA-C [address] [place] [address] Assigned PCP 12/25/21 06/10/22 Suzette Hough CNM [address] [place] [address] Assigned OBGYN Provider 05/21/22 Sabina Lowery MD [facility] [address] [facility] [address] [place] [address] Assigned PCP 06/11/22 07/15/22 Marc Conn PA-C [address] [place] [address] Assigned PCP 07/16/22 09/23/22 Sabina Lowery MD [address] [place] [address] Assigned PCP 09/24/22 12/23/22 Aniket Curiel MD [address], [place] [address] Assigned PCP 12/24/22 02/19/24 [place] [address] [place] [address] Assigned PCP 02/20/24 documented as of this encounter
--- OUTSIDE RECORDS SUMMARY | 2024-09-21 15:11 | XMS_ITS | Encounter Summary ---
Author Organization [place] Address [facility] [place] [address] Care Team Providers Care Assistant Golf Coach Name Role Phone Jared Murillo MD Primary Care Provider [phone] Sabina Lowery MD Unavailable + Nithin Abbott MD Unavailable [phone] Marc Conn PA-C Unavailable [phone] Suzette Hough [facility] Unavailable [phone] Sabina Lowery MD Unavailable + Marc Conn PA-C Unavailable [phone] Sabina Lowery MD Unavailable + Aniket Curiel MD Unavailable [phone] Jared Murillo MD Unavailable Encounter Details Date Type Department Care Team (Late st Contact Info) Description 11/08/2021 MyC Medical Advice [address] [address] Chadwick Rosado Social History Tobacco [...] and Family Once a week 09/05/2019 Attends [employer] Services Never 09/05 Active Member of Clubs [...] Answer Date Recorded PHQ-2 Score 2 12/04/2020 [facility] of Occupat ional Health - Occupational Stress [...] Master's degree (e.g., MA, MS, Hola, MEd, MACHINE COREMAKER, YASMANY) 09/05/2019 Comments No Sex and Gender Information Value Date Recorded Sex Assigned at Female 11/08/2021 8:44 PM CDT Legal Sex Female 4:39 AM BIRD CAGE ASSEMBLER Gender Identity Female 11/08/2021 8:44 PM CDT Sexual Orientation Straight 11/08/2021 8: 44 PM CDT documented as of this encounter Plan of Treatment Not on file documented as of this encounter Visit Diagnoses Not on filedocumented in this encounter Additional Health Concerns Assessment Noted Time PHQ-9 Depression Total Score: 13 020 7:03 AM BIRD CAGE ASSEMBLER documented as of this encounter Care Teams Assistant Golf Coach Relationship Specialty Start Date End Date Jared Murillo MD PCP - General Family Practice 12/25/18 Sabina Lowery MD [place] [address] [place] [address] Assigned PCP 08/08/21 12/24/21 Nithin Abbott MD [address] [facility] [address] [place] [address] Assigned OBGYN Provider 12/25/2105/20 Marc Conn PA-C [address] [place] [address] Assigned PCP 12/25/21 06/10/22 Suzette Hough CNM [address] [address] [place] [address] Assigned OBGYN Provider 05/21/22 Sabina Lowery MD [place] [address] [place] [address] Assigned PCP 06/11/22 07/15/22 Marc Conn PA-C [address] [place] [address] Assigned PCP 07/16/22 09/23/22 Sabina Lowery MD [address] [place] [address] Assigned PCP 09/24/22 12/23/22 Aniket Curiel MD [address] [address] Assigned PCP 12/24/22 02/19/24 [place] [address] [place] [address] Assigned PCP 02/20/24 documented as of this encounter
--- OUTSIDE RECORDS SUMMARY | 2024-09-21 15:11 | XMS_ITS | Encounter Summary ---
Author Organization [place] Address [facility] [place] [address] Care Team Providers Care Metal Fabricator Apprentice Name Role Phone Jared Murillo MD Primary Care Provider [phone] Marc Conn PA-C Unavailable [phone] Sabina Lowery MD Unavailable + Nithin Abbott MD Unavailable [phone] Marc Conn PA-C Unavailable [phone] Suzette Hough [employer] Unavailable Sabina Lowery MD Unavailable + Marc Conn PA-C Unavailable [phone] Sabina Lowery MD Unavailable + Aniket Curiel MD Unavailable Jared Murillo MD Unavailable Encounter Details Date Type Department Care Team (Late st Contact Info) Description 05/20/2021 [facility] Advice [address] [phone] Savannah Costello Social History Tobacco Use Types [...] and Family Once a week 09/05/2019 Attends Jain Services Never 09/05 Active Member of Clubs [...] Answer Date Recorded PHQ-2 Score 2 12/04/2020 [facility] Occupat ional Health - Occupational Stress [...] Master's degree (e.g., MA, MS, Hola, MEd, SAXOPHONE ASSEMBLER, YASMANY) 09/05/2019 Comments No Sex and Gender Information Value Date Recorded Sex Assigned at Female 11/08/2021 8:44 PM CDT Legal Sex Female 4:39 AM FEDERAL DISTRICT CLERK Gender Identity Female 11/08/2021 8:44 PM CDT Sexual Orientation Straight 11/08/2021 8: 44 PM CDT documented as of this encounter Plan of Treatment Not on file documented as of this encounter Visit Diagnoses Not on filedocumented in this encounter Additional Health Concerns Assessment Noted Time PHQ-9 Depression Total Score: 13 020 7:03 AM FEDERAL DISTRICT CLERK documented as of this encounter Care Teams Metal Fabricator Apprentice Relationship Specialty Start Date End Date Jared Murillo MD PCP - General Family Practice 12/25/18 Marc Conn PA-C [address] [place] [address] Assigned PCP 12/24/20 08/07/21 Sabina Lowery MD [place] [address] [place] [address] [id number] Assigned PCP 08/08/21 12/24/21 Nithin Abbott MD [address] [facility] [address] [place] [address] Assigned OBGYN Provider 12/25/2105/20 Marc Conn PA-C [address] [place] [address] [id number] Assigned PCP 12/25/21 06/10/22 Suzetet Hough CNM [address] [place] [address] 700 [place], [place] [address] Assigned OBGYN Provider 05/21/22 Sabina Lowery MD [place]ISE [address] [place] [address] [address] [place] [address] Assigned PCP 06/11/22 07/15/22 Marc Conn PA-C [address] [place] [address] Assigned PCP 07/16/22 09/23/22 Sabina Lowery MD [address] [facility] 700 [place] [address] Assigned PCP 09/24/22 12/23/22 Aniket Curiel MD [address] [place] [address] Assigned PCP 12/24/22 02/19/24 [place] [address] [place] [address] Assigned PCP 02/20/24 documented as of this encounter
--- OUTSIDE RECORDS SUMMARY | 2024-09-21 15:11 | XMS_ITS | Clinical Summary ---
Author Organization [place] Address [facility] [place] [address] Care Team Providers Care Senior Oracle Pl Sql Developer Name Role Phone Jared Murillo MD Primary Care Provider [phone] Jared Murillo MD Unavailable Allergies No known [...] Name Administration Dates Next Due COVID-19 Vaccine (Zamzee) 10/03/2020 Hepatitis A (ADULT 19+) 11/22/2017,05/15/2015 Hepatitis [...] and Family Once a week 09/05/2019 Attends Judaism Services Never 09/05 Active Member of Clubs [...] Answer Date Recorded PHQ-2 Score 1 01/15/2024 [facility] of Occupat ional Health - Occupational [...] Master's degree (e.g., MA, MS, Hola, MEd, PAYROLL OFFICER, YASMANY) 09/05/2019 Comments No Sex and Gender Information Value Date Recorded Sex Assigned at Female 11/08/2021 8:44 PM CDT Legal Sex Female 4:39 AM CASH PERSON Gender Identity Female 11/08/2021 8:44 PM CDT [...] DIRECT LDL PANEL Routine 08/20/2018 11:15 AM CASH PERSON Routine general medical examination at a health [...] component of this testing was completed at [facility] 12/21/2021 1:20 PM CDT [facility] Brushing CERVIX UTERI STRUCTURE / Unknown 12/17/2021 3:39 PM CDT 12/17/2021 4:17 PM CDT us Nithin MORE - FRANCISCA AP Final Result [facility] Specialty Lab [address] [facility], [address] [place] [address], [facility] [phone] * HPV High Risk Types DNA Cervical (12/17/2021 3:39 PM CDT) Other HR HPV Negative Negative 12/23/2021 7:05 AM CDT [facility] HPV16 DNA Negative Negative 12/23/2021 7:05 AM CDT [facility] HPV18 DNA Negative Negative 12/23/2021 7:05 AM CDT [facility] FINAL DIAGNOSIS This patient's sample is negative for HPV DNA. This test was developed and its performance characteristics determined by the [facility], [facility] Diagnostics Laboratory. It has not [...] [facility] [address] [facility], [address] [address], [facility] [phone] * Basic metabolic panel (05/10/2020 8:46 PM CDT) Sodium 138 133 - 144 mmol/L 05/10/2020 9:14 PM CDT [facility] Potassium 3.7 3.4 - 5.3 mmol/L 05/10/2020 9:14 PM [facility] Chloride 106 94 - 109 mmol/L 05/10/2020 9:14 PM T [facility] Carbon Dioxide 26 20 - 32 mmol/L 05/10/2020 9:22 PM T [facility] Anion Gap 6 3 - 14 mmol/L 05/10/2020 9:22 PM [facility] Glucose 91 70 - 99 mg/dL 05/10/2020 9:22 PM [facility] Urea Nitrogen 12 7 - 30 mg/dL 05/10/2020 9:22 PM [facility] Creatinine 0.77 0.52 - 1.04 mg/dL 05/10/2020 9:22 PM T [facility] GFR Estimate >90 >60 mL/min/{1. 73_m2} 05/10/2020 9:22 PM T [facility] Comment: Non GFR Calc Starting 07/17/2018, serum creatinine based estimated GFR (eGFR) will be calculated using the Chronic Kidney Disease Epidemiology Collaboration (CKD-EPI) equation. GFR Estimate If Black >90 >60 mL/min/{1. 73_m2} 05/10/2020 9:22 PM T [facility] Comment: GFR Calc Starting 07/17/2018, serum creatinine based estimated GFR (eGFR) will be calculated using the Chronic Kidney Disease Epidemiology Collaboration (CKD-EPI) equation. Calcium 9.0 8.5 - 10.1 mg/dL 05/10/2020 9:22 PM CDT [facility] Blood specimen (specimen) 05/10/2020 8:46 PM CDT 05/10/2020 8:47 PM CDT us Ken Lino MD LAB - BLOOD ORDERABLES Final R esult [facility] [address] [place] [address], [facility] [phone] [facility] [address] [place] [address], [facility] [phone] * (ABNORMAL) Lipid panel reflex to direct LDL Fasting (08/20/2018 11:15 AM CASH PERSON) Cholesterol 243(H) <200 mg/dL 08/21/2018 8:04 AM CASH PERSON [facility] Comment:Desirable: <200 mg/ dl Triglycerides 249(H) <150 mg/dL 08/21/2018 8:04 AM CASH PERSON [facility] Comment: Borderline high: 150-199 mg/dl High: 200-499 mg/dl Very high: >499 mg/dl Fasting specimen HDL Cholesterol 48(L) >49 mg/dL 9 8:05 AM CASH PERSON [facility] LDL Cholesterol Calculated 145(H) <100 mg/dL 08/21/2018 8:05 AM CASH PERSON [facility] Comment: Above desirable: 100-129 mg/dl Borderline High: 130-159 mg/dL High: 160-189 mg/dL Very high: >189 mg/dl Non HDL Cholesterol 195(H) <130 mg/dL 08/21/2018 8:05 AM CASH PERSON [facility] Comment: Above Desirable: 130-159 mg/dl Borderline high: 160-189 mg/dl High: 190-219 mg/dl Very high: >219 mg/dl Blood specimen (specimen) 08/20/2018 11:15 AM CASH PERSON 08/20/2018 11:16 AM CASH PERSON us Jared Murillo MD LAB - BLOOD ORDERABLES Final Res ult [facility] [address] [place] [address] from Last 3 Months or Most Recently Relevant to Health Maintenance [place] [facility] Care Teams Senior Oracle Pl Sql Developer Relationship Specialty Start Date End Date Jared Murillo MD PCP - General Family Practice 12/25/18 [place] [address] [place] [address] Assigned PCP 02/20/24
--- OUTSIDE RECORDS SUMMARY | 2024-09-21 15:11 | XMS_ITS | Encounter Summary ---
Author Organization [place] Address [facility] [place] [address] Care Team Providers Care Financial Institution Manager Name Role Phone Jared Murillo MD Primary Care Provider Marc Conn PA-C Unavailable [phone] Sabina Lowery MD Unavailable + iNthin Abbott MD Unavailable [phone] Marc Conn PA-C Unavailable [phone] Suzette Hough [facility] Unavailable Sabina Lowery MD Unavailable + Marc Conn PA-C Unavailable [phone] Sabina Lowery MD Unavailable + Aniket Curiel MD Unavailable [phone] Jared Murillo MD Unavailable Reason for Visit * Reason Comments Medication Refill Encounter Details Date Type Department Care Team (Late st Contact Info) Description 06/24/[address] [phone] Sabina Lowery MD [facility] [address] [address] Medication Refill Social History Tobacco [...] Answer Date Recorded PHQ-2 Score 2 12/04/2020 [facility] of Occupat ional Health - [...] Master's degree (e.g., MA, MS, Hola, MEd, WAXING MACHINE OPERATOR, YASMANY) 09/05/2019 Comments No Sex and Gender Information Value Date Recorded Sex Assigned at Female 11/08/2021 8:44 PM CDT Legal Sex Female 4:39 AM CALL CENTER DISPATCHER Gender Identity Female 11/08/2021 8:44 PM CDT Sexual Orientation Straight 11/08/2021 8: 44 PM CDT documented as of this encounter Miscellaneous Notes * Telephone Encounter - Nichol Mendoza RN - 06/25/2021 11:34 AM CST Prescription approved per [facility] Refill Protocol. For one time needs PX Nichol Mendoza RN CENTER DISPATCHER documented in this encounter Plan of Treatment Not on file documented as of this encounter Visit Diagnoses Diagnosis General counseling for prescription of oral contraceptives documented in this encounter Additional Health Concerns Assessment Noted Time PHQ-9 Depression Total Score: 13 020 7:03 AM CALL CENTER DISPATCHER documented as of this encounter Care Teams Financial Institution Manager Relationship Specialty Start Date End Date Jared Murillo MD PCP - General Family Practice 12/25/18 Marc Conn PA-C [address] [place] [address] Assigned PCP 12/24/20 08/07/21 Sabina Lowery MD [facility] [address] [place] [address] Assigned PCP 08/08/21 12/24/21 Nithin Abbott MD [address] [address] [place] [address] Assigned OBGYN Provider 12/25/2105/20 Marc Conn PA-C [facility] [address] [address] Assigned PCP 12/25/21 06/10/22 Suzette Hough CNM [address] [place] [address] Assigned OBGYN Provider 05/21/22 Sabina Lowery MD [address] [place] [address] Assigned PCP 06/11/22 07/15/22 Marc Conn PA-C [facility] [address] [address] Assigned PCP 07/16/22 09/23/22 Sabina Lowery MD [address] [place] [address] Assigned PCP 09/24/22 12/23/22 Aniket Curiel MD [address] [place] [address] Assigned PCP 12/24/22 02/19/24 [place] [address] [address] [place] [address] Assigned PCP 02/20/24 documented as of this encounter
--- OUTSIDE RECORDS SUMMARY | 2024-09-21 15:11 | XMS_ITS | Encounter Summary ---
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 file Not on file Not on file documented as of this encounter Last Filed Vital Signs Vital Sign Reading Time Taken Comments Blood Pressure 140/74 09/12/2024 12:28 AM UNIT REACTOR OPERATOR Pulse 93 09/12/2024 12:28 AM UNIT REACTOR OPERATOR Temperature 36.1 C (96.9 F) 09/12/2024 12:28 AM UNIT REACTOR OPERATOR Respiratory Rate 18 09/12/2024 12:28 AM UNIT REACTOR OPERATOR Oxygen Saturation 98% 09/12/2024 12:28 AM UNIT REACTOR OPERATOR Inhaled Oxygen Concentration - - Weight - [...] Veronica Jaquez MD - 09/12/2024 2:23 AM UNIT REACTOR OPERATOR You were seen in the emergency department [...] next week for recheck and ongoing management. REACTOR OPERATOR REACTOR OPERATOR documented in this encounter Medications at Time [...] package directions 21 Tablet 09/12/2024 2:50 AM UNIT REACTOR OPERATOR 09/12/2024 multivitamin, stress formula (VITAMIN B COMPLX WITH C) Take 1 Tablet by mouth daily. [place]-3 Fatty Acids (FISH OIL) 1000 MG capsule Take 2 Capsules (2,000 mg) by mouth. oxyCODONE-acetam inophen (PERCOCET) 5-325 MG tablet Take 1 Tablet by mouth. 01/09/2024 tretinoin (RETIN-A) 0.025 % cream Apply topically daily at bedtime. 12/19/2023 documented as of this encounter ED Notes * Veronica Jaquez MD - 09/12/2024 3:08 AM CST [facility] Emergency Medicine Visit Note Chief Complaint: Back [...] worsening after she was on a cruise. [place] like the pain was much worse yesterday, [...] visit, and supervised patient care with the registered sales assistant. MDM: 44 year old F with known [...] Acute bilateral low back pain without sciatica REACTOR OPERATOR * Jameson Aranda RN - 09/12/2024 2:40 AM CST [facility] ED Nursing Discharge Note Arrival Information: Patient [...] Legal Status Orders (From admission, onward) None REACTOR OPERATOR documented in this encounter Plan of Treatment Upcoming Encounters Date Type Department Care Team (Late st Contact Info) Description 10/17/2024 9:00 AM CDT Appointment [facility] [address] [place] [address] [place] [address] [address] [place] Cavazos [phone] documented as of this encounter Visit Diagnoses Diagnosis Acute bilateral low back pain without sciatica- Primary * Triage Assessment Note - Jameson Aranda RN - 09/12/2024 12:33 AM UNIT REACTOR OPERATOR Patient arrived by [facility] from Home with chief complaint: Back pain Symptoms/background (EMS narrative): pt diagnosed with bulging disc in December 2023. Today pt was getting out of car, developed acute back pain from lower thoracic area down thru R hip and referred to [facility]. Pt seen in clinic today, given muscle relaxer, went to chiropractor for adjustment, pain became a lot worse afterwards. 05/09 pain Interventions/abnormal vitals: WNL Additional patient report (what else the nurse finds out): Pt took 1500mg Tylenol PRIVACY SPECIALIST REACTOR OPERATOR documented in this encounter Administered Medications Inactive Administered Medications - up to 3 most recent administrations Medication Order MAR Action Action Date Dose Rate Site ketorolac (TORADOL) injection 15 mg 15 mg, Intramuscular, ONCE, On Jayna 09/12/24 at 0100, For 1 dose Given 09/12/2024 1:02 AM UNIT REACTOR OPERATOR 15 mg Right Deltoid lidocaine (ASPERCREAM) 4 % patch 1 Patch 1 Patch, Transdermal, ONCE, On Jayna 09/12/24 at 0045, For 1 dose, Apply patch to back. Patch may remain in place for up to 12 hours in any 24 hour period, i.e. patches placed at 0800 should be removed at 2000. May cut patch to appropriate size. Patch Applied 09/12/2024 1:03 AM UNIT REACTOR OPERATOR 1 Patch Back oxyCODONE (ROXICODONE) immediate release tablet 5 mg 5 mg, Oral, ONCE, On Jayna 09/12/24 at 0100, For 1 dose Given 09/12/2024 1:10 AM UNIT REACTOR OPERATOR 5 mg documented in this encounter Active and Recently Administered Medications Times are shown in UNIT REACTOR OPERATOR. Scheduled Medication Order 09/10/2024 09/11/2024 09/12/2024 ketorolac [...] size. 0103 (Patch Applied - Provider: Jameson Aranda RN)1303 (Due: Patch Removed - Provider: Jameson Aranda RN) oxyCODONE (ROXICODONE) immediate release tablet 5 mg (COMPLETED) 5 mg, Oral, ONCE, On Jayna 09/12/24 at 0100, For 1 dose 0110 (Given - Provid er: Jameson Aranda RN) documented in this encounter Care Teams Attendant Honor Bar Relationship Specialty Start Date End Date Shila Dsouza PA-C [address] [place] [address] PCP - General Physician Sql Analyst 02/14/17 documented as of this encounter
--- OUTSIDE RECORDS SUMMARY | 2024-09-21 15:11 | XMS_ITS | Clinical Summary ---
Author Organization [employer] Address [address] [place] [address] Care Team Providers Care Load Out Worker Name Role Phone Shila Dsouza PA-C Primary Care Provider Source Comments You are receiving this document as you are listed as the primary care provider,follow-up provider, or the patient has been referred to you for consultation.This is in compliance with the Medicare and[facility] EHR Incentive Program,which states Providers who transition their patient to another setting of careor provider of care or refers their patient to another provider of care shouldprovide summary care record for each transition of care or referral. [facility] Allergies No known active allergies Medications * [...] Take 1 Tablet by mouth daily. Active [place]-3 Fatty Acids (FISH OIL) 1000 MG capsule [...] package directions 21 Tablet 5 2:50 AM HOOKER MACHINE TENDER 09/12/19 25 Active Meloxicam (MOBIC) 15 MG [...] eye exam by Dr. Fareed Crespo at [facility] on 11/29/17. Low back pain 07/08/2016 [...] Department Care Team Description 09/12/2024 12:26 AM HOOKER MACHINE TENDER - 09/12/2024 3:08 AM HOOKER MACHINE TENDER Emergency [facility] [address] [place] [address] Delores Harmon MD Acute bilateral low back pain without sciatica (Primary Dx) Discharge Disposition: Home 09/11/2024 7:50 PM HOOKER MACHINE TENDER Office Visit [facility] [address] [address] [address] [place] [phone] Madi Pal MD Chronic bilateral low back pain without sciatica (Primary Dx) 08/27/2024 Refill [facility] [address] [place] [address] Morris Blackman MD Refill from Last 3 Months Immunizations Immunization Administration Dates Next Due DTP 03/28/1985 Flu Vac Preserv Free (3+yrs) 06/04/2012,05/31/20 07 HepA Adult (19+ yrs) 11/22/2017,05/15/2015 HepB Adult (Engerix-B, 20+ y rs, 3 dose series) 05/28/1997,08/15/1994,06/13/1994 Influenza IIV4 (Quadrivalent ) 0.5mL (59262) 07/13/2017,06/03/2016,05/14/2015,2012 MMR 02/28/1992 OPV, Trivalent (Orimune or [...] Maternal Grandfather Relation Name Status Comments Father [place] Mother (Age 56) bone cance r Brother [...] 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 Not on file Not on file Last Filed Vital Signs Vital Sign Reading Time Taken Comments Blood Pressure 140/74 09/12/2024 12:28 AM HOOKER MACHINE TENDER Pulse 93 09/12/2024 12:28 AM HOOKER MACHINE TENDER Temperature 36.1 C (96.9 F) 09/12/2024 12:28 AM HOOKER MACHINE TENDER Respiratory Rate 18 09/12/2024 12:28 AM HOOKER MACHINE TENDER Oxygen Saturation 98% 09/12/2024 12:28 AM HOOKER MACHINE TENDER Inhaled Oxygen Concentration - - Weight 89.8 kg (198 lb) 09/11/2024 7:53 PM HOOKER MACHINE TENDER Height 165.1 cm (5' 5) 09/11/2024 7:53 PM HOOKER MACHINE TENDER Body Mass Index 32.95 09/11/2024 7:53 PM HOOKER MACHINE TENDER Plan of Treatment Upcoming Encounters Date Type Department Care Team (Late st Contact Info) Description 10/17/2024 9:00 AM CDT Appointment [facility] [address] [place], [place] [address] [place] [address] [place]azos [address] Health Maintenance Due Date Last Done Comments Colon Cancer Screening Plan Due 1979 Hep C Screening (Preventive Services) 1979 IPV (Polio) (2 of 3 - 4-dose series) 12/20/1984 11/22/1984, 11/22/1984 HIV Screening (Preventive Services) 1995 Adult Preventive Visit 1997 Cervical Cancer Screening 10/09/20202017 (Completed), 07/18/2007, 03/09/2001, Additional history exists DTaP/Tdap/Td (5 - Tdap) 01/08/2021 01/09/20, 07/18/2007, 06/13/1994, Additional history exists Diabetes Screening- [...] PATH LIQUID BASED Routine 07/18/2007 7:15 AM HOOKER MACHINE TENDER from Last 3 Months or Most Recently Relevant to Health Maintenance Results * (ABNORMAL) Lipid Panel and Direct LDL (If Needed) (01/20/2020 12:02 PM CDT) Cholesterol 239(H) 0 - 199 mg/dL 01/20/2020 12:28 PM [facility] Triglyceride 206(H) <=149 mg/dL 01/20/2020 12:28 PM T [facility] HDL Cholesterol 43 >=40 mg/dL 0 12:28 PM [facility] LDL, Calculated 155(H) <130 mg/dL 0 12:28 PM [facility] Non HDL Chol, Calculated 196 mg/dL 01/20/2020 12:28 PM [facility] Cholesterol/HDL Ratio 5.6 01/20/2020 12:28 PM [facility] Hours Fasting 16 01/20/2020 12:28 PM T [facility] Blood Venipuncture / Unknown 01/20/2020 12:02 PM CDT 01/20/2020 12:02 PM CDT us Aziza Pickard MUSEUM SERVICE SCHEDULER, CLAMP TRUCK DRIVER LAB_1 Final Result [facility] [address] [place] [address], [facility] [phone] * Pap Smear (07/18/2007 7:15 AM HOOKER MACHINE TENDER) PAP Smear Liquid Based SEE TEXT No normal range HP CONVERSION Comment: Patient: MADISON CHAUDHARI CERVICAL CYTOLOGY REPORT Pathology # [id number] Date Obtained: Date Received: CYTOLOGIC IMPRESSION: Negative for intraepithelial lesion or malignancy. Verified 07/23/07 by: SL (electronic signature) ADDITIONAL DATA LMP: CLINICAL HIST LIQUID BASED PAP CERVICAL SPECIMEN ADEQUACY: Satisfactory. ENDOCERVICAL CELLS: Present. 07/18/2007 7:15 AM HOOKER MACHINE TENDER Ila Masterson MD LAB_1 Final R esult HP CONVERSION from Last 3 Months or Most Recently Relevant to Health Maintenance Insurance [employer] [facility] BLUE LINK Care Teams Load Out Worker Relationship Specialty Start Date End Date Shila Dsouza PAClaudeC [address] [place] [address] PCP - General Physician Resource Room Special Education Teacher 02/14/17
--- OUTSIDE RECORDS SUMMARY | 2024-09-21 15:11 | XMS_ITS | Encounter Summary ---
Author Organization [employer] Address [address] [place] [address] Care Team Providers Care Manager Mountain Name Role Phone Shila Dsouza PA-C Primary Care Provider Reason for Visit * Reason Comments BACK PAIN Right Back/Buttock D OI: chronic issue exacerbated on Sep 05MOI: bulged disc, arthritis Encounter Details Date Type Department Care Team (Late st Contact Info) Description 09/11/2024 7:50 PM MARINA DRY DOCK MANAGER Office Visit [facility] at [address] [address] Madi Pal MD [address] [facility] [address] [place] [id number] Chronic bilateral low back pain without sciatica [...] 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 on file Not on file Not on file documented as of this encounter Last Filed Vital Signs Vital Sign Reading Time Taken Comments Blood Pressure - - Pulse - - Temperature 37.1 C (98.7 F) 09/11/2024 7:53 PM MARINA DRY DOCK MANAGER Respiratory Rate - - Oxygen Saturation - - Inhaled Oxygen Concentration - - Weight 89.8 kg (198 lb) 09/11/2024 7:53 PM MARINA DRY DOCK MANAGER Height 165.1 cm (5' 5) 09/11/2024 7:53 PM MARINA DRY DOCK MANAGER Body Mass Index 32.95 09/11/2024 7:53 PM MARINA DRY DOCK MANAGER documented in this encounter Patient Instructions * Patient Instructions* Karla Arriaga, ATC - 09/11/2024 7:50 PM MARINA DRY DOCK MANAGER Thank you for choosing [facility] for your health care visit today. If you have any questions regarding your visit or next steps, please contact us at [phone]. Madi Pal MD Medication Requests: Prescriptions are filled on Weekdays before 3:00PM For all medication refills: Request a refill using MyChart or contact your Pharmacy Paperwork Requests: FMLA or disability paperwork can be faxed to: [phone] Please allow 7-10 business days for completion of all paperwork. [facility] Worker's Compensation Services: E-mail Address: [email or web address] What is Know Your Cost? Know Your Cost is a service for patients and patient/members to call and receive personalized cost information and estimates across our care group. The phone number is (COST) Monday - Monday 8 AM to 5 PM To request copies of your medical records, call: [phone] (option 4) Diagnosis: Encounter Diagnosis Name Primary? [...] all medication refills: Request a refill using [employer] or contact your Pharmacy NA DRY DOCK MANAGER documented in this encounter Progress Notes * [...] radiculopathy. Continue conservative treatment with TENS unit, director medicare sales, physical therapy, Meloxicam, and Tylenol. Patient may have possible underlying diagnosis of Fibromyalgia. Rx sent for Methocarbamol 750mg BID PRN to pharmacy. Recommend contacting Dr. Blackman's office if no improvement. Could consider repeat injection as that has helped her or possibly Medrol dose pack if no significant improvement. Madi Pal MD, CAQSM [facility] NA DRY DOCK MANAGER documented in this encounter Plan of Treatment Upcoming Encounters Date Type Department Care Team (Late st Contact Info) Description 10/17/2024 9:00 AM CDT Appointment [facility] [address] [place] [address] Morris Blackman MD [address] [place] [address] SHELBY Cavazos [address] documented as of this encounter Visit Diagnoses Diagnosis Chronic bilateral low back pain without sciatica- Primary documented in this encounter Care Teams Manager Mountain Relationship Specialty Start Date End Date Sihla Dsouza PA-C [address] [place] [address] PCP - General Physician Creative Producer 02/14/17 documented as of this encounter
--- OUTSIDE RECORDS SUMMARY | 2024-09-21 15:11 | XMS_ITS | Encounter Summary ---
Author Organization [employer] Address [address] [place] [address]. [place] [address] Care Team Providers Care Sticker Machine Operator Name Role Phone Jared Murillo MD Unavailable Jared Murillo MD Primary Care Provider [phone] Sabina Lowery MD Unavailable + Jeffry Naqvi DPGlenys Unavailable [phone] Marc ConnC Unavailable [phone] Sabina Lowery MD Unavailable + Nithin Abbott MD Unavailable [phone] Marc ConnC Unavailable [phone] France Suzette Ro CNGlenys Unavailable Sabina Lowery MD Unavailable + Marc Conn PA-C Unavailable [phone] Sabina Lowery MD Unavailable + Aniket Curiel MD Unavailable Jared Murillo MD Unavailable Reason for Visit * Reason Onset Date Comments MH/CD Inpatient 06/21/2019 Encounter Details Date Type Department Care Team (Late st Contact Info) Description 06/21/2019 Telephone [facility] [address] [place] [address] Generic, Behavioral Intake, MH/CD Inpatient Social History [...] PM CDT Legal Sex Female 4:39 AM STRUCTURAL WORKER Gender Identity Female 11/08/2021 8:44 PM CDT Sexual Orientation Straight 11/08/2021 8: 44 PM CDT documented as of this encounter Miscellaneous Notes * Telephone Encounter - Aura Oviedo RN - 06/21/2019 6:02 PM CST Pt discharged at 1630 to [facility] Waitlist updated to reflect this CTURAL WORKER * Telephone Encounter - Luciano Nuñez - 06/21/2019 10:57 AM STRUCTURAL WORKER [facility] is reviewing case; technical writer and editor heather Taylor ED contact information for any follow up questions; awaiting response CTURAL WORKER * Telephone Encounter - Luciano Nuñez - 06/21/2019 10:30 AM STRUCTURAL WORKER S - 38/F presenting to ED after [...] attempts hx of IP MH tx in [facility] 2004 , Pt. Struggles to sleep 3 to 4 hours a night in the past week. A - Vol R - Pt. Requesting admission to [facility] Pt. Reports [facility] is appropriate Due to patients Job patient cannot go to [facility] CTURAL WORKER documented in this encounter Plan of Treatment Not on file documented as of this encounter Visit Diagnoses Not on filedocumented in this encounter Additional Health Concerns Infection Onset Date Last Indicated Resolved Time Rule Out COVID-19 04/22/2020 04/22/2020 04/23/2020 7:32 PM CDT Assessment Noted Time PHQ-9 Depression Total Score: 7 05/16/20 19 10:43 AM CDT documented as of this encounter Care Teams Sticker Machine Operator Relationship Specialty [place] [address] [place] [address] PCP - General Family Practice 12/25/18 [place] [address] [place] [address] Assigned PCP 07/26/18 03/07/20 Sabina Lowery MD [facility] [address] [place] [address] [address] [place] [address] Assigned PCP 03/08/20 12/23/20 Jeffry Naqvi DPM [address] [facility] [address] [place], [place] [address] Assigned Musculoskeletal Provider 05/22/20 11/21/20 Marc Conn PA-C [address] [place] [address] Assigned PCP 12/24/20 08/07/21 Sabina Lowery MD [facility] [address] [place] [address] Assigned PCP 08/08/21 12/24/21 Nithin Abbott MD [address] [facility] [address] [place] [address] Assigned OBGYN Provider 12/25/2105/20 Marc Conn PA-C [facility] [address] [address] Assigned PCP 12/25/21 06/10/22 Suzette Hough CNM [address] [place] [address] Assigned OBGYN Provider 05/21/22 Sabina Lowery MD [facility] [address] [place] [address] Assigned PCP 06/11/22 07/15/22 Marc Conn PA-C [address] [place] [address] Assigned PCP 07/16/22 09/23/22 Sabina Lowery MD [address] [place] [address] Assigned PCP 09/24/22 12/23/22 Aniket Curiel MD [address] [place] [address] Assigned PCP 12/24/22 02/19/24 [place] [address] [place] [address] Assigned PCP 02/20/24 documented as of this encounter
--- OUTSIDE RECORDS SUMMARY | 2024-09-21 15:11 | XMS_ITS | Encounter Summary ---
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 Thank you. INTMENT SPECIALIST * Juany Esteves RN - 08/27/2024 10:47 [...] pain is quite minimal. She can use [id number] pain medications if needed, however pain medications [...] 4. Surgery: Not indicated at this time. INTMENT SPECIALIST documented in this encounter Plan of Treatment Upcoming Encounters Date Type Department Care Team (Late st Contact Info) Description 10/17/2024 9:00 AM CDT Appointment [facility] [address] [place], [place] [address] [place] [address] [place] [address] documented as of this encounter Visit Diagnoses Diagnosis Right arm pain Pain in limb documented in this encounter Care Teams Charge Machine Operator Relationship Specialty Start Date End Date Shila Dsouza, PAClaudeC [address] [place] [address] PCP - General Physician Patrol Police Sergeant 02/14/17 documented as of this encounter
--- OUTSIDE RECORDS SUMMARY | 2024-09-21 15:11 | XMS_ITS | Clinical Summary ---
Author Organization [facility] Address [address] [place] [address] Care Team Providers Care Knife Edger Name Role Phone Unknown, Dr Primary Care Provider Unavailabl e Allergies No [...] on file Legal Sex Female 7:26 AM MUSEUM TOUR GUIDE Gender Identity Not on file Sexual Orientation [...] patient's age to complete this topic Insurance [facility] Care Teams Knife Edger Relationship Specialty Start Date End Date Unknown, PCP - General 07/26/07
[2024-09-21 15:12] VITALS: BP 125/82; PULSE 93; RESP 18; TEMP 36.6; O2SAT 97; BMI 33.1
--- NOTE | 2024-09-21 16:49 | ED_ITS ---
HPI - General Adult General Date Seen: 09/21/24 Chief complaint: Abdominal Pain Stated complaint: gall stone, lots of symptoms Time Seen by Provider: 09/21/24 16:37 History of Present Illness HPI narrative: 44 yo F with a history of chronic low back pain, anxiety, depression, GERD, IUD in place, presents to the ER today for concern for right upper quadrant epigastric abdominal pain, nausea on acid reflux. She says that she was diagnosed with a gallstone he offered to last week when she was in the ER. At that time she was not having any symptoms directly attributed to gallstones so was not recommend any specific therapy. She notes that yesterday morning she had an episode of epigastric and right upper quadrant pain it lasted most of the day and got better. More she was awoken from sleep again this morning with more pain. She notes that she did have a taco bake last night. This morning she had the pain there like an ache in her right upper quadrant also lot of central heartburn and nausea. Symptoms are getting better this afternoon she is actually feeling quite a bit better now. Still mild GERD. She is not running a fever. No vomiting. Bowel movements normal. Urination normal. You Her back pain that brought her to the ER last week is still manageable and essentially is unchanged. No new urinary symptoms was in ER 7 days ago on 09/13/24. Lab workup showed a white count of 20.6, hemoglobin 14.1, platelet count 399. Sodium 137, potassium 3.7, BUN 23, creatinine 0.6, glucose 149. Total bilirubin was 0.3, AST 29, ALT 61, alk-phos 66. Urinalysis showed 10-25 WBC/HPF. Negative nitrite. COVID/influenza/RSV PCR was negative. CT scan of the patient's abdomen showed no evidence for kidney stones. Lower chest: Unremarkable. Liver: Unremarkable. Normal in size and attenuation. No suspicious masses. Gallbladder and bile ducts: Unremarkable. No stones or inflammation. No biliary dilatation. Pancreas: Unremarkable. No mass or inflammation. Spleen: Small splenic hypodense lesion that is indeterminate but statistically favored benign (/). Normal in size. Adrenal glands: Unremarkable. No nodules. Kidneys: Unremarkable. No suspicious masses, stones, or hydronephrosis. GI tract: Unremarkable. Normal in caliber. No sign of mass or inflammation. Normal appendix. Vasculature: Abdominal aorta is normal in caliber. Mesenteric arteries are patent. Lymph nodes: No lymphadenopathy. Peritoneum/Abdominal Wall: Unremarkable. No sign of mass or infiltration. No free air or significant free fluid. Pelvis: Bladder is unremarkable. Intrauterine IUD. Bones: Unremarkable for age. IMPRESSION: No acute findings to explain the patient`s symptoms. Specifically, no evidence of obstructive urolithiasis. She had a gallbladder ultrasound done on 09/15 IMPRESSION: 1.1.9 centimeter stone at the gallbladder. Patient is on pain medications. 2. Hepatomegaly with hepatic steatosis. She had an MRI of her lumbar spine on 09/16 Impression: 1. Mild multilevel degenerative disc disease with disc desiccation, height loss and small disc protrusions worst at the L4-L5 level with [id number] spinal canal narrowing and neural foraminal narrowing. No evidence of marrow edema, enhancement or inflammatory change to suggest discitis or osteomyelitis. Related Data Home Medications ?Medication ?Instructions ?Recorded ?Confirmed bupropion HCl 150 mg 24 hr tablet, 150 mg PO QAM 12/19/23 09/21/24 extended release clonazepam 0.5 mg tablet 0.5 mg PO HS PRN 12/19/23 09/21/24 gabapentin 100 mg capsule 100 - 300 mg PO TID PRN 12/19/23 09/21/24 meloxicam 15 mg tablet 15 mg PO DAILY 12/19/23 09/21/24 multivitamin (Daily Multi-Vitamin 1 tab PO QAM 12/19/23 09/21/24 tablet) omeprazole 20 mg capsule,delayed 20 mg PO DAILY 12/19/23 09/21/24 release duloxetine 20 mg capsule,delayed 40 mg PO DAILY 09/14/24 09/21/24 release Previous Rx's ?Medication ?Instructions ?Recorded tirzepatide (weight loss) 5 mg/0.5 5 mg (0.5 mL) subcut QWEEK #2 mL 09/11/24 mL subcutaneous pen injector (Sounderpbound) acetaminophen 325 mg tablet 650 mg (2 x 325 mg) PO Q6H PRN 09/16/24 pain, headache, fever #100 tabs hydromorphone 2 mg tablet 2 mg PO Q6H PRN Pain #20 tabs 09/16/24 Allergies Allergy/AdvReac Type Severity Reaction Status Date / Time No Known Drug Allergies Allergy Verified 09/21/24 15:18 [facility] Surgical History History of surgery ?Z98.890 - Other specified postprocedural states (ICD-10) Social History What is your current living situation?: I presently have a place to live Problems where you live: no known problems Problems where you live details: NA In the past 12 months, utilities in danger of being shut off: no In past 12 months, lack of transportation kept you from medical appts, meetings, work, or getting things needed for daily living: no In the past 12 mos, have been you worried that your food would run out before you had money to buy more?: never true In the past 12 mos, the food you bought just didn't last and you didn't have money to buy more?: never true Highest level of school completed/degree received: Master's degree Smoking Status: Current every day smoker What tobacco products do you use: cigarettes Do you use any of these nicotine containing products: None Second hand tobacco smoke exposure: No How often do you have a drink containing alcohol: never AUDIT-C Alcohol total score: 0 Non-prescribed substance use: denies use Caffeine: No How often does anyone, including family, friends and others, physically hurt you : never How often does anyone, including family, friends and others, insult or talk down to you: never How often does anyone, including family, friends and others, threaten you with harm: never How often does anyone, including family, friends and others, scream or curse at you: never service: No Exam Narrative: Exam Narrative: Constitutional: Appears well-developed and well-nourished. Alert. Conversant. Non toxic. HENT: Head: Atraumatic. Nose: Nose normal. Mouth/Throat: Oral mucosa is clear and moist. no trismus. Pharynx normal. Tonsils symmetric. No tonsillar enlargement, erythema, or exudate. Eyes: Conjunctivae normal. EOM normal. Pupils equal, round, and reactive to light. No scleral icterus. Neck: Normal range of motion. Neck supple. No tracheal deviation present. Cardiovascular: Normal rate, regular rhythm. No gallop. No friction rub. No murmur heard. Symmetric radial artery pulses Pulmonary/Chest: Effort normal. No stridor. No respiratory distress. No wheezes. No rales. No rhonchi . No ribcage tenderness. Abdominal: Soft. Bowel sounds normal. No distension. No mass. Mild epigastric and right upper quadrant tenderness. No CVA tenderness. No Patel sign No rebound. No guarding. Musculoskeletal: RUE: Normal range of motion. No tenderness. No deformity LUE: Normal range of motion. No tenderness. No deformity RLE: Normal range of motion. No edema. No tenderness. No deformity LLE: Normal range of motion. No edema. No tenderness. No deformity Neurological: Alert and oriented to person, place, and time. Normal strength. CN II-VII intact. No sensory deficit. GCS eye subscore is 4. GCS verbal subscore is 5. GCS motor subscore is 6. Normal coordination Skin: Skin is warm and dry. No rash noted. No pallor. Normal capillary refill. Psychiatric: Normal mood. Normal affect. Const: Vital Signs, click to edit/add: Vital Signs - 24 hr 09/21/24 15:12 Temperature 97.9 F Pulse Rate [Right Pulse Oximeter] 93 Respiratory Rate 18 Blood Pressure [Ri ght Upper Arm] 125/82 Pulse Oximetry 97 Oxygen Delivery Me thod Room Air Course Vital Signs Vital signs: Initial Vital Signs Temperature 97.9 F 09/21/24 15:12 Temperature Source Temporal Artery Scan 09/21/24 15:12 Pulse Rate 93 09/21/24 15:12 Pulse Rhythm Regular 09/21/24 15:12 Pulse Strength 3+ Normal 09/21/24 15:12 Respiratory Rate 18 09/21/24 15:12 Blood Pressure 125/82 09/21/24 15:12 Blood Pressure Mean 96 09/21/24 15:12 Blood Pressure Position Sitting 09/21/24 15:12 Pulse Oximetry 97 09/21/24 15:12 Oxygen Delivery Method Room Air 09/21/24 15:12 Vital Signs Temperature 97.9 F 09/21/24 15:12 Pulse Rate 93 09/21/24 15:12 Respiratory Rate 18 09/21/24 15:12 Blood Pressure 125/82 09/21/24 15:12 Pulse Oximetry 97 09/21/24 15:12 Oxygen Delivery Method Room Air 09/21/24 15:12 Temperature 97.9 F 09/21/24 15:12 Pulse Rate 93 09/21/24 15:12 Respiratory Rate 18 09/21/24 15:12 Blood Pressure 125/82 09/21/24 15:12 Pulse Oximetry 97 09/21/24 15:12 Oxygen Delivery Method Room Air 09/21/24 15:12 Medical Decision Making MDM Narrative Medical decision making narrative: 44-year-old female presents to the ER today with concern for nausea, heartburn, as well as epigastric/right upper quadrant abdominal pain that occurred yesterday and occurred again this morning after she woke up. She is actually feeling quite a bit better by the time I evaluate her here in the ER. She also deals with longstanding trouble with back pain and degenerative disc disease and was here in the ER last week. During that evaluation she had an abdomen/pelvis CT to look for kidney stones and gallbladder ultrasound which confirmed a stone in her gallbladder but no evidence for cholecystitis or choledocholithiasis. She says overall her back pain is stable to slightly improved. She is not here because of back related problems. She was treated for kidney infection and says that sort of pain is actually better. She is not febrile Her current presentation is concerning for an episode of gallbladder pathology. Differential would include an episode of biliary colic, evolving cholecystitis or choledocholithiasis. Repeat gallbladder ultrasound confirms the gallstone but does not show any sign of cholecystitis, wall thickening, pericholecystic fluid. Common bile duct is normal. LFTs are normal. ALT is 34, down slightly from 30/9 last week. AST is normal at 27. Alk-phos is normal at 63. Total bilirubin remains normal at 0.4. Lipase is normal. White count is normal today at 9.9, down from 14.1 on 09/15. At this point no evidence for acute active cholecystitis. Remainder of her abdominal exam is reassuring. At this point I do not think she needs repeat CT imaging to look for evolving appendicitis, colitis, diverticulitis, or other surgical pathology. Symptoms are largely resolved here in the ER. she is comfortable discharging to home. Shared he has an outpatient clinic visit set up on Monday where she is going to be seeing 1 of the surgeons, in [place]. Discussed precautions for return to the ER. Questions answered She also notes that she has been having a lot a reflux lately. She is currently on omeprazole 20 mg p.o. daily. We for the next couple weeks will have her i ncrease that dose up to 40 mg per day. She has been using prescribed meloxicam for her back. Discussed that if reflux symptoms are getting better we may need to reduce or discontinue her NSAIDs. She will follow-up with her PCP to make that adjustment Lab Data Labs: Lab Results 09/21/24 Range/Units 17:24 WBC 9.90 (4.50-11.00) K/uL RBC 4.70 (4.00-5.20) m/uL Hgb 13.6 (12.0-16.0) gm/dL Hct 42.9 (33.0-51.0) % MCV 91 (80-100) fL MCH 29 (26-34) pg MCHC 32 (32-36) gm/dL RDW Coeff of Alhaji 12.3 (11.5-15.5) % Plt Count 342 (140-440) K/uL Neut % (Auto) 51.7 (42.0-72.0) % Lymph % (Auto) 39.6 (20-44) % [place] % (Auto) 6.0 (0.0-11.0) % Eos % (Auto) 1.8 (0.0-7.0) % Baso % (Auto) 0.1 (0.0-3.0) % Neut # (Auto) 5.12 (1.7-7.0) K/uL Lymph # (Auto) 3.92 H (0.90-2.90) K/uL [place] # (Auto) 0.60 (0.00-0.90) K/UL Eos # (Auto) 0.18 (0.00-0.50) K/uL Baso # (Auto) 0.01 (0.00-0.30) K/uL Abs Immat Gran (auto) 0.08 (0.00-0.30) K/uL Imm/Tot Granulo (auto) 0.8 % Sodium 139 (135-149) mmol/L Potassium 4.0 (3.6-5.1) mmol/L Chloride 104 (96-114) mmol/L Carbon Dioxide 30 (20-32) mmol/L Anion Gap 5 L (7-15) mEq/L BUN 17 (5-24) mg/dL Creatinine 0.6 (0.5-1.5) mg/dL Estimated Creat Clear 106.55 Estimated GFR 113 ml/min Glucose 111 (60-115) mg/dL Calcium 9.5 (8.4-10.6) mg/dL Total Bilirubin 0.4 (0.1-1.5) mg/dL AST 27 (12-35) U/L ALT 34 (4-35) U/L Alkaline Phosphatase 63 (40-150) U/L Total Protein 6.9 (6.0-8.3) g/dL Albumin 4.4 (3.3-5.0) g/dL Lipase 79 (23-300) U/L Imaging Data US - abdomen: Attestation: I have reviewed the pertinent imaging results. Radiologist's impression: FINDINGS: Gallbladder: Large mobile gallstone. Normal wall thickness. No pericholecystic fluid. Negative sonographic Patel`s sign. Common bile duct: 5 mm. IMPRESSION: Cholelithiasis without acute cholecystitis or biliary obstruction. Discharge Plan Discharge Clinical Impression: Biliary colic Patient Disposition: Home, Self-Care Condition: Stable Instructions: Biliary Colic (ED) Additional Instructions: As we discussed, use your pain medication (Dilaudid) or Tylenol as needed for your pain. Try to avoid greasy or fatty foods. Stick to a low-fat, bland diet. Please follow-up with your doctor on Monday for your checkup. Come back to the ER right away if you have any problems-especially if you have worsening abdominal pain, uncontrolled nausea vomiting, jaundice, fever, or any other concerns. To help with your ?heartburn?, you can increase your omeprazole from 20 mg per day up to 40 mg per day. Talk to your doctor about your reflux , you may need to reduce or discontinue meloxicam as well. Prescriptions: No Action bupropion HCl 150 mg tablet extended release 24 hr 150 mg PO QAM gabapentin 100 mg capsule 100 - 300 mg PO TID PRN clonazepam 0.5 mg tablet 0.5 mg PO HS PRN meloxicam 15 mg tablet 15 mg PO DAILY multivitamin [Daily Multi-Vitamin] Tablet 1 tab PO QAM omeprazole 20 mg capsule,delayed release(DR/EC) 20 mg PO DAILY duloxetine 20 mg capsule,delayed release(DR/EC) 40 mg PO DAILY acetaminophen 325 mg Tablet 650 mg PO Q6H PRN (Reason: pain, headache, fever) Qty: 100 0RF hydromorphone 2 mg Tablet 2 mg PO Q6H PRN (Reason: Pain) Qty: 20 0RF Zepbound 5 mg/0.5 mL pen injector 5 mg subcut QWEEK Qty: 2 2RF Patient Comments: hasn't started yet Follow Up/Referrals: Topher Maldonado PA-C [Primary Care Provider] - Stand Alone Forms: [facility] Inst[facility]
--- NOTE | 2024-09-21 17:12 | CRLHL7_ITS ---
For Patients: As a result of the Century Cures Act, medical imaging exams and procedure reports are released immediately into your electronic medical record. You may view this report before your referring provider. If you have questions, please contact your health care provider. INDICATION: Right upper quadrant abdomen pain. TECHNIQUE: Ultrasound abdomen limited. Sonographic images of the gallbladder were obtained using peoples-scale and color Doppler images. COMPARISON: September 15, 2024. FINDINGS: Gallbladder: Large mobile gallstone. Normal wall thickness. No pericholecystic fluid. Negative sonographic Patel`s sign. Common bile duct: 5 mm. IMPRESSION: Cholelithiasis without acute cholecystitis or biliary obstruction. Dictated by Suresh Leon MD @ 09/21/2024 6:36:19 PM (Electronically Signed)
[2024-09-21 17:29] LABS: Basophils Absolute Auto 0.01 K/uL (0.00-0.30); Basophils Percent Auto 0.1 % (0.0-3.0); Eosinophils Absolute Auto 0.18 K/uL (0.00-0.50); Eosinophils Percent Auto 1.8 % (0.0-7.0); Hematocrit 42.9 % (33.0-51.0); Hemoglobin* 13.6 gm/dL (12.0-16.0); Immature Granulocytes Abs Auto 0.08 K/uL (0.00-0.30); Immature Granulocytes Pct Auto 0.8 %; Lymphocytes Absolute Auto 3.92 K/uL (0.90-2.90); Lymphocytes Percent Auto 39.6 % (20-44); Mean Corpuscular HGB Conc 32 gm/dL (32-36); Mean Corpuscular Hemoglobin 29 pg (26-34); Mean Corpuscular Volume 91 fL (80-100); Neutrophils Absolute Auto 5.12 K/uL (1.7-7.0); Neutrophils Percent Auto 51.7 % (42.0-72.0); Platelet Count* 342 K/uL (140-440); RDW Coefficient of Variation % 12.3 % (11.5-15.5)
[2024-09-21 17:33] LABS: Slide Review Reflex No
[2024-09-21 17:44] LABS: Albumin* 4.4 g/dL (3.3-5.0)
[2024-09-21 17:45] LABS: Chloride* 104 mmol/L (96-114); Sodium* 139 mmol/L (135-149)
[2024-09-21 17:47] LABS: Anion Gap 5 mEq/L (7-15); Aspartate Amino Transferase* 27 U/L (12-35); Bilirubin Total* 0.4 mg/dL (0.1-1.5); Carbon Dioxide* 30 mmol/L (20-32); Creatinine* 0.6 mg/dL (0.5-1.5); Est. Creatinine Clearance* 106.55; Estimated Glomerular Filt Rate 113 ml/min; Total Protein* 6.9 g/dL (6.0-8.3)
[2024-09-21 17:48] LABS: Alanine Aminotransferase* 34 U/L (4-35); Alkaline Phosphatase* 63 U/L (40-150); Blood Urea Nitrogen* 17 mg/dL (5-24); Calcium* 9.5 mg/dL (8.4-10.6); Glucose* 111 mg/dL (60-115); Lipase* 79 U/L (23-300)
[2024-09-21 18:48] LABS: Appearance Urine Clear (Clear); Bilirubin Urine Negative (Negative); Blood Urine Trace-intact (Negative); Color Urine Yellow (Yellow); Glucose Urine Negative (Negative); Ketones Urine Negative (Negative); Leukocyte Esterase Urine Negative (Negative); Nitrite Urine Negative (Negative); Protein Urine Negative (Negative); Urobilinogen Urine 0.2 (0.2-1.0); pH Urine 6.5 (5.0-8.5)
[2024-09-21 19:02] LABS: Bacteria Urine Few; RBC Urine 0-2 (0-2); Squamous Epithelial Cell Urine Few (None-Few); WBC Urine 0-2 (0-5)
== END 2024-09-21 19:24 | disposition home or self-care (01) ==
PROVIDERS: Emergency Provider Emergency Medicine; PCP Physician Assistant Medical
DX: K80.50 Calculus of bile duct without cholangitis or cholecystitis without obstruction (principal)
CPT/HCPCS: 36415; 76705; 80053; 81001; 83690; 85025; 87086; 99284

== ENCOUNTER 2024-10-07 07:51 | Day surgery (SDC) | payer BC, SELFPAY ==
[2024-10-07] VITALS (13 sets, daily range): BP systolic 101–141; BP diastolic 58–84; PULSE 76–105; RESP 13–16; TEMP 36.3–36.5; O2SAT 90–96; BMI 33.0
[2024-10-07] MEDS: LACTATED RINGERS 1000 ML 1,000 ML 100 ML IV (08:15)
[2024-10-07] MEDS: SODIUM CHLORIDE 0.9 % (FLUSH) 10 ML SYRINGE IVF (08:15)
--- NOTE | 2024-10-07 09:12 | W.PM.H&PU ---
History & Physical Update History & Physical Update H&P Reviewed and patient assessed: The following changes are noted below H&P Updates: Madison held her meloxicam in anticipation of surgery. has been using dilaudid PRN for back pain. We discussed that post-op she can take meloxicam and tylenol. I will write a prescription for dilaudid for PRN severe pain.
--- NOTE | 2024-10-07 09:15 | PM.GSPRC ---
Operative Note Date of procedure: 10/07/24 Pre-op diagnosis: Biliary colic Post-op diagnosis: Same Type of Procedure: Laparoscopic cholecystectomy Indications: The patient is a 44-year-old female who presented to clinic with recent symptoms of right upper quadrant pain after eating. This was discovered while she was hospitalized for acute on chronic back pain, during which time she also had right-sided pain which was different from prior. She was found to have cholelithiasis. She had an additional episode which came on after eating. This was severe enough to bring her into the emergency department. As her symptoms seem consistent with biliary colic, we discussed cholecystectomy. After discussion of options, she elected to proceed. Procedure Description: After discussing the risks and benefits of the procedure, the patient signed informed consent.? The operative site was marked and the patient was brought to the operating room and placed on the operating table in supine position.? Care was taken to pad the patient's pressure points.?? The patient was then intubated by anesthesia.?? The operative site was then prepped and draped in the usual sterile fashion.? A time-out was then performed. Entrance to the abdomen was gained via a 5 mm Visiport in the left upper quadrant. The abdomen was insufflated and briefly surveyed for signs of injury. There was none. A 10 mm umbilical port was placed as well as 2 working ports along the right costal margin, all under direct vision. The patient was then placed in reverse Trendelenburg position with the right side up. The liver was noted to be markedly enlarged. The gallbladder fundus was grasped and retracted cephalad. The infundibulum was grasped. There was a large stone noted in the neck of the gallbladder. This was pushed back into the gallbladder itself. A combination of hook cautery and blunt dissection was used to carefully dissect out the cystic duct and artery until they could clearly be seen entering the gallbladder without any intervening structures. The gallbladder was dissected off the cystic plate to achieve the critical view. Once this was achieved the cystic duct and artery were each clipped with 2 clips proximally and 1 clip distally and transected with the scissors. The gallbladder was then taken off of the liver bed. Another small vessel going from the liver bed to the gallbladder was clipped for hemostasis. Once the gallbladder was free, it was removed from the abdomen using an Endo-Catch bag. The gallbladder bed was surveyed for hemostasis which appeared adequate. A small amount of bile which had spilled was suctioned from the abdomen. The remaining ports were then removed and the abdomen desufflated. The umbilical port fascia was closed with 0 Vicryl. The skin was closed with absorbable subcuticular suture. Instrument sponge and needle counts were correct at the end of the case. The patient was then woken and transferred to the PACU in stable condition. Sterile dressings were then applied. ? The patient tolerated the procedure well. Findings: 1. Hepatomegaly 2. Gallstone impacted in gallbladder neck Anesthesia: MAXIME Surgeon: Nikki Armando MD Estimated blood loss (mL): 10 Specimen: Gallbladder Condition: stable Disposition: PACU
[2024-10-07] MEDS: CEFAZOLIN 2 GM INJ IVP (09:24)
[2024-10-07] MEDS: BUPIVACAINE 0.25% 30 ML INJECTION (10:00)
--- NOTE | 2024-10-07 10:23 | W.ANESCHARGE ---
Anesthesia Charges Start Date/Time Anesthesia Start Date: 10/07/24 Anesthesia Start Time: 09:00 Stop Date/Time Anesthesia Stop Date: 10/07/24 Anesthesia Stop Time: 10:22 Coding CPT Codes CPT Codes: ANESTH SURG UPPER ABDOMEN - 83878 ([id number]) P2 - PATIENT W/MILD SYST DISEASE, QK - MANAGER FIELD SALES 2-4 CNCRNT ANES PROC, QX - DESIZING MACHINE BACK TENDER SVC W/ MD MED DIRECTION
--- NOTE | 2024-10-07 11:10 | W.ANESCHARGE ---
Anesthesia Charges Start Date/Time Anesthesia Start Date: 10/07/24 Anesthesia Start Time: 09:00 Stop Date/Time Anesthesia Stop Date: 10/07/24 Anesthesia Stop Time: 10:22 Coding CPT Codes CPT Codes: ANESTH SURG UPPER ABDOMEN - 45649 ([id number]) QK - STEEL ESTIMATOR 2-4 CNCRNT ANES PROC, QX - PARALEGAL SPECIALIST SVC W/ MD MED DIRECTION, P2 - PATIENT W/MILD SYST DISEASE
== END 2024-10-07 11:46 | disposition home or self-care (01) ==
PROVIDERS: PCP Physician Assistant Medical; Visit Provider Surgery
PROC: 0FT44ZZ Resection of Gallbladder, Percutaneous Endoscopic Approach (ICD-10-PCS; CPT 47562; principal; 2024-10-07 09:00)
DX: K80.11 Calculus of gallbladder with chronic cholecystitis with obstruction (principal); R10.11 Right upper quadrant pain
CPT/HCPCS: 47562; 00790; 88304; J0665; J0690; J1100; J1171; J1630; J1885; J2371; J2405; J2704; J2710; J3010; J7120

== ENCOUNTER 2025-02-04 15:19 | Outpatient (CLI) | payer BC, SELFPAY | END 2025-02-04 15:20 | disposition home or self-care (01) | LOC: LKVREF 15:19 | PROVIDERS: PCP Physician Assistant Medical; Visit Provider Otolaryngology | DX: R79.89 Other specified abnormal findings of blood chemistry (principal); G25.81 Restless legs syndrome | CPT/HCPCS: 82728 ==

== ENCOUNTER 2025-02-13 17:55 | Emergency (ER) | payer BC, SELFPAY ==
--- OUTSIDE RECORDS SUMMARY | 2025-01-01 08:30 | XMS_ITS | Encounter Summary ---
Author Organization [email or web address] Address [address] [place] [address] Care Team Providers Care Golf Course Starter Name Role Phone Shila Dsouza PA-C Primary Care Provider Reason for Visit * Reason Comments BACK PAIN, LOW NECK PAIN Encounter Details Date Type Department Care Team (Late st Contact Info) Description 01/01/2025 8:30 AM CDT Therapy Physical Therapy at [facility] Physical [facility] Anaya [place] [address] [place], [place] [address] Maritza Westbrook, PT [address] [place] [address] Mechanical low back pain (Primary Dx); Neck pain Social History Tobacco Use Types Packs/Day Years [...] 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 Pt still w/ limitation w/ sitting ADL's. Cervical 01/01/2025 8:30 AM Cervical Set 1 Ext % Max 100 Set 1 Ext ROM 30-96 Set 1 Ext Wgt 156 Set 1 Ext Reps 30 Set 1 Ext Tul - Set 1 Ext Monika RPE 7 Set 2 Ext % Max 100 Set 2 Ext ROM 30-96 Set 2 Ext Wgt 165 Set 2 Ext Reps 30 Set 2 Ext Tul - Set 2 Ext Monika RPE 8 Objective Tests & Measures: 5% increase L-ext weight due to reps, RPE last 100% weight 5.8% increase C-ext 2nd set due to reps, RPE 1st set C-ext ROM: 30-96 (+6) 5# increase abs 10# increase leg press Tests performed today (see reviewflowsheet for score and outcomes): : None Performed Today Warm Up: Movement Specific Training: Not Completed Treadmill: Minutes 5 Intensity 2.8mph ICE: low back Lumbar 01/01/2025 8:30 AM Lumbar & Torso Set 1 Ext % Max 100 Set 1 Ext ROM 0-42 Set 1 Ext Wgt 63 Set 1 Ext Reps 25 Set 1 Ext Tul - Set 1 Ext Monika RPE 8 Set 2 Ext % Max 100 Set 2 Ext ROM 0-42 Set 2 Ext Wgt 63 Set 2 Ext Reps 20 Set 2 Ext Tul - Set 2 Monika RPE 8 Therapeutic Exercise (47 min): Patient performed isolated lumbar extension exercise, isolated cervical rotation exercise, and auxillary exercises to improve muscle strength to increase tolerance for household tasks and work activities Cues for positioning on L-ext to be snug in machine to engage correct muscles Neuromuscular Re-Education (0 min): None performed today. Auxillary 01/01/2025 8:30 AM Auxillary Abs Wgt Set 1 45 Abs Reps Set 1 30 Leg Press Wgt Set 1 160 Leg Press Reps Set 1 34 Rows Wgt Set 1 35 Rows Reps Set 1 30 Therapeutic Activities (0 min): Not performed today. Patient Education: Patient was instructed in pain/time scale and correlation of strength and function to increase their understanding of the benefits related to completing the [facility] Neck and Back Strengthening program Function, tolerance to ADL's typically improve as strength/endurance increase Assessment: Pt did well during session, tolerated weight increase w/ ex. Receptive to instruction, feedback, to improve quality of motion w/ L-ext performed. Will benefit from resuming 2x/wk. Goals: HEP/Independent Management: Demonstrate independence with HEP and self- management following each treatment session ADL's: Resume previous sleep pattern without awakening due to symptoms in 12 weeks. Perform home management tasks with ease in 12 weeks. Sit for greater than 4 hour(s) with minimal/no symptoms in 12 weeks. Transition in and out of bed with ease in 12 weeks. Wash and groom with ease in 12 weeks. Bend to brick picker item from floor in 12 weeks. Stand for at least 60 minutes without increased symptoms in 12 weeks. Transition sit to stand with normal positioning and weight bearing in 12 weeks. Driving: Drive with ease and safety in 12 weeks. Ambulation: Ambulate for 30 minutes without increased symptoms in 12 weeks. Work: Return to work without restrictions in 12 weeks. Precautions/Other Information: Pt had f/u with pain management in early November, they advised trigger point injections and EMG to assess paresthesias in the hands (Pt hasn't scheduled it yet) Access Code: [email or web address] (text) L-Ext: #75, C-ext: #198 Strength Maintenance: unknown Need provider order/referral if still needing therapy after 02/13/25 - PNE started 12/12/24 Past PNBC pt in 2017 Anticipated visits to d/c: 10-16 Recommendations/Communication: C-ext 100% T-roto 100% Sampson chair HEP instruction Total timed code min: Total treatment time: Maritza Westbrook, PT 01/01/2025, 10:17 AM documented in this encounter Plan of Treatment Not on file documented as of this encounter Visit Diagnoses Diagnosis Mechanical low back pain- Primary Lumbago Neck pain Cervicalgia documented in this encounter Care Teams Golf Course Starter Relationship Specialty Start Date End Date Shila Dsouza, PA-C [address] [place] [address] PCP - General Physician Director Occupational 02/14/17 documented as of this encounter
--- OUTSIDE RECORDS SUMMARY | 2025-01-15 08:30 | XMS_ITS | Encounter Summary ---
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 Pt now has scheduled appts that fit her work schedule Cervical 01/15/2025 8:30 AM Cervical Left Rot % Max 80 Left Rot ROM 42 Left Rot Wgt 32 Left Rot Reps 20 Left Rot Monika RPE 4 Right Rot % Max 80 Right Rot ROM 42 Right Rot Wgt 32 Right Rot Reps 20 Right Rot Monika RPE 4 Objective Tests & Measures: Pt 22' late Tests performed today (see reviewflowsheet for score and outcomes): : None Performed Today Warm Up: Movement Specific Training: Not Completed Treadmill: Minutes 5 Intensity 2.5 ICE: na Lumbar 01/15/2025 8:30 AM Lumbar & Torso Set 1 Ext % Max 100 Set 1 Ext ROM 0-42 Set 1 Ext Wgt 66 Set 1 Ext Reps 19 Set 1 Ext Tul - Set 1 Ext Monika RPE 6-lbp Set 2 Ext % Max 100 Set 2 Ext ROM 0-42 Set 2 Ext Wgt 66 Set 2 Ext Reps 17 Set 2 Ext Tul - Set 2 Monika RPE 8-lbp Therapeutic Exercise (30 min): Patient performed isolated lumbar extension exercise and isolated cervical rotation exercise to improve muscle strength to increase tolerance for household tasks and work activities Cues for breathing sequence w/ L-ext to limit valsalva Neuromuscular Re-Education (0 min): None performed today. [...] the [facility] Neck and Back Strengthening program Advancing weight consistently to improve strength/function is component of POC, to be ongoing challenge Pt demonstrated understanding of POC Assessment: Pt did well during session, Pt challenged w/ L-ext weight, demonstrating good effort. Receptive to instruction, feedback, to improve quality of motion w/ breathing w/ L-ext performed. Will benefit from consistent attendance in PT; pt in agreement Goals: HEP/Independent Management: Demonstrate independence with HEP [...] with ease in 12 weeks. Bend to picker item from floor in 12 weeks. [...] (Pt hasn't scheduled it yet) Access Code: [email or web address] (text) L-Ext: #75, C-ext: #198 Strength Maintenance: unknown Need provider order/referral if still needing therapy after 02/13/25 - PNE started 12/12/24 Past PNBC pt in 2017 Anticipated visits to d/c: 9-15 Recommendations/Communication: Oswestry, NDI for 10th C-ext 100% T-roto 100% Resume auxiliary as able Total timed code min: Total treatment time: Maritza Westbrook, PT 01/15/2025, 11:08 AM documented in this encounter Plan of Treatment Not on file documented as of this encounter Visit Diagnoses Diagnosis Mechanical low back pain- Primary Lumbago Neck pain Cervicalgia documented in this encounter Care Teams Fit Model Relationship Specialty Start Date End Date Shila Dsouza PA-C [address] [place] [address] PCP - General Physician Tower Control Operator 02/14/17 documented as of this encounter
--- OUTSIDE RECORDS SUMMARY | 2025-01-17 10:00 | XMS_ITS | Encounter Summary ---
Author Organization [employer] Address [address] [place] [address] Care Team Providers Care Seam Stayer Name Role Phone Shila Dsouza PA-C Primary Care Provider [phone] Reason for Visit * Reason Comments NECK PAIN BACK PAIN, LOW Encounter Details Date Type Department Care Team (Late st Contact Info) Description 01/17/2025 10:00 AM CDT Therapy Physical Therapy at [facility] Physical Therapy [place] [facility] [employer] [address] [place] [address] Dionisio Luna, MANAGER SOCIAL [address] , [place] [address] [place] [address] Mechanical low back pain (Primary Dx); Neck [...] 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 Cervical 01/17/2025 10:00 AM Cervical Set 1 Ext % Max 100% Set 1 Ext ROM 30-96 Set 1 Ext Wgt 177 Set 1 Ext Reps 20 Set 1 Ext Tul 127 Set 1 Ext Monika RPE 7 Set 2 Ext % Max 100% Set 2 Ext ROM 30-96 Set 2 Ext Wgt 177 Set 2 Ext Reps 26 Set 2 Ext Tul 155 Set 2 Ext Monika RPE 7 Objective Tests & Measures: Pt late so only time for Medx today & filling out JR/NDI Tests performed today (see reviewflowsheet for score and outcomes): : Oswestry and Neck Disability Index JR=30% NDI=22% Warm Up: Movement Specific Training: Not Completed Mat Exercises Completed Treadmill: Minutes 5 Intensity Moderate ICE: Declined Lumbar 01/17/2025 10:00 AM Lumbar & Torso Left Rot % Max 100% Left Rot ROM 40 Left Rot Wgt 34 Left Rot Reps 20 Left Rot Mague RPE 5/6 Right Rot % Max 100% Right Rot ROM 40 Right Rot Wgt 34 Right Rot Reps 20 Right Rot Monika RPE 5/6 Therapeutic Exercise (25 min): Patient performed isolated torso rotation exercise, isolated cervical extension exercise and auxillary exercises to improve muscle strength, to improve muscle endurance, to increase strength for seated posture, to increase strength for standing posture, to provide postural and scapular stability, increase strength and endurance levels of supporting spinal muscle groups and to strengthen postural muscles to decrease stresses on the spine to increase tolerance for Goals Below Reminders to slow reps down in Cext for better strength gains, fatigue & improvements to functional deficits too as program cont to progress. VC's for control of pace in torso rotation today, VC's for form with Aux Ex's. Neuromuscular Re-Education (0 min): None performed today. Auxillary 01/17/2025 10:00 AM Auxillary Abs Wgt Set 1 45 Abs Reps Set 1 0 Abs Wgt Set 2 45 Abs Reps Set 2 0 Glute Wgt Set 1 65 Glute Reps Set 1 0 Glute Wgt Set 2 65 Glute Reps Set 2 0 Leg Press Wgt Set 1 160 Leg Press Reps Set 1 0 Leg Press Wgt Set 2 160 Leg Press Reps Set 2 0 Rows Wgt Set 1 35 Rows Reps Set 1 20 Rows Wgt Set 2 35 Rows Reps Set 2 0 Lats Wgt Set 1 40 Lats Reps Set 1 0 Lats Wgt Set 2 40 Lats Reps Set 2 0 Therapeutic Activities (0 min): Not performed today. Patient Education: Patient was instructed in correlation of strength and function to increase their understanding of the benefits related to completing the [facility] Rehab program Reminders to push to full fatigue to build strength to muscles & see better improvements to Sx's as program progresses forward.Discussed HEP Maintenance Ex's once finished with therapy but no instruct due to late today. Assessment: Pt likes coming to therapy, feels Sx's can still fluctuate with good days, bad days butis feeling like therapy is benefiting pt, even though not a lot of improvements yet seen per pt, see JR/NDI scores above. Pt had no aggravation of Sx's during or after workout today. Observed for proper form/pace with all reps this Rx. Pt had good understanding of POC for rehab today & pt follows VC's well. Pt was glad to hear we teach them how to maintain Strength once finished. Pt cont Making good objective gains that should lead to more reduction in Sx's & more improvements towards functional activities in the future. Pt still appropriate for skilled therapy under current plan Goals: HEP/Independent Management: Demonstrate independence with HEP [...] with ease in 12 weeks. Bend to pick remover item from floor in 12 weeks. Stand [...] (Pt hasn't scheduled it yet) Access Code: [email or web address] (text) L-Ext: #75, C-ext: #198 Strength Maintenance: unknown Need provider order/referral if still needing therapy after 02/13/25 - PNE started 12/12/24 Past PNBC pt in 2017 Anticipated visits to d/c: 8-14 Recommendations/Communication: Do Aux Ex's next visit, 100% Lext & 100% C-Roto both with appropriate increases, instruct pt in Back HEP Ex's as well. Cont with POC. Total timed code min: 25 Total treatment time: 25 Dionisio Luna PTA 01/17/2025, 11:03 AM documented in this encounter Plan of Treatment Not on file documented as of this encounter Visit Diagnoses Diagnosis Mechanical low back pain- Primary Lumbago Neck pain Cervicalgia documented in this encounter Care Teams Seam Stayer Relationship Specialty Start Date End Date Shila Dsouza PA-C [address] [place] [address] PCP - General Physician Bar Tacker 02/14/17 documented as of this encounter
--- OUTSIDE RECORDS SUMMARY | 2025-01-20 08:30 | XMS_ITS | Encounter Summary ---
Author Organization [employer] Address [address] [place] [address] Care Team Providers Care It Lead Name Role Phone Shila Dsouza PA-C Primary Care Provider Reason for Visit * Reason Comments NECK PAIN BACK PAIN, LOW Encounter Details Date Type Department Care Team (Late st Contact Info) Description 01/20/2025 8:30 AM CDT Therapy Physical Therapy at [facility] Physical Therapy [facility] [address] [place] [address] Dionisio Luna, SKIAGRAPHER [address] [place], [place] Mechanical low back pain (Primary Dx); Neck [...] 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 on file Not on file documented as of this encounter Progress Notes * LunaDionisio Marty, SKIAGRAPHER - 01/20/2025 8:30 AM CDT 01/20/2025 Visit # 11 Protocol: Back and Neck, Sub-Full (soft transfer) Start: 8:40(Late) End: 9:15 (SKIAGRAPHER Visit # 5 Subjective: Pt had traveled to [place] over the weekend to 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 & was told she would be sleeping on a futon, so was concerned how back would hold up but sleeping on futon did not cause any major issues Cervical 01/20/2025 8:30 AM Cervical Left Rot % Max 100% Left Rot ROM 42 Left Rot Wgt 36 Left Rot Reps 30 Left Rot Monika RPE 5 Right Rot % Max 100% Right Rot ROM 42 Right Rot Wgt 36 Right Rot Reps 30 Right Rot Monika RPE 5 Objective Tests & Measures: Opted to repeat previous 100% Lext wts to allow for 20 reps, 15% increase C-Roto Tests performed today (see [facility] associationt for score and outcomes): : None Performed Today Warm Up: Movement Specific Training: Not Completed Mat Exercises Completed Treadmill: Minutes 3 Intensity Moderate ICE: Declined Lumbar 01/20/2025 8:30 AM Lumbar & Torso Set 1 Ext % Max 100% Set 1 Ext ROM 0-42 Set 1 Ext Wgt 66 Set 1 Ext Reps 20 Set 1 Ext Tul 120 Set 1 Ext Monika RPE 8 Set 2 Ext % Max 100% Set 2 Ext ROM 0-42 Set 2 Ext Wgt 66 Set 2 Ext Reps 20 Set 2 Ext Tul 120 Set 2 Monika RPE 9 Therapeutic Exercise (35 min): Patient performed isolated cervical rotation exercise, isolated lumbar extension exercise and auxillary exercises to improve muscle strength, to improve muscle endurance, to increase strength for seated posture, to increase strength for standing posture, to provide postural and scapular stability, increase strength and endurance levels of supporting spinal muscle groups and to strengthen posturalmuscles to decrease stresses on the spine to increase tolerance for Goals Below Reminders to slow reps down in Lext for better strength gains, fatigue & improvements to functional deficits too as program cont to progress. VC's for control of pace in cervical rotation today, VC's for form with Aux Ex's. Neuromuscular Re-Education (0 min): None performed today. Auxillary 01/20/2025 8:30 AM Auxillary Abs Wgt Set 1 45 Abs Reps Set 1 20 Abs Wgt Set 2 45 Abs Reps Set 2 0 Glute Wgt Set 1 65 Glute Reps Set 1 0 Glute Wgt Set 2 65 Glute Reps Set 2 0 Leg Press Wgt Set 1 160 Leg Press Reps Set 1 0 Leg Press Wgt Set 2 160 Leg Press Reps Set 2 0 Rows Wgt Set 1 35 Rows Reps Set 1 0 Rows Wgt Set 2 35 Rows Reps Set 2 0 Lats Wgt Set 1 45 Lats Reps Set 1 20 Lats Wgt Set 2 45 Lats Reps Set 2 20 Therapeutic Activities (0 min): Not performed today. Patient Education: Patient was instructed in specific review of patients progress and correlation of strength and function to increase their understanding of the benefits related to completing the [facility] program Reminders to push to full fatigue to build strength to muscles & see better improvements to Sx's as program progresses forward.No time for HEP Assessment: Reviewed goals today & pt feels Sx's have improved since the start of Medx therapy program but Sx's can still fluctuate depending on activities done, work duties are improving slowly but surely, Pt drove to [place] & has a car that drives itself so noticed it did not bother Backas much with this feature active but also noticed by end of car ride on way back to [place] LB was sore,but Making good objective gains that should lead to more reduction in Sx's & more improvements towards functional activities in the future. Pt had good understanding of POC for rehab today & pt follows VC's well, Pt had no aggravation of LBP/Sx's during or after workout today. Pt able to complete 20 reps for both sets Lext today, pt will benefit from further supervised therapy to achieve goals for increased spinal strength and daily function and is expected to continue to make progress towards goals through strengthening of the spinal muscles, promoting increased functional mobility and spinal stability. Goals: HEP/Independent Management: Demonstrate independence with HEP and self- management following each treatment session Met 01/20/25 ADL's: Resume previous sleep pattern without awakening due to symptoms in 12 weeks.Improving per pt01/20/25 Perform home management tasks with ease in 12 weeks. Some progress so far 01/20/25 Sit for greater than 4 hour(s) with minimal/no symptoms in 12 weeks. Improving about 1 hour 01/20/25 Transition in and out of bed with ease in 12 weeks. Some improvement but still Sx's 01/20/25 Wash and groom with ease in 12 weeks. Some progress per pt 01/20/25 Bend to mushroom picker item from floor in 12 weeks. Small improvements 01/20/25 Stand for at least 60 minutes without increased symptoms in 12 weeks. Progressing per pt 01/20/25 Transition sit to stand with normal positioning and weight bearing in 12 weeks. Some progress so far 01/20/25 Driving: Drive with ease and safety in 12 weeks. Progressing but Driving can still be problematic 01/20/25 Ambulation: Ambulate for 30 minutes without increased symptoms in 12 weeks. Some improvements 01/20/25 Work: Return to work without restrictions in 12 weeks. Improving but has not had to do the lifting duties yet Precautions/Other Information: Pt had f/u with pain management in early November, they advised trigger point injections and EMG to assess paresthesias in the hands (Pt hasn't scheduled it yet) Access Code: [email or web address] (text) L-Ext: #75, C-ext: #198 Strength Maintenance: unknown Need provider order/referral if still needing therapy after 02/13/25 - PNE started 12/12/24 Past PNBC pt in 2017 Anticipated visits to d/c: 7-13 Recommendations/Communication: Next visit, review HEP, no time today, Cext/T- Roto next Rx with appropriate Total timed code min: 35 Total treatment time: 35 Dionisio Luna PTA 01/20/2025, 9:40 AM documented in this encounter Plan of Treatment Not on file documented as of this encounter Visit Diagnoses Diagnosis Mechanical low back pain- Primary Lumbago Neck pain Cervicalgia documented in this encounter Care Teams It Lead Relationship Specialty Start Date End Date Shila Dsouza PA-C [address] [place] [address] PCP - General Physician Beamster 02/14/17 documented as of this encounter
--- OUTSIDE RECORDS SUMMARY | 2025-01-24 10:00 | XMS_ITS | Encounter Summary ---
Author Organization [employer] Address [address] [place] [address] Care Team Providers Care Supervisor Beet End Name Role Phone Shila Dsouza PA-C Primary Care Provider Reason for Visit * Reason Comments NECK PAIN BACK PAIN, LOW Encounter Details Date Type Department Care Team (Late st Contact Info) Description 01/24/2025 10:00 AM CDT Therapy Physical Therapy at 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 Cervical 01/24/2025 10:00 AM Cervical Set 1 Ext % Max 100% Set 1 Ext ROM 30-96 Set 1 Ext Wgt 183 Set 1 Ext Reps 30 Set 1 Ext Tul 170 Set 1 Ext Monika RPE 7/8 Set 2 Ext % Max 100% Set 2 Ext ROM 30-96 Set 2 Ext Wgt 183 Set 2 Ext Reps 30 Set 2 Ext Tul 190 Set 2 Ext Monika RPE 8 Objective Tests & Measures: 6# increase to both Cext/T-Roto & 10# increase to GH. Tests performed today (see reviewflowsheet for score and outcomes): : None Performed Today Warm Up: Movement Specific Training: Not Completed Mat Exercises Completed Bike: Minutes 4 Intensity Moderate ICE: Neck Lumbar 01/24/2025 10:00 AM Lumbar & Torso Left Rot % Max 100% Left Rot ROM 40 Left Rot Wgt 40 Left Rot Reps 30 Left Rot Mague RPE 7 Right Rot % Max 100% Right Rot ROM 40 Right Rot Wgt 40 Right Rot Reps 30 Right Rot Monika RPE 7 Therapeutic Exercise (39 min): Patient performed isolated torso rotation exercise, [...] Re-Education (0 min): None performed today. Auxillary 01/24/2025 10:00 AM Auxillary Abs Wgt Set 1 45 Abs Reps Set 1 30 Abs Wgt Set 2 45 Abs Reps Set 2 0 Glute Wgt Set 1 65 Glute Reps Set 1 20 Glute Wgt Set 2 75 Glute Reps Set 2 20 Leg Press Wgt Set 1 160 Leg Press Reps Set 1 0 Leg Press Wgt Set 2 160 Leg Press Reps Set 2 0 Rows Wgt Set 1 35 Rows Reps Set 1 20 Rows Wgt Set 2 35 Rows Reps Set 2 20 Lats Wgt Set 1 45 Lats Reps Set 1 0 Lats Wgt Set 2 45 Lats Reps Set 2 0 Therapeutic Activities (0 min): Not performed today. Patient Education: Patient was instructed in specific review of patients progress and correlation of strength and function to increase their understanding of the benefits related to completing the [facility] program Reminders to push to full fatigue to build strength to muscles & see better improvements to Sx's as program progresses forward. Assessment: Good effort today & pt motivated to feel better, reviewed goals today & Sx's doseem to be getting better slowly but surely, see below for updated info. Pt reached appropriate challenge from both Medx increases & Pt had no aggravation of Sx's during or after workout today. Pt had good understanding of POC for rehab today & pt follows VC's well. So pt will benefit from further supervised therapy [...] Some progress per pt 01/20/25 Bend to car pick up driver item from floor in 12 weeks. Small [...] (Pt hasn't scheduled it yet) Access Code: [email or web address] (text) L-Ext: #75, C-ext: #198 Strength Maintenance: unknown Need provider order/referral if still needing therapy after 02/13/25 - PNE started 12/12/24 Past PNBC pt in 2016 Anticipated visits to d/c: 6-12 Recommendations/Communication: Next visit, Instruct in antigravity exercises for cervical HEP Ex's once finished with rehab, 100% Lext & also 80%-100% C-Roto, Cont per POC. Total timed code min: 39 Total treatment time: 39 Dionisio Luna PTA 01/24/2025, 2:08 PM Cosigned by Lily Carrasco PT at 01/24/2025 2:37 PM CDT Associated attestation - Lily Carrasco, PT - 01/24/2025 2:37 PM CDT Observed treatment session. LABEL REMOVER has been instructed in and demonstrates skills necessary to carry out the stated treatment plan. Plan of care remains appropriate. Lily Carrasco, PT 01/24/2025, 2:37 PM 01/24/2025 documented in this encounter Plan of Treatment Not on file documented as of this encounter Visit Diagnoses Diagnosis Mechanical low back pain- Primary Lumbago Neck pain Cervicalgia documented in this encounter Care Teams Supervisor Beet End Relationship Specialty Start Date End Date Shila Dsouza, PAClaudeC [address] [place] [address] PCP - General Physician Demi Chef 02/14/17 documented as of this encounter
--- OUTSIDE RECORDS SUMMARY | 2025-01-27 08:30 | XMS_ITS | Encounter Summary ---
Author Organization [employer] Address [address] [place] [address] Care Team Providers Care Paperhanger Assistant Name Role Phone Shila Dsouza PA-C Primary Care Provider Reason for Visit * Reason Comments NECK PAIN BACK PAIN, LOW Encounter Details Date Type Department Care Team (Late st Contact Info) Description 01/27/2025 8:30 AM CDT Therapy Physical Therapy at [facility] Physical Therapy 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 Pt was able to get boat over the weekend to enjoy some boating & pt had very little issues with this activity. Cervical 01/27/2025 8:30 AM Cervical Left Rot % Max 100% Left Rot ROM 42 Left Rot Wgt 40 Left Rot Reps 25 Left Rot Monika RPE 5 Right Rot % Max 100% Right Rot ROM 42 Right Rot Wgt 40 Right Rot Reps 25 Right Rot Monika RPE 5 Objective Tests & Measures: 10% increase to 100% C-Roto & 4# increase to 100% Lext wts today as well as 5# increase to GH as well. Tests performed today (see reviewflowsheet for score and outcomes): : None Performed Today Warm Up: Movement Specific Training: Not Completed Mat Exercises Completed Treadmill: Minutes 3 Intensity Moderate ICE: Declined Lumbar 01/27/2025 8:30 AM Lumbar & Torso Set 1 Ext % Max 100% Set 1 Ext ROM 0-42 Set 1 Ext Wgt 70 Set 1 Ext Reps 21 Set 1 Ext Tul 145 Set 1 Ext Monika RPE 7 Set 2 Ext % Max 100% Set 2 Ext ROM 0-42 Set 2 Ext Wgt 70 Set 2 Ext Reps 17 Set 2 Ext Tul 90 Set 2 Monika RPE 8 Therapeutic Exercise (41 min): Patient performed isolated cervical rotation exercise, [...] Re-Education (0 min): None performed today. Auxillary 01/27/2025 8:30 AM Auxillary Abs Wgt Set 1 45 Abs Reps Set 1 20 Abs Wgt Set 2 45 Abs Reps Set 2 20 Glute Wgt Set 1 80 Glute Reps Set 1 20 Glute Wgt Set 2 80 Glute Reps Set 2 0 Leg Press [...] to Sx's as program progresses forward. Assessment: Pt cont Making good objective gains that should lead to more reduction in Sx's & more improvements towards functional activities in the future. No time for HEP due to late today, Instruct soon. Observed for proper form/pace with reps. Pt had good understanding of POC for rehab today& pt follows VC's well. No new Sx changes to report but Sx's cont to be more manageable, work duties going well for pt & Pt had no aggravation of Sx's during or after workout today. pt will benefit from further supervised therapy to achieve goals for increased spinal strength and daily function and is expected to continue to make progress towards goals through strengthening of the spinal m uscles, promoting increased functional mobility and spinal stability. [...] Some progress per pt 01/20/25 Bend to curing pickling packer item from floor in 12 weeks. Small [...] (Pt hasn't scheduled it yet) Access Code: [email or web address] (text) L-Ext: #75, C-ext: #198 Strength Maintenance: unknown Need provider order/referral if still needing therapy after 02/13/25 - PNE started 12/12/24 Past PNBC pt in 2017 Anticipated visits to d/c: 5-11 Recommendations/Communication: Instruct in gabriele chair exercises or alternative(SB) for Back HEP next Rx, 100% Cext/T-Roto again with appropriate increase. Total timed code min: 41 Total treatment time: 41 Dionisio Luna PTA 01/27/2025, 9:32 AM documented in this encounter Plan of Treatment Not on file documented as of this encounter Visit Diagnoses Diagnosis Mechanical low back pain- Primary Lumbago Neck pain Cervicalgia documented in this encounter Care Teams Paperhanger Assistant Relationship Specialty Start Date End Date Shila Dsouza PA-C [address] [place] [address] PCP - General Physician Ccnp 02/14/17 documented as of this encounter
--- OUTSIDE RECORDS SUMMARY | 2025-01-29 08:30 | XMS_ITS | Encounter Summary ---
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 Has been having some back pain since then, butthinks it's from work. Some neck pain as well from work most likely. No other notable changes. Cervical 01/29/2025 8:30 AM Cervical Set 1 Ext % Max 100% Set 1 Ext ROM 30-96 Set 1 Ext Wgt 198 Set 1 Ext Reps 30 Set 1 Ext Tul 206 Set 1 Ext Monika RPE 9 Set 2 Ext % Max 1 set, time. Objective Tests & Measures: Tests performed today (see reviewflowsheet for score and outcomes): : None Performed Today Warm Up: Movement Specific Training: Not Completed Treadmill: Minutes 3 Intensity mod ICE: none Lumbar 01/29/2025 8:30 AM Lumbar & Torso Left Rot % Max 100% Left Rot ROM 40 Left Rot Wgt 42 Left Rot Reps 20 Left Rot Mague RPE 7 Right Rot % Max 100% Right Rot ROM 40 Right Rot Wgt 42 Right Rot Reps 20 Right Rot Monika RPE 8 Therapeutic Exercise (26 min): Patient performed isolated torso rotation exercise, isolated cervical extension exercise and auxiliary exercises to improve muscle strength, to improve muscle endurance, increase strength and endurance levels of supporting spinal muscle groups and to strengthen postural muscles to decrease stresseson the spine to increase tolerance for goals listed below. Verbal cues instructed in proper form and control on Cervical Extension machine to avoid substitution and momentum. Intro to bahamian ball lumbar extension and gabriele chair lumbar extension as methods to maintain lumbarextensor strength post DC. Neuromuscular Re-Education (0 min): None performed today. Auxillary 01/29/2025 8:30 AM Auxillary Other No aux due to time. HEP Intro RC and bahamian ball lext. 1 x 8 of each. Therapeutic Activities (0 min): Not performed today. Patient Education: Use of HEP/maintenance plan to maintain strength and mobility gains post DC. Advised patient of upcoming need for referral to continue with therapy. Deadline of 02/13. Assessment: Patient has not had any practice with strength maintenance exercises so far in plan of care so discussed options for low back strength maintenance post DC. Introduced gabriele chair and bahamian ball lumbar extension as options that could be done at the gym or at home. Increased cervical extension weight with patient able to reach goal cervical extension weight today, and shows ability to continue with weight progression. Patient continues to show objective gains in strength based on weight progression and RPE ratings. Patient would benefit from further sessions to establish strength capacity as able, to ensure maximal spinal stability and functional gains made in the program, as wellas to ensure independence with strength maintenance plan prior to discharge. Goals: HEP/Independent Management: Demonstrate independence with HEP [...] Some progress per pt 01/20/25 Bend to sisal picker item from floor in 12 weeks. [...] (Pt hasn't scheduled it yet) Access Code: [email or web address] (text) L-Ext: #75, C-ext: #198 Strength Maintenance: Considering gym membership. Intro lumbar extension on bahamian ball and gabriele chair. 01/29/2025 Need provider order/referral if still needing therapy after 02/13/25, patient reminded on 01/29/2025 - PNE started 12/12/24 Past PNBC pt in 2016 Anticipated visits to d/c: 4-10 Recommendations/Communication: 100% cervical rotation and 100% lumbar extension next. AG x 4 intro.Continue treatment per PT POC. Total timed code min: 26 Total treatment time: 26 Jayesh Lopez PTA 01/28/2025, 9:17 AM documented in this encounter Plan of Treatment Not on file documented as of this encounter Visit Diagnoses Diagnosis Mechanical low back pain- Primary Lumbago Neck pain Cervicalgia documented in this encounter Care Teams Acrobatic Rigger Relationship Specialty Start Date End Date Shila Dsouza PA-C [address] [place] [address] PCP - General Physician Gun Tester 02/14/17 documented as of this encounter
--- OUTSIDE RECORDS SUMMARY | 2025-02-03 09:45 | XMS_ITS | Encounter Summary ---
Author Organization [employer] Address [address] [place] [address] Care Team Providers Care Explosives Detonator Name Role Phone Shila Dsouza PA-C Primary Care Provider Reason for Visit * Reason Comments NECK PAIN BACK PAIN, LOW Encounter Details Date Type Department Care Team (Late st Contact Info) Description 02/03/2025 9:45 AM CDT Therapy Physical Therapy at [facility] Physical Therapy [place] An[facility] [address] [place] [place] [address] Mela Jackman, FOXING CUTTING MACHINE OPERATOR [address] [place] [address] Mechanical low back pain (Primary Dx); Neck [...] 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 [place] lot of waves and thinks this is why having so much pain today, has been doing stretches from home exercise program. States is starting to have new and worsening symptoms like increased pinching like feeling and has sharp pain going from back to lateral thigh and has not had this before. Cervical 02/03/2025 9:45 AM Cervical Left Rot % Max 100% Left Rot ROM 42 Left Rot Wgt 44 Left Rot Reps 20 Left Rot Monika RPE 5 Right Rot % Max 100% Right Rot ROM 42 Right Rot Wgt 44 Right Rot Reps 20 Right Rot Monika RPE 5 Objective Tests & Measures: (see reviewflowsheet for score and outcomes) Warm Up: Treadmill: Minutes 5:00 Intensity Mod ICE: Lumbar pack Movement Specific Training: None performed today. Treatment today: 100% cervical rotation 42-42 & 44# Refused lumbar extension today. Lumbar 01/29/2025 8:30 AM Lumbar & Torso Left Rot % Max 100% Left Rot ROM 40 Left Rot Wgt 42 Left Rot Reps 20 Left Rot Mague RPE 7 Right Rot % Max 100% Right Rot ROM 40 Right Rot Wgt 42 Right Rot Reps 20 Right Rot Monika RPE 8 Therapeutic Exercise (24 min): Patient performed isolated cervical rotation and auxiliary exercises to improve muscle strength andendurance, increase strength and endurance levels of supporting spinal muscle groups and to strengthen postural muscles to decrease stresses on the spine allowing for increased tolerance for goals listed below. Monitored patient for proper form and control on cervical rotation for proper form, slowmovement and controlling eccentric motion to allow for reducing banging of head at end range reducing risk of headaches, as well as for proper form and control during auxiliary exercises to avoid substitution and which correct muscle group to fire with good speed and avoid momentum to increase strengthening. Neuromuscular Re-Education (0 min): None performed today. Auxillary 02/03/2025 9:45 AM Auxillary Rows Wgt Set 1 35 Rows Reps Set 1 20 Lats Wgt Set 1 45 Lats Reps Set 1 20 Therapeutic Activities (0 min): None performed today. Patient Education: Patient was educated on the benefits of increasing strength of spinal musculature leading to greater ability to complete daily tasks and activities with less pain symptoms. Discussed muscle soreness with patient and importance of continuing movement to reduce soreness and decrease duration of symptoms as well as to be mindful of how the body responds to exercises and instructed on use of ice for pain if needed. Assessment: Madison Chaudhari arrived late to appointment today, with complaints of increasing pain in low back radiating down right leg. Refused to try lumbar extension today but was okay doing cervicalrotation and some auxiliary exercises.Provided with ice for low back to reduce symptoms as well. Discussed following up with MD soon for referral soon. Patient remains a good candidate for continued skilled therapy and is expected to continue to make [...] Some progress per pt 01/20/25 Bend to cook pickled meat item from floor in 12 weeks. Small [...] (Pt hasn't scheduled it yet) Access Code: [email or web address] (text) L-Ext: #75, C-ext: #198 Strength Maintenance: Considering gym membership. Intro lumbar extension on saudi arabian ball and gabriele chair. 01/29/2025 Need provider order/referral if still needing therapy after 02/13/25, patient reminded on 01/29/2025 - PNE started 12/12/24 Past PNBC pt in 2017 Anticipated visits to d/c: 3-9 Recommendations/Communication: 100% cervical extension and 100% thoracic rotation next. AG x 4 intro as patient was late and was not able to get this in last treatment. Continue treatment per PT POC.[CHECK DATES, ALSO REFUSED L-EXT LAST TX] Total timed code min: 24 Total treatment time: 24 Mela Jackman PTA 02/03/2025, 10:28 AM documented in this encounter Plan of Treatment Not on file documented as of this encounter Visit Diagnoses Diagnosis Mechanical low back pain- Primary Lumbago Neck pain Cervicalgia documented in this encounter Care Teams Explosives Detonator Relationship Specialty Start Date End Date Shila Dsouza PA-C [address] [place] [address] PCP - General Physician Registrar Nurses' Registry 02/14/17 documented as of this encounter
--- OUTSIDE RECORDS SUMMARY | 2025-02-05 10:45 | XMS_ITS | Encounter Summary ---
Author Organization [employer] 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 Thinks its from the past [place] Cervical 02/05/2025 10:45 AM Cervical Set 1 Ext % Max 100 Set 1 Ext ROM 30-96 Set 1 Ext Wgt 206 Set 1 Ext Reps 20 Set 1 Ext Tul 118 Set 1 Ext Monika RPE 8 Set 2 Ext % Max 100 Set 2 Ext ROM 30-96 Set 2 Ext Wgt 206 Set 2 Ext Reps 20 Set 2 Ext Tul 111 Set 2 Ext Monika RPE 6 Objective Tests & Measures: Tests performed today (see reviewfloweet for score and outcomes): : None Performed Today Warm Up: Movement Specific Training: Not Completed Treadmill: Minutes 5 Intensity min ICE: na Lumbar 02/05/2025 10:45 AM Lumbar & Torso Left Rot % Max 80 Left Rot ROM 35 Left Rot Wgt 28 Left Rot Reps 20 Left Rot Mague RPE 9 Right Rot % Max 80 Right Rot ROM 35 Right Rot Wgt 28 Right Rot Reps 20 Right Rot Monika RPE 9 Therapeutic Exercise (40 min): Patient performed isolated torso rotation exercise, [...] Extension machine to avoid substitution and momentum. Verbal cues for proper form and control on Thoracic Rotation with instruction for isolating obliques and reducing substitution with upper extremity/neck muscles. Cues for slow speed for increased muscle fiber recruitment. Neuromuscular Re-Education (0 min): None performed today. Auxillary 02/05/2025 10:45 AM Auxillary Glute Wgt Set 1 60 Glute Reps Set 1 20 Leg Press Wgt Set 1 100 Leg Press Reps Set 1 20 Rows Wgt Set 1 35 Rows Reps Set 1 20 Therapeutic Activities (0 min): Not performed today. Patient Education: Patient was instructed in correlation of strength and function to increase their understanding of the benefits related to completing the [facility] Neck and Back program Assessment: Madison Chaudhari tolerated treatment well with good fatigue and challenge. Checked ROM andunable to change today. Due to increase in soreness patient wished to do sales service manager weights then previous sessions. Patient feels like progress towards goals has slowed due to lower back flare up but overall feels like she has made progress towards her goals. Patient would continue to benefit from skilled physical therapy to decrease pain and improve overall muscularly strengthen and stability for greater function in patient ADL's and work duties. Goals: HEP/Independent Management: Demonstrate independence with HEP [...] Some progress per pt 01/20/25 Bend to greens picker item from floor in 12 weeks. [...] (Pt hasn't scheduled it yet) Access Code: [email or web address] (text) L-Ext: #75, C-ext: #198 Strength Maintenance: Considering gym membership. Intro lumbar extension on montserratian ball and gabriele chair. 01/29/2025 Need provider order/referral if still needing therapy after 02/13/25, patient reminded on 01/29/2025 - PNE started 12/12/24 Past PNBC pt in 2017 Anticipated visits to d/c: 2-8 Recommendations/Communication: 80% cervical rotation and 100% lumbar extension next. Continue treatment per PT POC. Total timed code min: 40 Total treatment time: 40 Sergey Carrillo PTA 02/04/2025, 11:26 AM Cosigned by Lily Carrasco, PT at 02/05/2025 1:15 PM CDT Associated attestation - Lily Carrasco PT - 02/05/2025 1:15 PM CDT Observed treatment session. FLUORESCENT SOLUTION MIXER has been instructed in and demonstrates skills necessary to carry out the stated treatment plan. Plan of care remains appropriate. Lily Carrasco PT 02/05/2025, 1:15 PM 02/05/2025 documented in this encounter Plan of Treatment Not on file documented as of this encounter Visit Diagnoses Diagnosis Mechanical low back pain- Primary Lumbago Neck pain Cervicalgia documented in this encounter Care Teams Ripsaw Grader Relationship Specialty Start Date End Date Shila Dsouza PA-C [address] [place] [address] PCP - General Physician Marketing Coordinator 02/14/17 documented as of this encounter
--- OUTSIDE RECORDS SUMMARY | 2025-02-10 08:30 | XMS_ITS | Encounter Summary ---
Author Organization [employer] Address [address] [place] [address] Care Team Providers Care Adult Services Librarian Name Role Phone Shila Dsouza PA-C Primary Care Provider [phone] Reason for Visit * Reason Comments NECK PAIN BACK PAIN, LOW Encounter Details Date Type Department Care Team (Late st Contact Info) Description 02/10/2025 8:30 AM CDT Therapy Physical Therapy at [facility] Physical Therapy [facility] [address] [place] [address] Moises Hidalgo, PATIENT CARE PROVIDER [address] [facility], [address] [id number] Mechanical low back pain (Primary Dx); Neck [...] 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 Was on Prednisone pack after swimming soreness. Willing to restart lumbar extension today. Wants to get back to water skiing. Cervical 02/10/2025 8:30 AM Cervical Left Rot % Max 100% Left Rot ROM 42 Left Rot Wgt 50 Left Rot Reps 30 Left Rot Monika RPE 3-4 Right Rot % Max 100% Right Rot ROM 42 Right Rot Wgt 50 Right Rot Reps 30 Right Rot Monika RPE 5 Objective Tests & Measures: Tests performed today (see reviewfloweet for score and outcomes): : None Performed Today Warm Up: Treadmill: Minutes 4 Intensity mod Lumbar 02/10/2025 8:30 AM Lumbar & Torso Set 1 Ext % Max 100% Set 1 Ext ROM 0-42 Set 1 Ext Wgt 70 Set 1 Ext Reps 20 Set 1 Ext Tul 132 Set 1 Ext Monika RPE near max Set 2 Ext % Max 100% Set 2 Ext ROM 0-42 Set 2 Ext Wgt 70 Set 2 Ext Reps 15 Set 2 Ext Tul 85 Set 2 Monika RPE self limited Therapeutic Exercise (33 min): Patient performed isolated lumbar extension exercise, isolated cervical rotation exercise and auxillary exercises to improve muscle strength, to improve muscle endurance, increase strength and endurance levels of supporting spinal muscle groups and to strengthen postural muscles to decrease stresses on the spine to increase tolerance for goals listed below. Verbal cues needed for proper form and control on Lumbar Extension machine with instruction to avoid substitution with other muscle groups and to facilitate correct muscle firing sequence and to avoid momentum, improper form and too fast with reps. Verbal cues instructed in proper form on Cervical Rotation machine to have good control and speed on all reps, instructed to avoid hitting the ends too hard and to help avoid headaches. Neuromuscular Re-Education (0 min): None performed today. Auxillary 02/10/2025 8:30 AM Auxillary Abs Wgt Set 1 45 Abs Reps Set 1 30 Glute Wgt Set 1 70 Glute Reps Set 1 32 Leg Press Reps Set 1 time Rows Wgt Set 1 40 Rows Reps Set 1 30 Lats Wgt Set 1 45 Lats Reps Set 1 30 Other Restarted Lext HEP RC reviewed frequency at home once discharged. Therapeutic Activities (0 min): Not performed today. Patient Education: Reviewed and restarted lumbar extension. Assessment: Madison Chaudhari tolerated treatment well with good fatigue on lumbar extension and cervical rotation workout. Only had time for 1 set on auxiliary machines due to pt running late today. Checked ROM and no change today. Observed form and speed on all reps to avoid substitution, proper positioning and cues as needed on form and speed on reps. Gives good effort in machines and follows cues well. Good effort with lumbar extension today, worked hard, on Prednisone for couple more days. Patient would continue to benefit from skilled physical therapy to decrease pain and improve strengthen and stability for greater function. Goals: HEP/Independent Management: Demonstrate independence with HEP [...] Some progress per pt 01/20/25 Bend to grain picker item from floor in 12 weeks. [...] (Pt hasn't scheduled it yet) Access Code: [email or web address] (text) L-Ext: #75, C-ext: #198 Strength Maintenance: Considering gym membership. Intro lumbar extension on cuban ball and gabriele chair. 01/29/2025 Need provider order/referral if still needing therapy after 02/13/25, patient reminded on 01/29/2025 - PNE started 12/12/24 Past PNBC pt in 2017 Anticipated visits to d/c: 2-7 Recommendations/Communication: 100% cervical extension and 80% thoracic rotation next. Continue treatment per PT POC. Total timed code min: 33 Total treatment time: 33 Moises Hidalgo PTA 02/07/2025, 9:18 AM documented in this encounter Plan of Treatment Not on file documented as of this encounter Visit Diagnoses Diagnosis Mechanical low back pain- Primary Lumbago Neck pain Cervicalgia documented in this encounter Care Teams Adult Services Librarian Relationship Specialty Start Date End Date Shila Dsouza PA-C [address] [place] [address] PCP - General Physician Maintenance Man 02/14/17 documented as of this encounter
--- OUTSIDE RECORDS SUMMARY | 2025-02-13 17:57 | XMS_ITS | Clinical Summary ---
Author Organization [facility] Address [address] [place] [address] Care Team Providers Care Wet Milling Wheel Operator Name Role Phone Shila Dsouza PA-C Primary Care Provider [phone] Source Comments You are receiving this document as you are listed as the primary care provider,follow-up provider, or the patient has been referred to you for consultation.This is in compliance with the Medicare and[facility] E[facility] Incentive [facility],which states Providers who transition their patient to another setting of careor provider of care or refers their patient to another provider of care shouldprovide summary care record for each transition of care or referral. [facility] Allergies No known active allergies Medications buPROPion (BUDEPRION XL) 300 MG 24 hour release tablet Take 1 Tablet (300 mg) by mouth every morning. 2 Active B Complex Vitamins (VITAMIN B-COMPLEX) TABS Take 1 Tablet by mouth. Active calcium carbonate (TUMS) 500 MG chewable tablet Chew and swallow 2 Tablets (1,000 mg) by mouth. Active clonazePAM (KLONOPIN) 0.5 MG tablet Take 1 Tablet (0.5 mg) by mouth daily as needed. Active cyclobenzaprine (FLEXERIL) 10 MG tablet Take 1 Tablet (10 mg) by mouth three times a day. 4 Active DULoxetine (CYMBALTA) 20 MG capsule Take 1 Capsule (20 mg) by mouth daily. 4 Active lidocaine (LIDODERM) 5 % patch Apply 1 Patch to skin every 24 hours. 4 Active multivitamin, stress formula (VITAMIN B COMPLX WITH C) Take 1 Tablet by mouth daily. Active Kirkland-3 Fatty Acids (FISH OIL) 1000 MG capsule Take 2 Capsules (2,000 mg) by mouth. Active oxyCODONE-aceta minophen (PERCOCET) 5-325 MG tablet Take 1 Tablet by mouth. 4 Active tretinoin (RETIN-A) 0.025 % cream Apply topically daily at bedtime. 4 Active buPROPion (WELLBUTRIN XL) 150 MG 24 hour release tablet Take 1 Tablet (150 mg) by mouth daily. Active gabapentin (NEURONTIN) 100 MG capsule Take 1 Capsule (100 mg) by mouth three times a day. 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 Idiopathic hypersomnolence 08/24/2012 Depressive disorder 07/05/2007 Overview (03/22/2017): Depression NOS Anxiety state 07/05/2007 Overview (03/22/2017): Anxiety NOS Hyperlipidemia Hypersomnolence disorder Overview (03/03/2016): idiopathic Resolved Problems Problem Noted Date Diagnosed Date Resolved Date Papilledema of right eye 12/06/2017 Overview (12/06/2017): Found on eye exam by Dr. Fareed Crespo at [facility] on 11/29/17. Chest pain 11/29/2012 11/22/2017 Overview (03/22/2017): Chest [...] Encounters Date Type Department Care Team Description 02/10/2025 8:30 AM CDT Therapy Physical Therapy at [facility] Physical Therapy [facility] [address] [place] [address] Moises Hidalgo, HEDGE FUND PRINCIPAL Mechanical low back pain (Primary Dx); Neck pain 02/05/2025 10:45 AM CDT Therapy Physical Therapy at [facility] Physical Therapy [address] [address] Sergey Carrillo, HEDGE FUND PRINCIPAL Mechanical low back pain (Primary Dx); Neck pain 02/03/2025 9:45 AM CDT Therapy Physical Therapy at [facility] Physical [address] [address] Mela Jackman, HEDGE FUND PRINCIPAL Mechanical low back pain (Primary Dx); Neck pain 01/29/2025 8:30 AM CDT Therapy Physical Therapy at [facility] Physical [address] [address] Jayesh Lopez, HEDGE FUND PRINCIPAL Mechanical low back pain (Primary Dx); Neck pain 01/27/2025 8:30 AM CDT Therapy Physical Therapy at [address] [address] Dionisio Luna, HEDGE FUND PRINCIPAL Mechanical low back pain (Primary Dx); Neck pain 01/24/2025 10:00 AM CDT Therapy Physical Therapy at [address] [address] Dionisio Luna, HEDGE FUND PRINCIPAL Mechanical low back pain (Primary Dx); Neck pain 01/20/2025 8:30 AM CDT Therapy Physical Therapy at [facility] Physical [address] [address] Dionisio Luna, HEDGE FUND PRINCIPAL Mechanical low back pain (Primary Dx); Neck pain 01/17/2025 10:00 AM CDT Therapy Physical Therapy at [facility] Physical [address] [address] Dionisio Luna, HEDGE FUND PRINCIPAL Mechanical low back pain (Primary Dx); Neck pain 01/15/2025 8:30 AM CDT Therapy Physical Therapy at [facility] Physical [address] [address] Maritza Westbrook, PT Mechanical low back pain (Primary Dx); Neck pain 01/08/2025 Telephone Physical Therapy at [address] [address] Chiqui Morel, HEDGE FUND PRINCIPAL BACK PAIN; NECK PAIN 01/01/2025 8:30 AM CDT Therapy Physical Therapy at [address] [address] Maritza Westbrook, PT Mechanical low back pain (Primary Dx); Neck pain 12/18/2024 9:15 AM CDT Therapy Physical Therapy at [address] [address] Maritza Westbrook, PT Mechanical low back pain (Primary Dx); Neck pain 12/16/2024 8:30 AM CDT Therapy Physical Therapy at [address] [address] Maritza Westbrook, PT Dionisio Luna, HEDGE FUND PRINCIPAL Chronic bilateral low back pain without sciatica (Primary Dx); Neck pain; Back stiffness 12/12/2024 1:30 PM CDT Therapy Physical Therapy at [address] [address] Jayesh Berry, PT Chronic bilateral low back pain without sciatica; Neck pain 12/10/2024 1:00 PM CDT Therapy Physical Therapy at [address] [address] Melvina Lovett, HEDGE FUND PRINCIPAL Chronic bilateral low back pain without sciatica (Primary Dx); Back stiffness 12/02/2024 8:30 AM CDT Therapy Physical Therapy at [address] [address] Mosies Hidalgo, HEDGE FUND PRINCIPAL Chronic bilateral low back pain without sciatica (Primary Dx) 11/25/2024 5:15 PM CDT Therapy Physical Therapy at [address] [place] [address] Jayesh Berry A, PT Chronic bilateral low back pain without sciatica (Primary Dx); Back stiffness 11/15/2024 8:15 AM CDT Therapy [facility], Physical Therapy [address] [facility] [place] [address] KraigCoty butler O, PT Chronic bilateral low back pain without sciatica (Primary Dx); Back stiffness from Last 3 Months Immunizations Immunization Administration Dates Next Due DTP 03/28/1985 Flu Vac Preserv Free (3+yrs) 06/04/2012,05/31/20 07 HepA Adult (19+ yrs) 11/22/2017,05/15/2015 HepB Adult (Engerix-B, 20+ y rs, 3 dose series) 05/28/1997,08/15/1994,06/13/1994 Influenza IIV4 (Quadrivalent ) 0.5mL (50707) 07/13/2017,06/03/2016,05/14/2015,2012 MMR 02/28/1992 OPV, Trivalent (Orimune or [...] Maternal Grandfather Relation Name Status Comments Father CA Mother (Age 56) bone cance r Brother [...] 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 file Not on file Not on file Last Filed Vital Signs Vital Sign Reading Time Taken Comments Blood Pressure 140/74 09/12/2024 12:28 AM DRAFTER STRUCTURAL Pulse 93 09/12/2024 12:28 AM DRAFTER STRUCTURAL Temperature 36.1 C (96.9 F) 09/12/2024 12:28 AM DRAFTER STRUCTURAL Respiratory Rate 18 09/12/2024 12:28 AM DRAFTER STRUCTURAL Oxygen Saturation 98% 09/12/2024 12:28 AM DRAFTER STRUCTURAL Inhaled Oxygen Concentration - - Weight 89.8 kg (198 lb) 09/11/2024 7:53 PM DRAFTER STRUCTURAL Height 165.1 cm (5' 5) 09/11/2024 7:53 PM DRAFTER STRUCTURAL Body Mass Index 32.95 09/11/2024 7:53 PM DRAFTER STRUCTURAL Plan of Treatment Health Maintenance Due Date Last Done Comments Colon Cancer Screening Plan Due 1979 Diabetes Screening- (based on age and BMI) 1979 Hep C Screening (Preventive Services) 1979 IPV (Polio) Vaccine (2 of 3 - 4-dose series) 12/20/1984 11/22/1984, 11/22/1984 HIV Screening (Preventive Services) 1995 Adult Preventive Visit 1997 Cervical Cancer Screening 10/09/20202017 (Completed), 07/18/2007, 03/09/2001, Additional history exists DTaP/Tdap/Td Vaccine (5 - Tdap) 01/08/2021 01/08/2011, 07/18/2007, 06/13/1994, Additional history exists Mammogram 12/23/2023 12/22/2022, 02/10/2014 Cholesterol 01/19/2025 01/20/2020, 11/28, 06/04/2012, Additional history exists Influenza Vaccine (#1) 2025 , 07/19/2023, 05/30/2022, Additional history exists Zoster/Shingles Vaccine (1 of 2) 2029 HepB Vaccine Completed 05/28/1997, 07/31, 06/13/1994 HepA Vaccine Completed 11/22/2017, 05/15/2015 COVID-19 Vaccine Completed 08/12/2024, , 05/30/2022, Additional history exists HPV Vaccine Aged Out No longer eligi ble based on patient's age to complete this topic Hib Vaccine Aged Out No longer eligi ble based on patient's age to complete this topic MCV4 Vaccine Aged Out No longer eligi ble based on patient's age to complete this topic Meningococcal B Vaccine Aged Out No l onger eligible based on patient's age to complete this topic Pneumococcal Vaccine Aged Out No long er eligible based on patient's age to complete this topic Procedures Procedure Name Priority Date/Time Associated Diagnosis Comments LIPID PANEL & DIRECT LDL (IF NEEDED) Routine 01/20/2020 12:02 PM CDT Generalized anxiety disorder Encounter for long-term (current) use of other medications ANATOMICAL PATH LIQUID BASED Routine 07/18/2007 7:15 AM DRAFTER STRUCTURAL from Last 3 Months or Most Recently Relevant to Health Maintenance Results * (ABNORMAL) Lipid Panel and Direct LDL (If Needed) (01/20/2020 12:02 PM CDT) Cholesterol 239(H) 0 - 199 mg/dL 01/20/2020 12:28 PM [facility] Triglyceride 206(H) <=149 mg/dL 01/20/2020 12:28 PM [facility] HDL Cholesterol 43 >=40 mg/dL 0 12:28 PM [facility] LDL, Calculated 155(H) <130 mg/dL 0 12:28 PM [facility] Non HDL Chol, Calculated 196 mg/dL 01/20/2020 12:28 PM [facility] Cholesterol/HDL Ratio 5.6 01/20/2020 12:28 PM [facility] Hours Fasting 16 01/20/2020 12:28 PM [facility] Blood Venipuncture / Unknown 01/20/2020 12:02 PM CDT 01/20/2020 12:02 PM T GINETTE Buck APRN LAB_1 Final Result Performing Organization Address [facility] de Phone Number [facility] [address] [place] [address], [facility] [phone] * Pap Smear (07/18/2007 7:15 AM DRAFTER STRUCTURAL) PAP Smear Liquid Based SEE TEXT No normal range HP CONVERSION Comment: Patient: JOSEPHINEMADISON VASQUEZ CERVICAL CYTOLOGY REPORT Pathology # [id number] Date Obtained: Date Received: CYTOLOGIC IMPRESSION: Negative for intraepithelial lesion or malignancy. Verified 07/23/07 by: SL (electronic signature) ADDITIONAL DATA LMP: CLINICAL HIST LIQUID BASED PAP CERVICAL SPECIMEN ADEQUACY: Satisfactory. ENDOCERVICAL CELLS: Present. 07/18/2007 7:15 AM DRAFTER STRUCTURAL Ila Masterson MD LAB_1 Final R esult Performing Organization Address City/[facility] Co de Phone Number HP CONVERSION from Last 3 Months or Most Recently Relevant to Health Maintenance Insurance [facility] [employer] [id number] [facility] [id number] [facility] [id number] [facility] [employer] Care Teams Wet Milling Wheel Operator Relationship Specialty Start Date End Date Shila Dsouza PAClaudeC [address] [place] [address] PCP - General Physician Rotary Shear Worker Helper 02/14/17
--- OUTSIDE RECORDS SUMMARY | 2025-02-13 17:57 | XMS_ITS | Clinical Summary ---
Author Organization [place] Address [facility] [place] [address] Care Team Providers Care Quoter Name Role Phone Jared Murillo MD Primary Care Provider [phone] Jared Murillo MD Unavailable Allergies No known [...] isorder 08/20/2018 Excessive daytime sleepiness 08/20/2018 Immunizations Immunization Administration Dates Next Due COVID-19 Vaccine (Dario) 10/03/2020 Hepatitis A (VAQTA)(ADULT 19+) 11/22/2017,2014 Hepatitis B, Adult (Energix-B/Recombivax HB) 05/28/1997,08/15/1994,06/13/1994 Historical DTP/aP 03/28/1985 Influenza (prior to 2023) 06/04/2012,05/31/2007 Influenza Vaccine >6 months,quad, PF ,06/23/2019,07/13/2017,2015,05/14/2015,04/24/2013 Influenza Vaccine IM Ages 6- 35 Months 4 Valent (PF) 04/24/2013 MMR (MMRII) 02/28/1992 Mantoux Tuberculin Skin Test 08/25/2015 Measles [...] and Family Once a week 09/05/2019 Attends Religion Services Never 09/05 Active Member of Clubs [...] Answer Date Recorded PHQ-2 Score 1 01/15/2024 [facility] - Occupational [...] Master's degree (e.g., MA, MS, Hola, MEd, SUPERINTENDENT MAINTENANCE [employer], [place]) 09/05/2019 Comments No Sex and Gender Information Value Date Recorded Sex Assigned at Female 11/08/2021 8:44 PM CDT Legal Sex Female 4:39 AM WINDOWS AND DOORS INSTALLER Gender Identity Female 11/08/2021 8:44 PM CDT [...] CANCER SCREENING 1989 HEPATITIS C SCREENING 1997 PNEUMOCOCCAL VACCINE: PEDIATRICS (0 to 5 YEARS) AND AT-RISK PATIENTS (6 to 49 YEARS) (1 of 2 - PCV) 1998 LIPID 08/20/2019 08/20/2018 DTAP/TDAP/TD VACCINE (5 - Td or Tdap) 01/08/2021 01/08/2011, 07/18/2007, 06/13/1994, Additional history exists YEARLY PREVENTIVE VISIT 12/17/2022 12/18/19 22, 06/22/2020, 08/20/2018 DIABETES SCREENING 05/10/2023 05/10/2020, 0 09/05/2019, 08/01/2019, Additional history exists COVID-19 VACCINE ( season) 2024 07/19/2023, 05/30/2022, 08/06/2021, Additional history exists PHQ-9 07/16/2024 01/15/2024, 05/2 10/2022, 12/21/2022, Additional history exists HPV TEST 12/17/2024 12/17/2021 PAP 12/17/2024 12/17/2021, 02/28/2018 MAMMO SCREENING 12/22/2024 12/22/2022, 02/10/2014 ANNUAL REVIEW OF HM ORDERS 01/14/2025 01/15/2024 INFLUENZA VACCINE (#1) 2025 , 05/30/2022, 06/30/2021, Additional history exists ADVANCE CARE PLANNING 12/17/2026 12/17/2021 ZOSTER VACCINE (1 of 2) 2029 HEPATITIS B VACCINE Completed 05/28/1997, 08/15/1994, 06/13/1994 HIV SCREENING Completed 07/31/2014 DEPRESSION ACTION PLAN Completed 12/25/2018 HPV VACCINE Aged Out No longer eligi ble based on patient's age to complete this topic MENINGITIS VACCINE Aged Out No longer eligible based on [...] DIRECT LDL PANEL Routine 08/20/2018 11:15 AM WINDOWS AND DOORS INSTALLER Routine general medical examination at a health [...] radiographic evidence of malignancy. Jared Murillo MD IM MAMMOGRAPHY ORDERABLES Final Result * Pap screen with HPV - recommended age 30 - 65 years (12/17/2021 3:39 PM CDT) Interpretation Negative for Intraepithelial Lesion or Malignancy (NILM) 12/21/2021 1:20 PM CDT [facility] at 1320 CDT Comment Papanicolaou Test Limitations: Cervical cytology is [...] component of this testing was completed at [facility] 12/21/2021 1:20 PM CDT [facility] Brushing CERVIX UTERI STRUCTURE / Unknown 12/17/2021 3:39 PM CDT 12/17/2021 4:17 PM CDT us Nithin Abbott MD LAB - FRANCISCA AP Final Result [facility] Specialty Lab [address] [facility], [address] [address], [place] [phone] * HPV High Risk Types DNA Cervical (12/17/2021 3:39 PM CDT) Other HR HPV Negative Negative 12/23/2021 7:05 AM CDT [facility] HPV16 DNA Negative Negative 12/23/2021 7:05 AM CDT [facility] HPV18 DNA Negative Negative 12/23/2021 7:05 AM CDT [facility] FINAL DIAGNOSIS This patient's sample is negative for HPV DNA. This test was developed and its performance characteristics determined by the [facility], Molecular Diagnostics Laboratory. It has not [...] LAB - BLOOD ORDERABLES Final R esult [facility] Molecular Diagnostics [address] [facility] [address] [facility], [address] [address], [place] [phone] * Basic metabolic panel (05/10/2020 8:46 PM CDT) Sodium 138 133 - 144 mmol/L 05/10/2020 9:[address] [facility] Potassium 3.7 3.4 - 5.3 mmol/L 05/10/2020 9:[address] [facility] Chloride 106 94 - 109 mmol/L 05/10/2020 9:[address] [facility] Carbon Dioxide 26 20 - 32 mmol/L 05/10/2020 9:22 PM [facility] Anion Gap 6 3 - 14 mmol/L 05/10/2020 9:22 PM [facility] Glucose 91 70 - 99 mg/dL 05/10/2020 9:22 PM [facility] Urea Nitrogen 12 7 - 30 mg/dL 05/10/2020 9:22 PM [facility] Creatinine 0.77 0.52 - 1.04 mg/dL 05/10/2020 9:22 PM [facility] GFR Estimate >90 >60 mL/min/{1. 73_m2} 05/10/2020 9:22 PM [facility] Comment: Non GFR Calc Starting 07/17/2018, serum creatinine based estimated GFR (eGFR) will be calculated using the Chronic Kidney Disease Epidemiology Collaboration (CKD-EPI) equation. GFR Estimate If Black >90 >60 mL/min/{1. 73_m2} 05/10/2020 9:22 PM T [facility] Comment: GFR Calc Starting 07/17/2018, serum creatinine based estimated GFR (eGFR) will be calculated using the Chronic Kidney Disease Epidemiology Collaboration (CKD-EPI) equation. Calcium 9.0 8.5 - 10.1 mg/dL 05/10/2020 9:22 PM CDT [facility] Blood specimen (specimen) 05/10/2020 8:46 PM CDT 05/10/2020 8:47 PM CDT us Ken Lino MD LAB - BLOOD ORDERABLES Final R esult [facility] [address] [place] [address], [place] [phone] [facility] [address] [place] [address], [place] [phone] * (ABNORMAL) Lipid panel reflex to direct LDL Fasting (08/20/2018 11:15 AM WINDOWS AND DOORS INSTALLER) Cholesterol 243(H) <200 mg/dL 08/21/2018 8:04 AM WINDOWS AND DOORS INSTALLER [facility] Comment:Desirable: <200 mg/d l Triglycerides 249(H) <150 mg/dL 08/21/2018 8:04 AM [facility] Comment: Borderline high: 150-199 mg/dl High: 200-499 mg/dl Very high: >499 mg/dl Fasting specimen HDL Cholesterol 48(L) >49 mg/dL 9 8:05 AM [facility] LDL Cholesterol Calculated 145(H) <100 mg/dL 08/21/2018 8:05 AM WINDOWS AND DOORS INSTALLER [facility] Comment: Above desirable: 100-129 mg/dl Borderline High: 130-159 mg/dL High: 160-189 mg/dL Very high: >189 mg/dl Non HDL Cholesterol 195(H) <130 mg/dL 08/21/2018 8:05 AM WINDOWS AND DOORS INSTALLER [facility] Comment: Above Desirable: 130-159 mg/dl Borderline high: 160-189 mg/dl High: 190-219 mg/dl Very high: >219 mg/dl Blood specimen (specimen) 08/20/2018 11:15 AM WINDOWS AND DOORS INSTALLER 08/20/2018 11:16 AM WINDOWS AND DOORS INSTALLER us Jared Murillo MD LAB - BLOOD ORDERABLES Final Res ult [facility] [address] [place] [address] from Last 3 Months or Most Recently Relevant to Health Maintenance [place] Care Teams Quoter Relationship Specialty Start Date End Date Jared Murillo MD PCP - General Family Practice 12/25/18 [place] [address] [place] [address] Assigned PCP 02/20/24
--- OUTSIDE RECORDS SUMMARY | 2025-02-13 17:57 | XMS_ITS | Clinical Summary ---
Author Organization [facility] Address [address] [place] [address] Care Team Providers Care Director Of Acquisition Marketing Name Role Phone Unknown, Dr Primary Care [...] on file Legal Sex Female 7:26 AM BULLET ASSEMBLY PRESS OPERATOR Gender Identity Not on file Sexual Orientation [...] Health Maintenance Due Date Last Done Comments Tetanus booster 1990 Depression screening for age 12+ 1991 HIV for age 15-65 1994 Hepatitis C screening for ag e 18-79 1997 Hepatitis B series for 19+ ( 1 of 3 - 19+ 3-dose series) 1998 Pap test for age 21-65 2000 BMI (ht and wt on same day) for age 18+ 04/08/2022 04/08/2021 COVID-19 vaccine series (2 2023- season) 2024 10/03/2020 Colonoscopy through age 75 2024 Lipids for age 45-75 2024 Mammogram for age 45-75 2024 Influenza Vaccine (#1) 2025 Pneumococcal series for age 6-49 Aged Out No longer eligible based on patient's age to complete this topic Insurance [facility] Care Teams Director Of Acquisition Marketing Relationship Specialty Start Date End Date Unknown, PCP - General 07/26/07
--- OUTSIDE RECORDS SUMMARY | 2025-02-13 17:57 | XMS_ITS | Encounter Summary ---
Author Organization [place] Address [facility] [place] [address] Care Team Providers Care Weekday Babysitter Name Role Phone Jared Murillo MD Primary Care Provider [phone] Marc Conn PA-C Unavailable [phone] Sabina Lowery MD Unavailable + Nithin Abbott MD Unavailable [phone] Marc Conn PA-C Unavailable [phone] Suzette Hough [facility] Unavailable [phone] Sabina Lowery MD Unavailable + Marc Conn PA-C Unavailable [phone] Sabina Lowery MD Unavailable + Aniket Curiel MD Unavailable Jared Murillo MD Unavailable Encounter Details Date Type Department Care Team (Late st Contact Info) Description 05/20/2021 [facility] [address] [phone] Savannah Costello Social History Tobacco Use Types [...] and Family Once a week 09/05/2019 Attends Mormonism Services Never 09/05 Active Member of Clubs [...] Answer Date Recorded PHQ-2 Score 2 12/04/2020 [facility] - [...] Master's degree (e.g., MA, MS, Hola, MEd, SUPERVISOR LACE TEARING, [place]) 09/05/2019 Comments No Sex and Gender Information Value Date Recorded Sex Assigned at Female 11/08/2021 8:44 PM CDT Legal Sex Female 4:39 AM COMPLIANCE COORDINATOR Gender Identity Female 11/08/2021 8:44 PM CDT Sexual Orientation Straight 11/08/2021 8: 44 PM CDT documented as of this encounter Plan of Treatment Not on file documented as of this encounter Visit Diagnoses Not on filedocumented in this encounter Additional Health Concerns Assessment Noted Time PHQ-9 Depression Total Score: 13 020 7:03 AM COMPLIANCE COORDINATOR documented as of this encounter Care Teams Weekday Babysitter Relationship Specialty Start Date End Date Jared Murillo MD PCP - General Family Practice 12/25/18 Marc Conn PA-C [address] [place] [address] Assigned PCP 12/24/20 08/07/21 Sabina Lowery MD [facility] [address] [place] [address] [id number] Assigned PCP 08/08/21 12/24/21 Nithin Abbott MD [address] [facility] [address] [place] [address] Assigned OBGYN Provider 12/25/2105/20 Marc Conn PA-C [address] [place] [address] [id number] Assigned PCP 12/25/21 06/10/22 Suzette Hough CNM [address] [place] [address] [address] [place], [place] [id number] Assigned OBGYN Provider 05/21/22 Sabina Lowery MD [facility] [address] [place] [address] [address] [place] [address] Assigned PCP 06/11/22 07/15/22 Marc Conn PA-C [address] [place] [address] Assigned PCP 07/16/22 09/23/22 Sabina Lowery MD [address] [facility] [address] [place] [address] Assigned PCP 09/24/22 12/23/22 Aniket Curiel MD [address] [place] [address] Assigned PCP 12/24/22 02/19/24 [place] [address] [place] [address] Assigned PCP 02/20/24 documented as of this encounter
--- OUTSIDE RECORDS SUMMARY | 2025-02-13 17:57 | XMS_ITS | Encounter Summary ---
Author Organization [employer] Address [address] [place] [address] Care Team Providers Care Personal Vehicle Advisor Name Role Phone Shila Dsouza PA-C Primary Care Provider [phone] Reason for Visit * Reason Comments BACK PAIN NECK PAIN Encounter Details Date Type Department Care Team (Late st Contact Info) Description 01/08/2025 Telephone Physical Therapy at [facility] Physical Therapy [facility] [address] [place], [place] [id number] Chiqui Morel, PIPE WASHER [address] [place] [address] BACK PAIN; NECK PAIN Social History Tobacco Use Types Packs/Day Years [...] 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 Was also provided information on canceling ahead of time (48 hours in advance) as well as the no-show policy. Included the appointment line to refer to for future cancellations and rescheduling needs. documented in this encounter Plan of Treatment Not on file documented as of this encounter Visit Diagnoses Not on filedocumented in this encounter Care Teams Personal Vehicle Advisor Relationship Specialty Start Date End Date Shila Dsouza PA-C [address] [place] [address] PCP - General Physician Junior Loan Processor 02/14/17 documented as of this encounter
--- OUTSIDE RECORDS SUMMARY | 2025-02-13 17:57 | XMS_ITS | Encounter Summary ---
Author Organization [place] Address Critical access hospital0 [facility] [place] [address] Care Team Providers Care Rug Measurer Name Role Phone Jared Murillo MD Primary Care Provider [phone] Marc Conn PA-C Unavailable [phone] Sabina Lowery MD Unavailable + Nithin Abbott MD Unavailable [phone] Marc Conn PA-C Unavailable [phone] Suzette Hough [facility] Unavailable Sabina Lowery MD Unavailable + Marc Conn PA-C Unavailable [phone] Sabina Lowery MD Unavailable + Aniket Curiel MD Unavailable Jared Murillo MD Unavailable Reason for Visit * Reason Comments Medication Refill Encounter Details Date Type Department Care Team (Late st Contact Info) Description 06/24/[address] [phone] Sabina Lowery MD [facility] [address] [address] Medication Refill Social History Tobacco [...] and Family Once a week 09/05/2019 Attends Taoism Services Never 09/05 Active Member of Clubs [...] Answer Date Recorded PHQ-2 Score 2 12/04/2020 [facility] - Occupational [...] have received? Master's degree (e.g., MA, MS, Hoal, MEd, NUT TIGHTENER, YASMANY) 09/05/2019 Comments No Sex and Gender Information Value Date Recorded Sex Assigned at Female 11/08/2021 8:44 PM CDT Legal Sex Female 4:39 AM VEGETABLE SCULLION Gender Identity Female 11/08/2021 8:44 PM CDT Sexual Orientation Straight 11/08/2021 8: 44 PM CDT documented as of this encounter Miscellaneous Notes * Telephone Encounter - Nichol Mendoza RN - 06/25/2021 11:34 AM CST Prescription approved per [facility] Refill Protocol. For one time needs PX Nichol Mendoza RN TABLE SCULLION documented in this encounter Plan of Treatment Not on file documented as of this encounter Visit Diagnoses Diagnosis General counseling for prescription of oral contraceptives documented in this encounter Additional Health Concerns Assessment Noted Time PHQ-9 Depression Total Score: 13 020 7:03 AM VEGETABLE SCULLION documented as of this encounter Care Teams Rug Measurer Relationship Specialty Start Date End Date Jared Murillo MD PCP - General Family Practice 12/25/18 Marc Conn PA-C [address] [place] [address] Assigned PCP 12/24/20 08/07/21 Sabina Lowery MD [facility] [address] [place] [address] Assigned PCP 08/08/21 12/24/21 Nithin Abbott MD [address] [address] [place] [address] Assigned OBGYN Provider 12/25/2105/20 Marc Conn PA-C [facility] [address] [address] Assigned PCP 12/25/21 06/10/22 Suzette Hough CNM [address] [place] [address] Assigned OBGYN Provider 05/21/22 Sabina Lowery MD [address] [place] [address] Assigned PCP 06/11/22 07/15/22 Marc Conn PA-C [facility] [address] [address] Assigned PCP 07/16/22 09/23/22 Sabina Lowery MD [address] [place] [address] Assigned PCP 09/24/22 12/23/22 Aniket Curiel MD [address] [place] [address] Assigned PCP 12/24/22 02/19/24 [place] [address] [place] [address] Assigned PCP 02/20/24 documented as of this encounter
--- OUTSIDE RECORDS SUMMARY | 2025-02-13 17:57 | XMS_ITS | Encounter Summary ---
Author Organization [place] Address [address] [place] [address]. [place] [address] Care Team Providers Care Auto Damage Estimator Name Role Phone Jared Murillo MD Primary Care Provider [phone] Sabina Lowery MD Unavailable + Nithin Abbott MD Unavailable [phone] Marc Conn PA-C Unavailable [phone] Suzette Hough [facility] Unavailable [phone] Sabina Lowery MD Unavailable + Marc Conn PA-C Unavailable [phone] Sabina Lowery MD Unavailable + Aniket Curiel MD Unavailable Jared Murillo MD Unavailable Encounter Details Date Type Department Care Team (Late st Contact Info) Description 11/08/2021 MyC Medical Advice [address] [phone] Chadwick Rosado Social History Tobacco [...] and Family Once a week 09/05/2019 Attends Zoroastrian Services Never 09/05 Active Member of Clubs [...] Master's degree (e.g., MA, MS, Hola, MEd, MEDICAL RECORDS TECH, YASMANY) 09/05/2019 Comments No Sex and Gender Information Value Date Recorded Sex Assigned at Female 11/08/2021 8:44 PM CDT Legal Sex Female 4:39 AM AUTOMOBILE ACCESSORIES INSTALLER Gender Identity Female 11/08/2021 8:44 PM CDT Sexual Orientation Straight 11/08/2021 8: 44 PM CDT documented as of this encounter Plan of Treatment Not on file documented as of this encounter Visit Diagnoses Not on filedocumented in this encounter Additional Health Concerns Assessment Noted Time PHQ-9 Depression Total Score: 13 020 7:03 AM AUTOMOBILE ACCESSORIES INSTALLER documented as of this encounter Care Teams Auto Damage Estimator Relationship Specialty Start Date End Date Jared Murillo MD PCP - General Family Practice 12/25/18 Sabina Lowery MD [facility] [address] [place] [address] Assigned PCP 08/08/21 12/24/21 Nithin Abbott MD [address] [facility] [address] [place] [address] Assigned OBGYN Provider 12/25/2105/20 Marc Conn PA-C [address] [place] [address] Assigned PCP 12/25/21 06/10/22 Suzette Hough CNM [address] [facility] [address] [place] [address] Assigned OBGYN Provider 05/21/22 Sabina Lowery MD [facility] [address] [place] [address] Assigned PCP 06/11/22 07/15/22 Marc Conn PA-C [address] [place] [address] Assigned PCP 07/16/22 09/23/22 Sabina Lowery MD [address] [place] [address] Assigned PCP 09/24/22 12/23/22 Aniket Curiel MD [address] [address] Assigned PCP 12/24/22 02/19/24 [place] [address] [place] [address] Assigned PCP 02/20/24 documented as of this encounter
[2025-02-13 18:00] VITALS: BP 132/83; PULSE 95; RESP 16; TEMP 36.6; O2SAT 96; BMI 31.5
[2025-02-13 18:44] LABS: Troponin, Point-of-Care* 0.00 ng/ml (0.01-0.04)
[2025-02-13 18:57] LABS: Hematocrit 43.9 % (33.0-51.0); Hemoglobin* 14.5 gm/dL (12.0-16.0); Immature Granulocytes Pct Auto 0.6 %; Lymphocytes Absolute Auto 4.90 K/uL (0.90-2.90); Mean Corpuscular HGB Conc 33 gm/dL (32-36); Mean Corpuscular Hemoglobin 30 pg (26-34); Mean Corpuscular Volume 90 fL (80-100); RDW Coefficient of Variation % 12.3 % (11.5-15.5); Red Blood Count 4.90 m/uL (4.00-5.20); White Blood Count* 13.67 K/uL (4.50-11.00)
[2025-02-13 19:11] LABS: Immature Granulocytes Abs Auto 0.10 K/uL (0.00-0.30); Slide Review Reflex No
[2025-02-13 19:17] LABS: Chloride* 102 mmol/L (96-114); Potassium* 3.7 mmol/L (3.6-5.1); Sodium* 136 mmol/L (135-149)
[2025-02-13 19:19] LABS: D Dimer Quantitative* < 0.27 ug/ml (0.00-0.50)
[2025-02-13 19:20] LABS: Anion Gap 8 mEq/L (7-15); Blood Urea Nitrogen* 16 mg/dL (5-24); Calcium* 9.3 mg/dL (8.4-10.6); Carbon Dioxide* 26 mmol/L (20-32); Creatinine* 0.7 mg/dL (0.5-1.5); Est. Creatinine Clearance* 91.32; Estimated Glomerular Filt Rate 109 ml/min; Glucose* 92 mg/dL (60-115)
[2025-02-13 19:27] VITALS: BP 113/79; PULSE 87; RESP 12; O2SAT 98
--- NOTE | 2025-02-13 20:06 | CRLHL7_ITS ---
For Patients: As a result of the Cures Act, medical imaging exams and procedure reports are released immediately into your electronic medical record. You may view this report before your referring provider. If you have questions, please contact your health care provider. Indication: Trauma. Technique: Left shoulder, 3 views. Comparison: None. Findings: Bones: Alignment is normal. No fractures or bone lesions. Joint spaces: Minimal degenerative changes in the left shoulder.. Soft tissues: Unremarkable. Impression: No sign of acute injury. Dictated by Frankie Headley MD @ 02/13/2025 8:52:22 PM (Electronically Signed)
--- NOTE | 2025-02-13 20:06 | CRLHL7_ITS ---
For Patients: As a result of the Cures Act, medical imaging exams and procedure reports are released immediately into your electronic medical record. You may view this report before your referring provider. If you have questions, please contact your health care provider. INDICATION: Injury and pain. TECHNIQUE: Chest and left ribs 3 views. COMPARISON: September 13, 2024. FINDINGS: Cardiovascular and mediastinum: Heart size and vasculature are normal in caliber and appearance. Mediastinum is within normal limits. Lungs and pleural spaces: Lungs are clear. No sign of infiltrate or mass. No sign of pleural effusion. No pneumothorax. Bones and soft tissues: Detailed oblique images of the left ribs demonstrate no fractures or bone lesions. IMPRESSION: Unremarkable chest and left ribs. Dictated by Frankie Headley MD @ 02/13/2025 8:51:44 PM (Electronically Signed)
[2025-02-13 20:08] LABS: Troponin, Point-of-Care* 0.01 ng/ml (0.01-0.04)
[2025-02-13 20:48] VITALS: O2SAT 98
--- NOTE | 2025-02-13 20:56 | ED.CHESTPAIN ---
HPI - Chest Pain General Date Seen: 02/13/25 Chief Complaint: Chest Pain Stated Complaint: L arm/rib pain, thinks it might be heart attack Time Seen by Provider: 02/13/25 19:46 Source: patient Mode of arrival: ambulatory Limitations: no limitations History of Present Illness HPI narrative: Patient is a 44-year-old female presenting for left-sided shoulder and mid axillary rib pain. She states she 1st noticed the pain yesterday and thought she just slept wrong her shoulder. States today pain is seem to be getting worse throughout the day. Has never had pain like this before. Does not notice any pain with movement of her shoulder. Denies any pain with deep breaths. States the pain feels like an 8/10 in intensity. Pain seems to move around her shoulder but is mostly in the anterior aspect. Does not radiate down the arm. Does not radiate up the neck. Denies any shortness of breath. No history of blood clots. Was at rest when the pain started yesterday around 14:00. Has not done any recent heavy lifting or any known injuries to the arm. Denies fevers, chills, abdominal pain, headache, lightheadedness, dizziness, weakness, numbness. No other concerns noted. Related Data Home Medications ?Medication ?Instructions ?Recorded ?Confirmed bupropion HCl 150 mg 24 hr tablet, 150 mg PO QAM 12/19/23 02/04/25 extended release clonazepam 0.5 mg tablet 0.5 mg PO HS PRN 12/19/23 02/04/25 gabapentin 100 mg capsule 100 - 300 mg PO TID PRN 12/19/23 02/04/25 multivitamin (Daily Multi-Vitamin 1 tab PO QAM 12/19/23 02/04/25 tablet) omeprazole 20 mg capsule,delayed 20 mg PO DAILY 12/19/23 02/04/25 release duloxetine 20 mg capsule,delayed 40 mg PO DAILY 09/14/24 02/04/25 release azelaic acid 15 % topical gel topical BID 01/15/25 02/04/25 ketoconazole 2 % shampoo topical 3XW 01/15/25 02/04/25 minoxidil 2.5 mg tablet mg PO 01/15/25 02/04/25 Previous Rx's ?Medication ?Instructions ?Recorded acetaminophen 325 mg tablet 650 mg (2 x 325 mg) PO Q6H PRN 09/16/24 pain, headache, fever #100 tabs tirzepatide (weight loss) 2.5 2.5 mg (0.5 mL) subcut QWEEK #2 mL 10/14/24 mg/0.5 mL subcutaneous pen injector (Zepbound) ondansetron HCl 8 mg tablet 8 mg PO BID-TID PRN nausea and 10/18/24 vomiting #18 tabs meloxicam 15 mg tablet 15 mg PO DAILY #30 tabs 12/27/24 cephalexin 500 mg capsule 500 mg PO BID #10 caps 01/21/25 Allergies Allergy/AdvReac Type Severity Reaction Status Date / Time No Known Drug Allergies Allergy Verified 02/04/25 10:33 Review of Systems Status of ROS Reports: 10 or more systems reviewed and unremarkable except as noted in History and below [facility] Medical History Hepatomegaly ?R16.0 - Hepatomegaly, not elsewhere classified (ICD-10) Surgical History S/P laparoscopic cholecystectomy ?Z90.49 - Acquired absence of other specified parts of digestive tract (ICD-10) History of cholecystectomy ?Z90.49 - Acquired absence of other specified parts of digestive tract (ICD-10) H/O liposuction ?Z98.890 - Other specified postprocedural states (ICD-10) History of surgery ?Z98.890 - Other specified postprocedural states (ICD-10) Social History Narrative: Smokes 4-5 cigarettes/day. Rare alcohol use. Currently on short-term disability because of back pain. 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 What is your current living situation?: I presently have a place to live Problems where you live: no known problems Problems where you live details: NA In the past 12 months, utilities in danger of being shut off: no In past 12 months, lack of transportation kept you from medical appts, meetings, work, or getting things needed for daily living: no In the past 12 mos, have been you worried that your food would run out before you had money to buy more?: never true In the past 12 mos, the food you bought just didn't last and you didn't have money to buy more?: never true Highest level of school completed/degree received: Master's degree Smoking Status: Current every day smoker What tobacco products do you use: cigarettes Do you use any of these nicotine containing products: None Second hand tobacco smoke exposure: No How often do you have a drink containing alcohol: monthly or less How many standard drinks containing alcohol do you have on a typical day: 1 or 2 How often do you have six or more drinks on one occasion: Never AUDIT-C Alcohol total score: 1 Non-prescribed substance use: denies use Caffeine: No How often does anyone, including family, friends and others, physically hurt you: never How often does anyone, including family, friends and others, insult or talk down to you: never How often does anyone, including family, friends and others, threaten you with harm: never How often does anyone, including family, friends and others, scream or curse at you: never Are you using contraception or practicing any form of control: Yes (IUD) service: No Exam Narrative Exam Narrative: Const: Well-nourished, Well-developed, in mild distress Eyes: PERRL, no conjunctival injection, and symmetrical lids HENT: Atraumatic external nose and ears. Moist mucous membranes. Neck: Symmetric, trachea midline, No thyromegaly. CVS: RRR, No murmurs or gallops. Peripheral pulses 2+ and equal in all extremities RESP: Unlabored respiratory effort. Clear to auscultation bilaterally. GI: Nontender/Nondistended, No rebound or guarding. MSK:Extremities w/o deformity, Normal Active ROM, no tenderness noted to palpation Skin: Warm, Dry. No rashes or lesions. Neuro: Normal Muscle tone, No focal neurological deficits. Psych: Awake, Alert, & Oriented x3. Appropriate mood and affect. Const Vital Signs, click to edit/add: Vital Signs - 24 hr 02/13/25 18:00 02/13/25 19:27 02/13/25 20:48 Temperature 97.8 F Pulse Rate [Pulse Oximeter] 95 87 Respiratory Rate 16 12 Blood Pressure [Right Upper Arm] 132/83 113/79 Pulse Oximetry 96 98 98 Oxygen Delivery Method Room Air Room Air Course Vital Signs Vital signs: Initial Vital Signs Temperature 97.8 F 02/13/25 18:00 Temperature Source Temporal Artery Scan 02/13/25 18:00 Pulse Rate 95 02/13/25 18:00 Respiratory Rate 16 02/13/25 18:00 Blood Pressure 132/83 02/13/25 18:00 Blood Pressure Mean 99 02/13/25 18:00 Blood Pressure Position Sitting 02/13/25 18:00 Pulse Oximetry 96 02/13/25 18:00 Oxygen Delivery Method Room Air 02/13/25 18:00 Vital Signs Temperature 97.8 F 02/13/25 18:00 Pulse Rate 95 02/13/25 18:00 Respiratory Rate 16 02/13/25 18:00 Blood Pressure 132/83 02/13/25 18:00 Pulse Oximetry 96 02/13/25 18:00 Oxygen Delivery Method Room Air 02/13/25 18:00 Temperature 97.8 F 02/13/25 18:00 Pulse Rate 87 02/13/25 19:27 Respiratory Rate 12 02/13/25 19:27 Blood Pressure 113/79 02/13/25 19:27 Pulse Oximetry 98 02/13/25 20:48 Oxygen Delivery Method Room Air 02/13/25 19:27 Medications Administered Medications: Discontinued Medications Generic Name Dose Route Start Last Admin Trade Name Clover PRN Reason Stop Dose Admin Ketorolac Tromethamine 15 mg 02/13/25 20:06 02/13/25 20:13 Ketorolac 15 Mg/Ml Inj IVP 02/13/25 20:07 15 mg ONCE ONE Administration MDM - Chest Pain MDM Narrative Medical decision making narrative: Patient is a 44-year-old female presenting for left shoulder and rib pain. I do not believe this is related to aortic dissection or aortic aneurysm. Did have CBC, BMP, D-dimer, troponin done in triage which showed no acute concerning abnormalities other than a slightly elevated. Of note she does frequently have elevated white blood cell counts. Will do x-rays to look for any signs of fractures, pneumonia, pneumothorax. EKG shows no acute concerning abnormalities. Will repeat the troponin also. Toradol given for pain. PE can be ruled out with the normal D-dimer. Repeat troponin is also within normal limits. Do not believe this is ACS related. This seems most likely musculoskeletal in nature. Imaging reviewed by myself the radiologist shows no acute concerning abnormalities. I do believe she is safe for discharge and she is agreeable to this plan. Does state the Toradol helped with her pain. Does not want prescription. Lab Data Labs: Lab Results 02/13/25 02/13/25 Range/Units 16:22 19:50 WBC 13.67 H (4.50-11.00) K/uL RBC 4.90 (4.00-5.20) m/uL Hgb 14.5 (12.0-16.0) gm/dL Hct 43.9 (33.0-51.0) % MCV 90 (80-100) fL MCH 30 (26-34) pg MCHC 33 (32-36) gm/dL RDW Coeff of Alhaji 12.3 (11.5-15.5) % Plt Count 415 (140-440) K/uL Neut % (Auto) 57.2 (42.0-72.0) % Lymph % (Auto) 35.8 (20-44) % Yell % (Auto) 4.9 (0.0-11.0) % Eos % (Auto) 1.3 (0.0-7.0) % Baso % (Auto) 0.2 (0.0-3.0) % Neut # (Auto) 7.80 H (1.7-7.0) K/uL Lymph # (Auto) 4.90 H (0.90-2.90) K/uL Yell # (Auto) 0.70 (0.00-0.90) K/UL Eos # (Auto) 0.20 (0.00-0.50) K/uL Baso # (Auto) 0.00 (0.00-0.30) K/uL Abs Immat Gran (auto) 0.10 (0.00-0.30) K/uL Imm/Tot Granulo (auto) 0.6 % D-Dimer Quant (PE/DVT) < 0.27 (0.00-0.50) ug/ml Sodium 136 (135-149) mmol/L Potassium 3.7 (3.6-5.1) mmol/L Chloride 102 (96-114) mmol/L Carbon Dioxide 26 (20-32) mmol/L Anion Gap 8 (7-15) mEq/L BUN 16 (5-24) mg/dL Creatinine 0.7 (0.5-1.5) mg/dL Estimated Creat Clear 91.32 Estimated GFR 109 ml/min Glucose 92 (60-115) mg/dL Calcium 9.3 (8.4-10.6) mg/dL POC Troponin I 0.00 L 0.01 (0.01-0.04) ng/ml Imaging Data Left ribs and chest x-ray: Attestation: I have reviewed the pertinent imaging results. Radiologist's impression: Unremarkable chest and left ribs. Dictated by Frankie Headley MD @ 02/13/2025 8:51:44 PM Left shoulder x-ray: Attestation: I have reviewed the pertinent imaging results. Radiologist's impression: No sign of acute injury. Dictated by Frankie Headley MD @ 02/13/2025 8:52:22 PM ECG Data Attestation: I personally reviewed and interpreted this ECG as follows: Prior ECG tracings: not available for review Interpretation: Normal sinus rhythm with a rate of 81 beats per minute, normal intervals, normal axis, no ST or T-wave abnormalities. Discharge Plan Discharge Clinical Impression: Atypical chest pain Patient Disposition: Home, Self-Care Condition: Stable Instructions: Noncardiac Chest Pain (ED) Additional Instructions: At this time I do not see any emergent issues the be causing your chest pain. I do recommend close follow-up with the primary care provider. Return to emergency department for new or worsening symptoms. Try taking Tylenol and ibuprofen home for pain. Prescriptions: No Action ketoconazole 2 % shampoo topical 3XW minoxidil 2.5 mg tablet PO azelaic acid 15 % gel topical BID bupropion HCl 150 mg tablet extended release 24 hr 150 mg PO QAM gabapentin 100 mg capsule 100 - 300 mg PO TID PRN clonazepam 0.5 mg tablet 0.5 mg PO HS PRN multivitamin [Daily Multi-Vitamin] Tablet 1 tab PO QAM omeprazole 20 mg capsule,delayed release(DR/EC) 20 mg PO DAILY duloxetine 20 mg capsule,delayed release(DR/EC) 40 mg PO DAILY acetaminophen 325 mg Tablet 650 mg PO Q6H PRN (Reason: pain, headache, fever) Qty: 100 0RF Zepbound 2.5 mg/0.5 mL pen injector 2.5 mg subcut QWEEK Qty: 2 0RF ondansetron HCl 8 mg tablet 8 mg PO BID-TID PRN (Reason: nausea and vomiting) Qty: 18 0RF meloxicam 15 mg tablet 15 mg PO DAILY Qty: 30 1RF cephalexin 500 mg capsule 500 mg PO BID Qty: 10 0RF Follow Up/Referrals: Topher Maldonado PA-C [Primary Care Provider, Family Practice] Stand Alone Forms: [facility] Info Instructions
[2025-02-13 21:18] VITALS: BP 134/7; TEMP 36.6; O2SAT 98
== END 2025-02-13 21:21 | disposition home or self-care (01) ==
PROVIDERS: Emergency Provider Student in an Organized Health Care Education/Training Program; PCP Physician Assistant Medical
DX: R07.89 Other chest pain (principal)
CPT/HCPCS: 36415; 71101; 73030; 80048; 84484; 85025; 85379; 93005; 94761; 96374; 99284; J1885

== ENCOUNTER 2025-02-14 07:56 | Outpatient (CLI) | payer BC, SELFPAY ==
--- NOTE | 2025-02-14 08:00 | CRLHL7_ITS ---
For Patients: As a result of the Century Cures Act, medical imaging exams and procedure reports are released immediately into your electronic medical record. You may view this report before your referring provider. If you have questions, please contact your health care provider. INDICATION: Nasal congestion. TECHNIQUE: High-resolution images of the paranasal sinuses were obtained without contrast. Multiplanar reconstructions. FINDINGS: Frontal: The frontal air cells are clear and inferior frontal recess is patent. Ethmoid: The ethmoid air cells are clear. Sphenoid: The sphenoid air cells are clear the sphenoid ethmoidal recesses are patent. Maxillary: There is mild 3 mm or less mucosal thickening at the base of the left maxillary antrum/Schneiderian membrane. Note multiple root canals in adjacent left side maxillary molar teeth. The right maxillary sinus is clear. The bilateral ostiomeatal units are patent. Nasal fossa: Nasal septum is near midline. Small multi nodular mucosal changes of the inferior turbinates. Posterior nasal fossa and nasopharynx unremarkable. IMPRESSION: 1. Mild focal mucosal thickening at the base the left maxillary antrum. See above. 2. Other paranasal sinuses are clear. 3. Possible tiny nasal polyps but without obstruction. Patent bilateral ostiomeatal units. Please note that all CT scans at this facility use dose modulation, iterative reconstruction, and/or weight-based dosing when appropriate to reduce radiation dose to as low as reasonably achievable. Dictated by Sam Luna MD @ 02/14/2025 9:24:49 AM (Electronically Signed)
== END 2025-02-14 07:57 | disposition home or self-care (01) ==
LOC: CT 07:56
PROVIDERS: PCP Physician Assistant Medical; Visit Provider Otolaryngology
DX: R09.81 Nasal congestion (principal); J32.0 Chronic maxillary sinusitis; J33.9 Nasal polyp, unspecified
CPT/HCPCS: 70486

== ENCOUNTER 2025-04-24 06:56 | Outpatient (CLI) | payer BC, SELFPAY ==
--- NOTE | 2025-04-24 08:20 | P.ANES_ITS ---
Anesthesia Charges Start Date/Time Anesthesia Start Date: 04/24/25 Anesthesia Start Time: 08:00 Stop Date/Time Anesthesia Stop Date: 04/24/25 Anesthesia Stop Time: 08:17 Coding CPT Codes CPT Codes: ANES UPR GI NDSC PX NOS - 78922 ([id number]) P2 - PATIENT W/MILD SYST DISEASE, QZ - RETORT PRESS OPERATOR SVC W/O OYSTER PREPARER BY
--- NOTE | 2025-04-24 08:20 | W.ANESCHARGE ---
Anesthesia Charges Start Date/Time Anesthesia Start Date: 04/24/25 Anesthesia Start Time: 08:00 Stop Date/Time Anesthesia Stop Date: 04/24/25 Anesthesia Stop Time: 08:17 Coding CPT Codes CPT Codes: ANES UPR GI NDSC PX NOS - 35913 ([id number]) P2 - PATIENT W/MILD SYST DISEASE, QZ - CEO [place] SVC W/O GRADER MARKER BY
--- NOTE | 2025-04-24 08:38 | P.ANES_ITS ---
Anesthesia Charges Start Date/Time Anesthesia Start Date: 04/24/25 Anesthesia Start Time: 08:00 Stop Date/Time Anesthesia Stop Date: 04/24/25 Anesthesia Stop Time: 08:17 Coding CPT Codes CPT Codes: ANES UPR GI NDSC PX NOS - 37532 ([id number]) QK - SPRING ASSEMBLER 2-4 CNCRNT ANES PROC, QX - SILVER DESIGNER SVC W/ MD MED DIRECTION, P2 - PATIENT W/MILD SYST DISEASE
--- NOTE | 2025-04-24 08:38 | W.ANESCHARGE ---
Anesthesia Charges Start Date/Time Anesthesia Start Date: 04/24/25 Anesthesia Start Time: 08:00 Stop Date/Time Anesthesia Stop Date: 04/24/25 Anesthesia Stop Time: 08:17 Coding CPT Codes CPT Codes: ANES UPR GI NDSC PX NOS - 43855 ([id number]) QK - BATTING MACHINE OPERATOR 2-4 CNCRNT ANES PROC, QX - CHICKEN FANCIER SVC W/ MD MED DIRECTION, P2 - PATIENT W/MILD SYST DISEASE
== END 2025-04-24 06:57 | disposition home or self-care (01) ==
LOC: OP CLINIC 06:56
PROVIDERS: PCP Physician Assistant Medical; Visit Provider Surgery
DX: K21.9 Gastro-esophageal reflux disease without esophagitis (principal); R13.10 Dysphagia, unspecified
CPT/HCPCS: 00731; 43239; 88305; J2704; J3490

== ENCOUNTER 2025-05-15 11:56 | Outpatient (CLI) | payer BC, SELFPAY ==
--- NOTE | 2025-06-17 12:21 | W.PM.SLEEP ---
Sleep Study Details Details Interpreting Provider: Leobardo Date of Sleep Study: 05/15/25 Sleep Study Details: STUDY TYPE:? Home unattended ? BMI:? 30.78 ORDERING PROVIDER:? Leobardo INDICATION:? Concern for sleep apnea ? SLEEP SUMMARY:? 464 minutes RESPIRATORY SUMMARY:? AHI 13.3 Low oxygen 79 20.1% of study oxygen less than 90% Snoring 100% PERIODIC LIMB MOVEMENTS OF SLEEP:? Not recorded CARDIAC:? Range 66-127, mean 81.9 beats per minute IMPRESSION:? Mild obstructive sleep apnea. 20% of the study oxygen level was less than 90% RECOMMENDATION: Treatment options include CPAP or dental appliance. Once effective therapy is established overnight oximetry should be performed. Further cardiopulmonary evaluation may be indicated
== END 2025-05-15 11:57 | disposition home or self-care (01) ==
LOC: SLEEP 11:56
PROVIDERS: PCP Physician Assistant Medical; Visit Provider Otolaryngology
DX: G47.33 Obstructive sleep apnea (adult) (pediatric) (principal)
CPT/HCPCS: 95806

== ENCOUNTER 2025-06-03 09:55 | Outpatient (CLI) | payer BC, SELFPAY ==
--- NOTE | 2025-06-03 10:00 | CRLHL7_ITS ---
For Patients: As a result of the 21st Century Cures Act, medical imaging exams and procedure reports are released immediately into your electronic medical record. You may view this report before your referring provider. If you have questions, please contact your health care provider. INDICATION: Gastroparesis. TECHNIQUE: 860 microcuries of Tc-99m filtered Sulfur Colloid was ingested with a standard meal (1 egg, 2 pieces of toast and jelly, and 4.2 ounces of juice). Imaging performed up to 240 minutes. FINDINGS: Scintigraphic evidence for delayed gastric emptying. 0 minutes: 100 percent of activity remains. 30 minutes: 91 percent of activity remains. 60 minutes: 76 percent of activity remains. 90 minutes: 69 percent of activity remains. 120 minutes: 65 percent of activity remains. 240 minutes: 29 percent of activity remains. IMPRESSION: Scintigraphic evidence for delayed gastric emptying. Dictated by Sam Ott MD @ 06/04/2025 10:20:40 AM (Electronically Signed)
== END 2025-06-03 09:56 | disposition home or self-care (01) ==
LOC: NM 09:56
PROVIDERS: PCP Physician Assistant Medical; Visit Provider Physician Assistant Medical
DX: K31.84 Gastroparesis (principal)
CPT/HCPCS: 78264; A9541